=== PATIENT | male | born 1985 | race Caucasian/White ===

== ENCOUNTER 2025-06-17 11:52 | Emergency (ER) | payer MEDICAID, SELFPAY ==
--- OUTSIDE RECORDS SUMMARY | 2025-04-23 07:51 | XMS_ITS | Encounter Summary ---
Author Organization Healthcare Address [address] [place] [address] Care Team Providers Care O And M Supervisor Name Role Phone Day, Marilin PATEL Primary Care Provider [phone] Reason for Referral * Imaging (Routine) - Closed Specialty Diagnoses / Procedures Referred By Mary hill Referred To Contact Radiology Diagnoses Intra-abdominal abscess (CMS/HCC) Procedures CT Abdomen Pelvis w IV Contrast Anais Easton MD [address] [phone] Phone: tel: fax: Referral ID Status Reason Start Date Expiration Date Visits Re quested Visits Authorized [id number] Closed 04/04/2025 10/04/2026 1 1 Reason for Visit * Imaging (Routine) - Closed Specialty Diagnoses / Procedures Referred By Mary hill Referred To Contact Radiology Diagnoses Intra-abdominal abscess (CMS/HCC) Procedures CT Abdomen Pelvis w IV Contrast Anais Easton MD [address] [facility] [address] [place] [phone] Phone: tel: fax: Referral ID Status Reason Start Date Expiration Date Visits Re quested Visits Authorized [id number] Closed 04/04/2025 10/04/2026 1 1 Encounter Details Date Type Department Care Team (Latest Contact Info) Description 04/23/2025 8:51 AM EDT - 04/23/2025 11:59 PM EDT Hospital Encounter [facility] [address] [place] [address] Intra-abdominal abscess (CMS/HCC) Discharge Disposition: Home or Self Care Social History Tobacco Use Types Packs/Day Years Used Date Smoking Tobacco: Every Day Passive Smoke Exposure: Never Smokeless Tobacco: Former Alcohol Use Standard Drinks/Week Comments Never 0 (1 standard drink = 0.6 oz pur e alcohol) AUDIT-C Answer Date Recorded Q1: How often do you have a drink containing alcohol? Never 04/04/2025 Q2: How many drinks containi ng alcohol do you have on a typical day when you are drinking? Patient does not drink 5 Q3: How often do you have si x or more drinks on one occasion? Never 04/04/2025 Sex and Gender Information Value Date Recorded Sex Assigned at Not on file Legal Sex Male 8:42 PM EDT Gender Identity Male 06/11/2025 1:33 PM EDT Sexual Orientation Not on file documented as of this encounter Medications at Time of Discharge atomoxetine (Strattera) 100 MG capsule Take 1 capsule by mouth daily. emtricitabine-tenofov ir disoproxil fumarate (Truvada) 200-300 MG tabletIndications:Con tact with and (suspected) exposure to human immunodeficiency virus (hiv) Take 1 tablet by mouth daily. 90 tablet 5 famotidine (Pepcid) 20 MG tablet Take 1 tablet by mouth Daily. fluticasone (Flonase) 50 MCG/ACT nasal spray 1 spray per nostril every day as needed allergies 5 magnesium oxide (Mag-Ox) 400 (240 Mg) MG tablet 5 Melatonin 5 MG tablet tablet take 1-2 tab every night as needed insomnia 5 Mucus Relief 600 MG 12 hr tablet take 1 tab 2 times a day as needed cough/congestio n 5 Multiple Vitamin (Multivitamin) tablet Take 1 tablet by mouth daily. 5 omeprazole (PriLOSEC) [address] capsule daily. 5 traZODone (Desyrel) 50 MG tablet take 1/2 tab - 1 tab every night 5 FLUoxetine (PROzac) 20 MG capsule Take 1 capsule by mouth Daily. 06/07/20 25 ibuprofen 200 MG tablet Take 2 tablets by mouth. 06/07/20 25 SudoGest 30 MG tablet TAKE 2 Tablets by mouth BY MOUTH TWICE DAILY NEEDED FOR congestion 5 06/07/20 25 documented as of this encounter Miscellaneous Notes * Bravo Biggs - Laura Lezama - 04/23/2025 8:58 AM EDT Images from the original note were not included. 1639 Caring for Yourself after Contrast Imaging If you had ORAL contrast: ? You can go back to your normal diet and activities as tolerated. ? Drink plenty of fluids, unless told otherwise. If you had IV contrast: ? You can go back to your normal diet and activities as tolerated. ? Drink plenty of fluids, unless told otherwise. ? Leave a bandage on the site for 30 minutes (where the IV was inserted or blood was drawn). If you had Intravesical (bladder) contrast: ? Return to normal diet and activity. What you need to know about delayed reaction to IV contrast What is IV Contrast? ? Contrast is a dye that is put into your body through an IV. ? It is used for imaging scans such as CT scans and MRIs. ? The contrast makes blood vessels, organs and other parts of your body show up better on the scan. What do I need to do after IV contrast? ? Drink lots of fluids. This will help flush the contrast out of your system. ? Drink 2-3 extra glasses or bottles of water within 4 hours of your scan. What is a contrast reaction? ? A contrast reaction is a bad side effect from the contrast dye. ? It is rare but it does happen. ? They can be mild - such as sneezing, itching, or hives. ? They can be severe - such as trouble breathing, throat swelling, and irregular heart beat. When do these reactions happen? ? They often happen right after the contrast is injected. ? Some happen hours after going home. Go to the nearest Emergency Department right away if you have any of these symptoms after you leavethe clinic or hospital. ? Sneezing ? Itching in your mouth, throat, eyes, ears, or skin ? Rash or hives ? Throwing up or stomach sickness ? High heart rate or ?racing? of your heart ? Feeling dizzy or woozy ? Feeling short of breath or like you can?t take a deep breath ? Feeling very anxious for no other reason It is very important that these reactions be treated. Tell the doctor or nurse that you are having a reaction to IV contrast dye. Do not ignore any sign of a reaction! All reactions must be assessed by a doctor. Call 911 if you are alone and your reaction is more than mild sneezing or itching. If you have a mild reaction, call to speak with a Radiologist, explain that you havehad a contrast reaction, as this needs to be added to your medical record. documented in this encounter Plan of Treatment Upcoming Encounters Date Type Department Care Team (Late st Contact Info) Description 06/20/2025 11:00 AM EST Office Visit [facility] [address] [place] [address] Douglas Sanders PA [address] [facility] [address] [place] [id number] 06/25/2025 11:30 AM EST Office Visit [facility] [address] [place] [id number] Dominique Garcia APRN [address] [place] [id number] documented as of this encounter Procedures Procedure Name Priority Date/Time Associated Diagnosis Comments CT ABDOMEN PELVIS W IV CONTRAST Routine 04/23/2025 9:57 AM EDT Intra-abdominal abscess (CMS/HCC) documented in this encounter Results * CT Abdomen Pelvis w IV Contrast (04/23/2025 9:57 AM EDT) Anatomical Region Laterality Modality Abdomen, Pelvis Computed Tomogra phy Impressions 04/23/2025 10:40 AM EDT Possible superinfection of a chronic collection associated with a prior ileostomy and a prior midline supraumbilical incision. CRITICAL RESULT: No. COMMUNICATION: Per this written report. Drafted by Oswaldo Knox MD on 04/23/2025 10:35 AM Final report signed by Oswaldo Knox MD on 04/23/2025 10:40 AM Narrative 04/23/2025 10:40 AM EDT CLINICAL INDICATION: intra-abdominal abscess TECHNIQUE: Multiple axial CT images were obtained from lung bases through pubic symphysis following administration of IV contrast, Omnipaque 300, 100 mL. Reformatted images in the coronal and sagittal planes were generated from the axial data set to facilitate diagnostic accuracy. Total DLP (Dose-Length Product): 430.55 mGy.cm. Please note: The reported value represents the total of one or more individual components during the CT acquisition on this date and at this time, and as such, the same value may appear in more than one CT report depending on the interpreting/reporting physicians. COMPARISON: September 21, 2024 FINDINGS: Lower Chest: There is basilar atelectasis. Mild motion degradation. Normal heart size. Solid Abdominal Organs: No focal liver lesion. The gallbladder and bile duct are normal. The pancreas, spleen, adrenal glands, and kidneys are normal. GI Tract/Mesentery/Peritoneum: The stomach and duodenum are normal. 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 No evidence of bowel obstruction. Changes of partial colectomy with colorectal colonic anastomosis in the left lower quadrant. There is a chronic appearing fluid collection with associated inflammation. The midline supraumbilical portion of the collection measures approximately 4 cm, previously 1.6 cm. The portion of the collection that extends toward the old ileostomy from deep to the abdominal wall musculature measures 8.8 cm, not substantially changed. Overall the collection extends from the midline in the supraumbilical location through the abdominal wall and then continues to the right of midline back out to the abdominal wall to the site of the presumed prior ileostomy. The total amount of fluid is increased compared to the prior examination. The amount of inflammation at the midline portion of the collection has increased. More inferiorly within the abdominal cavity there is a focus of inflammation with associated calcification in an infraumbilical location which is favored to be fat necrosis. It appears more inflamed than on the prior exam. Pelvic Viscera: The bladder and prostate are within normal limits Lymph Nodes/Vasculature: No adenopathy. Normal caliber aorta and IVC Free Fluid: No free fluid Musculoskeletal and Body Wall: Again noted is a linear fluid collection with increased fluid and increased inflammation involving the midline at the abdomen and prior right ileostomy site. Procedure Note Oswaldo Knox MD - 04/23/2025 CLINICAL INDICATION: intra-abdominal abscess TECHNIQUE: Multiple axial CT images were obtained from lung bases through pubicsymphysis following administration of IV contrast, Omnipaque 300, 100 mL.Reformatted images in the coronal and sagittal planes were generated fromthe axial data set to facilitate diagnostic accuracy. Total DLP (Dose-Length Product): 430.55 mGy.cm. Please note: The reportedvalue represents the total of one or more individual components during theCT acquisition on this date and at this time, and as such, the same valuemay appear in more than one CT report depending on theinterpreting/reporting physicians. COMPARISON: September 21, 2024 FINDINGS: Lower Chest: There is basilar atelectasis. Mild motion degradation. Normalheart size. Solid Abdominal Organs: No focal liver lesion. The gallbladder and bileduct are normal. The pancreas, spleen, adrenal glands, and kidneys arenormal. GI Tract/Mesentery/Peritoneum: The stomach and duodenum are normal. Thereare changes of ileocecectomy with ileocolic anastomosis. No evidence ofbowel obstruction. Changes of partial colectomy with colorectal colonicanastomosis in the left lower quadrant. There is a chronic appearing fluidcollection with associated inflammation. The midline supraumbilicalportion of the collection measures approximately 4 cm, previously 1.6 cm.The portion of the collection that extends toward the old ileostomy fromdeep to the abdominal wall musculature measures 8.8 cm, not substantiallychanged. Overall the collection extends from the midline in thesupraumbilical location through the abdominal wall and then continues tothe right of midline back out to the abdominal wall to the site of thepresumed prior ileostomy. The total amount of fluid is increased comparedto the prior examination. The amount of inflammation at the midlineportion of the collection has increased. More inferiorly within the abdominal cavity there is a focus ofinflammation with associated calcification in an infraumbilical locationwhich is favored to be fat necrosis. It appears more inflamed than on theprior exam. Pelvic Viscera: The bladder and prostate are within normal limits Lymph Nodes/Vasculature: No adenopathy. Normal caliber aorta and IVC Free Fluid: No free fluid Musculoskeletal and Body Wall: Again noted is a linear fluid collectionwith increased fluid and increased inflammation involving the midline atthe abdomen and prior right ileostomy site. IMPRESSION: Possible superinfection of a chronic collection associated with a priorileostomy and a prior midline supraumbilical incision. CRITICAL RESULT: No. COMMUNICATION: Per this written report. Drafted by Oswaldo Knox MD on 04/23/2025 10:35 AM Final report signed by Oswaldo Knox MD on 04/23/2025 10:40 AM us Anais Easton MD IMG CT PROCEDURES Final R esult documented in this encounter Visit Diagnoses Diagnosis Intra-abdominal abscess (CMS/HCC) Peritoneal abscess documented in this encounter Administered Medications Inactive Administered Medications - up to 3 most recent administrations Medication Order MAR Action Action Date Dose Rate Site iohexol (OMNIPaque) 300 MG/ML injection 100 mL 100 mL, Intravenous, Once in imaging, 1 dose, Starting on 04/23/25 at 0858, Until 04/23/25 at 0945, Routine, Imaging Protocol Orders Given 04/23/2025 9:45 AM EDT 100 mL iohexol (OMNIPaque) 9 MG/ML oral contrast 500 mL 500 mL, Oral, Once in imaging, 1 dose, Starting on 04/23/25 at 0858, Until 04/23/25 at 0919, Routine, Imaging Protocol Orders Given 04/23/2025 9:19 AM EDT 500 mL documented in this encounter Additional Health Concerns Assessment Noted Time A Body Mass Index follow-up plan has been documented for the patient 04/13/2025 2:30 PM EDT documented as of this encounter Care Teams O And M Supervisor Relationship Specialty Start Date End Date Day, AMANDA Gaston [address] [place] [address] PCP - General 12/26/20 documented as of this encounter
--- OUTSIDE RECORDS SUMMARY | 2025-05-09 12:45 | XMS_ITS | Encounter Summary ---
Author Organization Healthcare Address [address] [place] [address] Care Team Providers Care Silver [employer] Mixer Name Role Phone Day, Marilin PATEL Primary Care Provider [phone] Reason for Visit * Reason Comments Follow-up Encounter Details Date Type Department Care Team (Late st Contact Info) Description 05/09/2025 1:45 PM EDT Office Visit [facility] [address], [address] [place] [address] Anais Easton MD [address] [place] [address] Infected prosthetic mesh of abdominal wall, subsequent encounter (Primary Dx); Recurrent ventral incisional hernia; Intra-abdominal abscess (CMS/HCC) Social History Tobacco Use Types Packs/Day Years Used Date Smoking Tobacco: Former Cigarettes Passive Smoke Exposure: Never Smokeless Tobacco: Former Tobacco Cessation:Counseling Given: Not Answered Alcohol Use Standard Drinks/Week Comments Never 0 (1 standard drink = 0.6 oz pur e alcohol) AUDIT-C Answer Date Recorded Q1: How often do you have a drink containing alcohol? Never 05/09/2025 Q2: How many drinks containi ng alcohol do you have on a typical day when you are drinking? Patient does not drink Q3: How often do you have si x or more drinks on one occasion? Never 05/09/2025 Sex and Gender Information Value Date Recorded Sex Assigned at Not on file Legal Sex Male 8:42 PM EDT Gender Identity Male 06/11/2025 1:33 PM EDT Sexual Orientation Not on file documented as of this encounter Last Filed Vital Signs Vital Sign Reading Time Taken Comments Blood Pressure 108/73 05/09/2025 1:04 PM EDT Pulse 87 05/09/2025 1:04 PM EDT Temperature 36.4 C (97.5 F) 05/09/2025 1:04 PM EDT Respiratory Rate 16 05/09/2025 1:04 PM EDT Oxygen Saturation 98% 05/09/2025 1:04 PM EDT Inhaled Oxygen Concentration - - Weight 96.3 kg (212 lb 6.4 oz) 05/09/2025 1:04 P M EDT Height 180.3 cm (5' 11 ) 05/09/2025 1:04 PM EDT Body Mass Index 29.62 05/09/2025 1:04 PM EDT documented in this encounter Functional Status * AUDIT-C Score Answer Date of Assessment Author 0 05/09/2025 1:04 PM EDT Marilin Wakefield * Question Answer Date of Assessment Author Q1: How often do you have a drink containing alcohol? Never 05/09/2025 1:04 PM EDT Penny Gama Q2: How many drinks containing alcohol do you have on a typical day when you are drinking? Patient does not drink 05/09/2025 1:04 PM EDT Marilin Gama Q3: How often do you have six or more drinks on one occasion? Never 05/09/2025 1:04 PM EDT Penny Gama documented as of this encounter Miscellaneous Notes * Progress Notes - Sky Curran MD - 05/09/2025 1:45 PM EDT 05/09/25 Brandon Barfield Dear Marilin Langley PA, HPI Brandon Barfield is a 40 y.o. year old male with complex PMH including ventral hernia repair with Bard mesh in the retrorectus space presenting for continued evaluation of intra-abdominal abscess. Patient got a CT scan ordered prior to this visit for ongoing evaluation. Patient states that he has been doing well since last visit. Still has episodes of drainage from the two wounds. He states that they undergo cycles of opening up with purulent drainage that transitions to serous fluid before closing again. He denies any fever, chills, nausea, vomiting, respiratory distress, or chest pain. He denies any new changes in health. Denies personal history of HTN, T2DM, DVT, PE, OH, Stroke, or issues with anesthesia. Denies personal use of ASA or blood thinners. Endorses current vaping Review of Systems Relevant review of systems was obtained as able and is negative unless stated above in HPI. Past Medical History Past Medical History[1] Reviewed as documented above Past Surgical History Past Surgical History: Procedure Laterality Date COLECTOMY HERNIA REPAIR Reviewed as documented above Social History reports that he has quit smoking. His smoking use included cigarettes. He has never been exposed totobacco smoke. He has quit using smokeless tobacco. He reports that he does not drink alcohol and does not use drugs. Reviewed as documented above Family History Family History Problem Relation Name Age of Onset Diabetes Father Hypertension Father Reviewed as documented above Current Medications Current Outpatient Medications Medication Sig Dispense Refill atomoxetine (Strattera) 100 MG capsule Take 1 capsule by mouth. emtricitabine-tenofovir disoproxil fumarate (Truvada) 200-300 MG tablet Take 1 tablet by mouth daily. 90 tablet 0 famotidine (Pepcid) 20 MG tablet Take 1 tablet by mouth Daily. fluticasone (Flonase) 50 MCG/ACT nasal spray 1 spray per nostril every day as needed allergies magnesium oxide (Mag-Ox) 400 (240 Mg) MG tablet Melatonin 5 MG tablet tablet take 1-2 tab every night as needed insomnia Mucus Relief 600 MG 12 hr tablet take 1 tab 2 times a day as needed cough/congestion Multiple Vitamin (Multivitamin) tablet Take 1 tablet by mouth daily. omeprazole (PriLOSEC) [address] capsule SudoGest 30 MG tablet TAKE 2 Tablets by mouth BY MOUTH TWICE DAILY NEEDED FOR congestion traZODone (Desyrel) 50 MG tablet take 1/2 tab - 1 tab every night FLUoxetine (PROzac) 20 MG capsule Take 1 capsule by mouth Daily. (Patient not taking: Reported on 05/09/2025) ibuprofen 200 MG tablet Take 2 tablets by mouth. (Patient not taking: Reported on 05/09/2025) No current facility-administered medications for this visit. Vitals Vitals: 05/09/25 1304 BP: 108/73 Pulse: 87 Resp: 16 Temp: 36.4 ??C (97.5 ??F) SpO2: 98% Physical Exam Physical Exam HENT: Head: Normocephalic. Nose: Nose normal. Mouth/Throat: Mouth: Mucous membranes are moist. Eyes: Extraocular Movements: Extraocular movements intact. Conjunctiva/sclera: Conjunctivae normal. Cardiovascular: Rate and Rhythm: Normal rate. Pulmonary: Effort: Pulmonary effort is normal. No respiratory distress. Abdominal: General: Abdomen is flat. There is no distension. Palpations: Abdomen is soft. Comments: 5mm oval wound at the inferior pole of previous surgical incision, closed with epithelialtissue covering. Epithelial tissue over drain hole on upper right of midline incision Musculoskeletal: General: Normal range of motion. Cervical back: Normal range of motion. Skin: General: Skin is warm. Neurological: General: No focal deficit present. Mental Status: He is alert and oriented to person, place, and time. Mental status is at baseline. Psychiatric: Mood and Affect: Mood normal. Behavior: Behavior normal. Thought Content: Thought content normal. BMI: Body mass index is 29.62 kg/m??. Imaging I personally and independently reviewed the CT images available at today's visit which showed: Possible superinfection of a chronic collection associated with a prior ileostomy and a prior midline supraumbilical incision. Assessment and Plan 1. Infected prosthetic mesh of abdominal wall, subsequent encounter Brandon Barfield is a 40 y.o. year old male with complex PMH including ventral hernia repair with Bard mesh in the retrorectus space presenting for continued evaluation of intra-abdominal abscess demonstrated on CT. - We had an in depth discussion about surgical intervention which includes exploratory laparotomy, revision of previous ventral hernia repair with possible mesh salvage, possible mesh removal, possible wound vac placement. - We also discussed non-operative management that would likely not result in cessation of issues. - In a patient informed discussion, per patient's preference he will be allowed time to come to a decision regarding surgical intervention. He will likely proceed with surgery given how impactful hiscondition is on his daily life. - Additionally educated the patient on the importance of nicotine cessation and its effects on wound healing. Patient will call when he is ready to schedule surgery. No follow-ups on file. Sky Curran MD [1] Past Medical History: Diagnosis Date Colon polyp Personal history of other diseases of the digestive system History of esophageal reflux Personal history of other diseases of the musculoskeletal system and connective tissue History of scoliosis Personal history of other infectious and parasitic diseases History of Helicobacter infection Cosigned by Anais Easton MD at 05/10/2025 9:54 AM EDT Associated attestation - Anais Easton MD - 05/10/2025 9:54 AM EDT I saw and evaluated the patient with the resident/fellow. I discussed the case with the resident/fellow and agree with the findings and plan as documented. Mr. Barfield has an infection of his permanent mesh following retrorectus hernia repair in Sep 2023. Unfortunately he continues to have intermittent drainage from two sinus tracts in his skin. They are not currently draining, but he reports the two wounds will open up every couple weeks, drain purulent fluid and then eventually close back up. We reviewed the CT scan in detail. He has a fluid collection with two sinus tracts that extends from the retrorectus mesh to the areas of concern on his abdomen. He has an additional mesh inferior tothe retrorectus mesh, which appears to be rolled up and in an intraperitoneal position. I reviewed the OP notes by Dr. [facility] at [facility]. He placed the retrorectus permanent mesh andpartially removed mesh that was placed intra-peritoneal from a prior repair. This corresponds with the CT scan and exam findings. Discussed options going forward with Mr. Barfield. I do not believe that the infection will resolve with antibiotics alone as this is now long-standing and with a permenent mesh in the retrorectus position. Surgery will be required for clearance. We may be able to attempt salvage, but again, this is highly unlikely. Will determine based on intra-op findings, but most likely will need mesh resection (both mesh pieces) and staged hernia repair. This will be an extensive operation, will require inpatient management post-operatively. He uses a vape, which will need to stop entirely before surgery. Otherwise no diabetes and weight is appropriate. He has complex social situation and time off work will be a challenge, so will need to coordinate timing of surgery carefully. Will plan for this fall pending ability to arrange appropriate perioperative support I have spent a total of 65 minutes on this encounter, including direct patient care and counseling,review of imaging, review of outside hospital records and coordination of care documented in this encounter Plan of Treatment Upcoming Encounters Date Type Department Care Team (Late st Contact Info) Description 06/20/2025 11:00 AM EST Office Visit [facility] [address] [place] [phone] Douglas Sanders PA [address] [place] [address] 06/25/2025 11:30 AM EST Office Visit [facility] General Surgery [address], [address] [place] [id number] Dominique Garcia APRN [address] [place] [id number] documented as of this encounter Visit Diagnoses Diagnosis Infected prosthetic mesh of abdominal wall, subsequent encounter- Primary Recurrent ventral incisional hernia Intra-abdominal abscess (CMS/HCC) Peritoneal abscess documented in this encounter Additional Health Concerns Assessment Noted Time A Body Mass Index follow-up plan has been documented for the patient 05/10/2025 9:54 AM EDT documented as of this encounter Care Teams [employer] Mixer Relationship Specialty Start Date End Date Korin, AMANDA Gaston [address] [place] [address] PCP - General 12/26/20 documented as of this encounter
--- OUTSIDE RECORDS SUMMARY | 2025-05-30 13:45 | XMS_ITS | Encounter Summary ---
Author Organization Healthcare Address [address] [place] [address] Care Team Providers Care Assessment Specialist Name Role Phone Day, Marilin PATEL Primary Care Provider [phone] Encounter Details Date Type Department Care Team (Latest Contact Info) Description 05/30/2025 2:45 PM EDT Pre-Admission Testing [facility] [address] [place] [address] Infected hernioplasty mesh, subsequent encounter [T85.79XD] (Primary Dx); Preop testing Anesthesia Record Procedure Summary Procedure Name Responsible Anesthesiologist Anesthesia Start Time Anesthesia Stop Time LAPAROTOMY, EXPLORATORY Deniz Arias MD 06/07/25 1229 06/07/25 1514 Events Date Time Event Comment 06/07/2025 1140 1229 An Start The patient was reevaluated immediately before sedation and remains eligible for anesthesia plan. 1235 In Room 1235 An Start Data 1251 An Induction The patient was reevaluated immediately before moderate or deep sedation use and before anesthesia induction. 1254 An Intubation 1258 Anesthesia Ready 1323 Proc Start 1501 Proc Fin 1505 An Extubation 1506 an stop data 1507 Out of Room 1514 Handoff to Receiving I compl eted my handoff to the receiving clinician during which we: 1. Identified the patient 2. Identified the responsible provider 3. Reviewed the pertinent medical history 4. Discussed the surgical course 5. Reviewed intra-op anesthesia management and issues during anesthesia 6. Set expectations for post-procedure period 7. Allowed opportunity for questions and acknowledgement of understanding. 1514 An Stop Meds * Agents No agents on file. * Blood No blood administrations on file. Lines, Drains, and Airways Type Details Placement Removal Wound 06/07/25; 1154; Y; Abdomen; Right, Upper; Lap site weeping, vertical scar weeping. 06/07/25 1154 by Severo Carreon RN Wound 06/07/25; 1323; Y; Y es; Surgical; Open Surg; Abdomen; Upper, Mid 06/07/25 1323 by Nathalia Escobar RN Peripheral IV Placement Date: 05/16 12/07; Placement Time: 1143; Catheter Size: 18 G; Orientation: Right; Location: Antecubital; Site Prep: Chlorhexidine ; Local Anesth: None; Technique: Anatomical landmarks; Inserted by: severo carreon; Insertion Attempts: 1; Patient Tolerance: Tolerated well; Removal Date: 06/08/25; Removal Time: 1022; Removal Reason: Discharge 06/07/25 1143 by Radha Philip RN 06/08/25 1022 by Wilder Tucker RN ETT Placement Date: 05/16 12/07; Placement Time: 1254 (created via procedure documentation); Mask Ventilation: 1; Technique: Direct laryngoscopy; Type: ETT - single; Single Lumen Tube Size: 7.5 mm; Cuffed: Yes; Laryngoscope: Ron; Blade Size: 3; Location: Oral; Grade View: Grade I; Insertion Attempts: 1; Placement Verification: Auscultation, Capnometry; Airway Comments: Atraumatic. No change to dentition. ; Placed by: Resident ; Removal Date: 06/07/25; Removal Time: 1505 06/07/25 1254 by Griselda Taylor MD 06/07/25 1505 by Griselda Taylor MD Peripheral IV Placement Date: 05/16 12/07; Placement Time: 1258 (created via procedure documentation); Catheter Size: 18 G; Orientation: Right; Location: Hand; Technique: Anatomical landmarks; Insertion Attempts: 1; Removal Date: 06/08/25; Removal Time: 1023; Removal Reason: Discharge 06/07/25 1258 by Griselda Taylor MD 06/08/25 1023 by Wilder Tucker RN Urethral Catheter Placement Date: 05/16 12/07; Placement Time: 1302; Inserted by: Nathalia Escobar RN; Type: Non-latex, Single lumen, Temperature probe; Size: 16 Fr.; Balloon Size: 10 mL; Urine Returned: Yes; Removal Date: 06/07/25; Removal Time: 1503 06/07/25 1302 by Nathalia Escobar RN 06/07/25 1503 by Nathalia Escobar RN documented in this encounter Social History Tobacco Use Types Packs/Day Years Used Date Smoking Tobacco: Former Cigarettes Passive Smoke Exposure: Never Smokeless Tobacco: Former Tobacco Cessation:Counseling Given: Not Answered Comments:Smoked up to 2 PPD for of/on 20 years and quit 2022 Alcohol Use Standard Drinks/Week Comments Never 0 [...] Sign Reading Time Taken Comments Blood Pressure 114/74 05/30/2025 2:19 PM EDT Pulse 87 05/30/2025 2:19 PM EDT Temperature 36.6 C (97.8 F) 05/30/2025 2:19 PM EDT Respiratory Rate 14 05/30/2025 2:19 PM EDT Oxygen Saturation 97% 05/30/2025 2:19 PM EDT Inhaled Oxygen Concentration - - Weight 96.9 kg (213 lb 10 oz) 05/30/2025 2:19 PM EDT Height 172.7 cm (5' 8 ) 05/30/2025 2:19 PM EDT Body Mass Index 32.48 05/30/2025 2:19 PM EDT documented in this encounter Miscellaneous Notes * PAT Evaluation Note - Pat Peacock PA - 05/30/2025 2:45 PM EDT HPI Brandon Barfield is a 40 y.o. male who presents with Pre-op Diagnosis * Infected hernioplasty mesh, initial encounter ([facility] [T85.79XA] now scheduled for LAPAROTOMY, EXPLORATORY (N/A), IRRIGATION AND DEBRIDEMENT, ABDOMEN (N/A), REPAIR, HERNIA, INCISIONAL (N/A). Datescheduled is 06/07/2025. PMH including ventral hernia repair with Bard [...] He denies any new changes in health. Past Medical History[1] Family History[2] Social History[3] SURGICAL HISTORY: Surgical History[4] Allergies[5] MEDICATIONS: Current Medications[6] ROS Anesthesia: Date of last anesthetic: OSH recurent ventral incisional hernia repair 09/21/23 No GA issues. history of previous anesthesia. Does not have a history of anesthetic complications, obstructive sleep apnea and PONV. Cardiovascular: Does not have angina, CAD, CHF, dyspnea, dysrhythmias, peripheral edema, hyperlipidemia, murmur, orthopnea, peripheral edema, past MN, PVD, syncope or valvular heart disease. no hypertension: Exercise tolerance is 3 flights of stairs. Respiratory: Negative respiratory ROS. Patient has no dyspnea.Has not had an upper respiratory infection in last30 days. HEENT: Does not have difficulty swallowing, chipped teeth or loose teeth.Does not have temporomandibular joint syndrome. HEENT additional comments: + missing 2 front teeth has partial / top. Neurological: Negative neuro ROS. Musculoskeletal: Negative musculoskeletal ROS. Does not have cervical spine limited mobility. [facility] additional comments: + infx due to mesh abdominal wall Gastrointestinal: Does not have GI malignancy or pancreatitis. Does not have cirrhosis, hepatitis or jaundice. Does not have weight loss. GI/ additional comments: + GERD - well controlled + hiatal hernia + infected prosthetic mesh of abdominal wall - this is 2nd correction for past surgery + hx of PUD Genitourinary: Negative ROS. Hematological/Lymphatic: Does not have anemia. History of no DVT. History of no pulmonary embolism. no history of chemotherapy no history of radiation Does not have HIV or tuberculosis. Hem/Lymph ROS additional comments: + hx of MRSA Endocrine/Metabolic: Negative endocrine ROS. Lab Results Component Value Date WBC 9.31 05/30/2025 HGB 15.8 05/30/2025 HCT 48.8 05/30/2025 MCV 92 05/30/2025 PLT 261 05/30/2025 Lab Results Component Value Date GLUCOSE 81 05/30/2025 BUN 8 05/30/2025 CREATININE 0.91 05/30/2025 BCR 9 05/30/2025 NA 140 05/30/2025 K 4.6 05/30/2025 CL 104 05/30/2025 CO2 25 05/30/2025 CA 9.7 04/27/2016 ALBUMIN 4.2 05/30/2025 ALKPHOS 93 05/30/2025 BILITOT <0.2 (L) 05/30/2025 No results found for: HGBA1C Lab Results Component Value Date INR 1.1 02/08/2025 Visit Vitals BP 114/74 Pulse 87 Temp 36.6 ??C (97.8 ??F) (Temporal) Resp 14 Ht 1.727 m (5' 8 ) Wt 96.9 kg (213 lb 10 oz) SpO2 97% BMI 32.48 kg/m?? Smoking Status Former BSA 2.16 m?? Physical Exam Airway Mallampati: II Mouth opening: normal TM distance: >3 FB Neck ROM: full Cardiovascular Rhythm: regular Rate: normal (-) peripheral edema Dental (+) partials Comments: Top 2 front teeth Pulmonary Breath sounds clear to auscultation Neurological Skin Musculoskeletal Extremities Anesthesia Plan ASA 3 Anesthesia technique(s) discussed with the patient/family: AMANDA Raphael [1] Past Medical History: Diagnosis Date Colon polyp Personal history of other diseases of the digestive system History of esophageal reflux Personal history of other diseases of the musculoskeletal system and connective tissue History of scoliosis Personal history of other infectious and parasitic diseases History of Helicobacter infection [2] Family History Problem Relation Name Age of Onset Diabetes Father Hypertension Father Anesthesia problems Neg Hx Malig Hyperthermia Neg Hx [3] Social History Tobacco Use Smoking status: Former Types: Cigarettes Passive exposure: Never Smokeless tobacco: Former Tobacco comments: Smoked up to 2 PPD for of/on 20 years and quit 2022 Vaping Use Vaping status: Some Days Substances: Nicotine, Flavoring Devices: RefInstaGISble tank Substance Use Topics Alcohol use: Never Drug use: Never [4] Past Surgical History: Procedure Laterality Date ABDOMINAL SURGERY total of 10 surgeries, ileostomy and reversal COLECTOMY HERNIA REPAIR x2, mesh [5] No Known Allergies [6] Current Outpatient Medications: atomoxetine, Take 1 capsule by mouth daily. emtricitabine-tenofovir disoproxil fumarate, Take 1 tablet by mouth daily. famotidine, Take 1 tablet by mouth Daily. fluticasone, 1 spray per nostril every day as needed allergies magnesium oxide, Melatonin, take 1-2 tab every night as needed insomnia Mucus Relief, take 1 tab 2 times a day as needed cough/congestion Multivitamin, Take 1 tablet by mouth daily. omeprazole, daily. SudoGest, TAKE 2 Tablets by mouth BY MOUTH TWICE DAILY NEEDED FOR congestion traZODone, take 1/2 tab - 1 tab every night chlorhexidine, Hibiclens shower the day before surgery and the morning of surgery. FLUoxetine, Take 1 capsule by mouth Daily. (Patient not taking: Reported on 05/09/2025) ibuprofen, Take 2 tablets by mouth. (Patient not taking: No sig reported) mupirocin, Apply small amount into each nostril twice daily starting 5 days before surgery. Impact Advanced Recovery, Drink 2 cartons a day starting 5 days before surgery. SSICOLON. Auto Sub for Ensure Surgery if Impact not available. * Preprocedure Instructions - Pat Peacock PA - 05/30/2025 2:45 PM EDT Home Medication Instructions Current Medications Medication Instructions atomoxetine (Strattera) 100 MG capsule Hold day of surgery emtricitabine-tenofovir disoproxil fumarate (Truvada) 200-300 MG tablet On for prep - has not takenrecently, okay to take as needed. famotidine (Pepcid) 20 MG tablet Take morning of surgery fluticasone (Flonase) 50 MCG/ACT nasal spray Take as needed magnesium oxide (Mag-Ox) 400 (240 Mg) MG tablet Hold day of surgery Melatonin 5 MG tablet tablet Take as needed night before surgery Mucus Relief 600 MG 12 hr tablet Take as needed Multiple Vitamin (Multivitamin) tablet Hold day of surgery omeprazole (PriLOSEC) [address] capsule Take morning of surgery SudoGest 30 MG tablet Hold day of surgery traZODone (Desyrel) 50 MG tablet Take as needed night before surgery General Preoperative Instructions You will be called the business day before surgery with your arrival time No food, no thick or dark liquids after midnight the night before the surgery. Please drink clear liquids meaning; water, Gatorade/pedialyte or apple juice until 2 hours prior toarrival time surgery day. No alcohol or smoking prior to surgery Arrive on time to avoid delays Parking/Registration procedure explained You MUST have a responsible adult available for transport to and from hospital Visitation policy for the day of surgery reviewed Bring insurance card, photo ID, along with power of senior trial attorney, guardianship or advanced directives if applicable Do not bring money, jewelry or other valuables Hibiclens bathing instructions reviewed if applicable Notify surgeon of fever, illness, any changes or if you decide not to have surgery documented in this encounter Plan of Treatment Upcoming Encounters Date Type Department Care Team (Late st Contact Info) Description 06/20/2025 11:00 AM EST Office Visit [facility] [address] [place] [address] Douglas Sanders PA [address] [place] [address] [address] [place] [address] 06/25/2025 11:30 AM EST Office Visit [facility] General Surgery [address], [address] [place] [phone] Dominique Garcia APRN [address] [place] [id number] documented as of this encounter Results * (ABNORMAL) Comprehensive metabolic panel (05/30/2025 2:55 PM EDT) Glucose, Plasma 81 74 - 99 mg/dL 05/30/2025 5:45 PM EDT [facility] BUN, Plasma 8 7 - 21 mg/dL 05/30/2025 5:45 PM EDT [facility] Creatinine, Plasma 0.91 0.70 - 1.20 mg/dL 05/30/2025 5:45 PM EDT [facility] BUN/Creatinine Ratio 9 05/30/2025 5:45 PM EDT [facility] Sodium, Plasma 140 136 - 145 mmol/L 05/30/2025 5:45 PM EDT [facility] Potassium, Plasma 4.6 3.6 - 4.9 mmol/L 05/30/2025 5:45 PM EDT [facility] Chloride, Plasma 104 97 - 107 mmol/L 05/30/2025 5:45 PM EDT [facility] CO2, Plasma 25 22 - 29 mmol/L 05/30/2025 5:45 PM EDT [facility] Anion Gap 11 6 - 16 mmol/L 05/30/2025 5:45 PM EDT [facility] Total Calcium, Plasma 9.0 8.9 - 10.2 mg/dL 05/30/2025 5:45 PM EDT [facility] Total Protein 6.8 6.3 - 7.9 g/dL 05/30/2025 5:45 PM EDT [facility] Albumin, Plasma 4.2 3.5 - 5.2 g/dL 05/30/2025 5:45 PM EDT [facility] AST, Plasma 29 10 - 50 U/L 05/30/2025 5:45 PM EDT [facility] Comment:Hemolyzed, result ma y be falsely increased. ALT, Plasma 26 10 - 50 U/L 05/30/2025 5:45 PM EDT [facility] Alkaline Phosphatase, Plasma 93 40 - 115 U/L 05/30/2025 5:45 PM EDT [facility] Total Bilirubin, Plasma <0.2(L) 0.2 - 1.1 mg/dL 05/30/2025 5:45 PM EDT [facility] eGFRcr 108.6 mL/min/1.7 3m*2 05/30/2025 5:45 PM EDT [facility] Comment:Reported eGFRcr in m L/min/1.73m2 is based the CKD-EPI 2020 equation that does not use a race coefficient. Blood Venous blood specimen / Unknown Venipuncture / Unknown 05/30/2025 2:55 PM EDT 05/30/2025 2:59 PM EDT us Pat PATEL LAB BLOOD ORDERABLES Final Result [facility] [address] [place] [id number] * CBC (05/30/2025 2:55 PM EDT) WBC Count 9.31 3.70 - 10.30 10*3/uL LAB HEMATOLOGY METHOD 05/30/2025 5:31 PM EDT [facility] RBC Count 5.33 4.60 - 6.10 10*6/uL LAB HEMATOLOGY METHOD 05/30/2025 5:31 PM EDT [facility] HGB 15.8 13.7 - 17.5 g/dL LAB HEMATOLOGY METHOD 05/30/2025 5:31 PM EDT [facility] HCT 48.8 40.0 - 51.0 % LAB HEMATOLOGY METHOD 05/30/2025 5:31 PM EDT [facility] Platelet Count 261 155 - 369 10*3/uL LAB HEMATOLOGY METHOD 05/30/2025 5:31 PM EDT [facility] MCV 92 79 - 98 fL LAB HEMATOLOGY METHOD 05/30/2025 5:31 PM EDT [facility] MCH 29.6 26.0 - 32.0 pg LAB HEMATOLOGY METHOD 05/30/2025 5:31 PM EDT [facility] MCHC 32.4 30.7 - 35.5 g/dL LAB HEMATOLOGY METHOD 05/30/2025 5:31 PM EDT [facility] RDW 13.2 11.5 - 14.5 % LAB HEMATOLOGY METHOD 05/30/2025 5:31 PM EDT [facility] MPV 11.1 8.8 - 12.5 fL LAB HEMATOLOGY METHOD 05/30/2025 5:31 PM EDT [facility] nRBC 0.0 <=0.0 per 100 WBCs LAB HEMATOLOGY METHOD 05/30/2025 5:31 PM EDT [facility] Blood Venous blood specimen / Unknown Venipuncture / Unknown 05/30/2025 2:55 PM EDT 05/30/2025 2:59 PM EDT Pat PATEL LAB BLOOD ORDERABLES Final Result [facility] [address] [place] [address] documented in this encounter Visit Diagnoses Diagnosis Infected hernioplasty mesh, subsequent encounter [T85.79XD]- Primary Preop testing Unspecified pre-operative examination documented in this encounter Additional Health Concerns Assessment Noted Time A Body Mass Index follow-up plan has been documented for the patient 05/10/2025 9:54 AM EDT documented as of this encounter Care Teams Assessment Specialist Relationship Specialty Start Date End Date Marilin Langley PA [address] [place] [address] PCP - General 12/26/20 documented as of this encounter
--- OUTSIDE RECORDS SUMMARY | 2025-06-07 08:44 | XMS_ITS | Encounter Summary ---
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 Name Role Phone Day, Marilin PATEL Primary Care Provider [phone] Reason for Visit * Auth/Cert (Routine) Specialty Diagnoses / Procedures Referred By Contac t Referred To Contact Diagnoses Infected hernioplasty mesh, initial encounter (CMS/HCC) Infected hernioplasty mesh, initial encounter ([facility]) [T85.79XA] Procedures OR EXPLORATORY OF ABDOMEN OR DEBRIDEMENT, SKIN, SUB-Q TISSUE,=<20 SQ CM OR RPR AA HERNIA 1ST 3-10 CM REDUCIBLE LAPAROTOMY, EXPLORATORY IRRIGATION AND DEBRIDEMENT, ABDOMEN REPAIR, HERNIA, INCISIONAL Anais Easton MD [address] [address] Phone: tel: fax: [facility] [address] [place] [address] Phone: tel: Referral ID Status Reason Start Date Expiration Date Visits Re quested Visits Authorized [id number] 1 3 Encounter Details Date Type Department Care Team (Latest Contact Info) Description 06/07/2025 9:44 AM EDT - 06/08/2025 2:13 PM EDT Hospital Encounter [facility] [address] [place] [address] Anais Easton MD [address] [phone] Infected hernioplasty mesh, initial encounter ([facility]) Discharge Disposition: Home or Self Care Social History Tobacco Use Types Packs/Day Years Used Date Smoking Tobacco: Former Cigarettes Passive Smoke Exposure: Never Smokeless Tobacco: Former Comments:Smoked up to 2 PPD for of/on [...] Sign Reading Time Taken Comments Blood Pressure 101/65 06/08/2025 8:12 AM EDT Pulse 57 06/08/2025 8:12 AM EDT Temperature 36.4 C (97.6 F) 06/08/2025 8:12 AM EDT Respiratory Rate 16 06/08/2025 8:12 AM EDT Oxygen Saturation 95% 06/08/2025 8:12 AM EDT Inhaled Oxygen Concentration - - Weight 101 kg (223 lb 8.7 oz) 06/07/2025 8:00 PM EDT Height 172.7 cm (5' 7.99 ) 06/07/2025 8:00 PM ED T Body Mass Index 34 06/07/2025 8:00 PM EDT documented in this encounter Functional Status * Calculated C-SSRS Risk Score (Lifetime/Recent) Answer Date of Assessment Author No Risk Indicated 06/07/2025 8:00 PM EDT Annie Armenta RN * Question Answer Date of Assessment Author 1. Wish to be (Past 1 Month) No 06/07/2025 8:00 PM EDT Rosario Farris RN 2. Non-Specific Active Suicidal Thoughts (Past 1 Month) No 06/07/2025 8:00 PM EDT Rosario Farris RN 6. Suicidal Behavior (Lifetime) No 06/07/2025 8:00 PM EDT Rosario Farris RN documented as of this encounter Discharge Instructions * Discharge Instructions* Mayda Chand, OPERATING ROOM AIDE - 06/08/2025 10:08 AM EDT Discharge Instructions: Precautions: - You have received sedation/anesthesia today. You may not drive, drink alcohol, or do anything that requires a clear head for the next 24 hours. Medications: - You should take Tylenol every 6 hours for pain -You should take methocarbamol 4 times per day for muscle spasms. - You have been prescribed pain medications to be taken as needed for severe pain. Do NOT take any home prescribed narcotics while taking the ones prescribed at discharge. - You should take the stool softener prescribed as long as you are taking narcotics. - You may resume your previous medications unless otherwise instructed. Nutrition: - You may resume your normal diet as tolerated, focusing on liquids to keep yourself hydrated. Activity: - Walking and climbing stairs is ok and encouraged. You should refrain from any strenuous activity/exercise until your follow up appointment. - No lifting anything >5-10lbs for the next 6 weeks. - You may not drive for 48 hours after surgery, or while taking narcotics. - Activity as tolerated. Dressing: - It is normal to have some drainage from your incision. This typically is a clear, straw, pink, orclear red color. You may cover your incision with clean gauze and tape from your local pharmacy; you should change this gauze daily, most commonly after you have showered. Rarely a tail from the suture may poke out. This is ok and non-hazardous. This suture will dissolve on its own over time, but if this suture end is bothersome, the end may be trimmed with a small pair of scissors. Please do notattempt to pull the suture out. - Underneath your dressing you have steri strips across your incision. Do not pick them off, they will fall off on their own after approximately 2 weeks. - You may shower. Let the soapy water run over your incisions. Do not scrub at your incisions. After you shower, pat your incisions dry with a clean towel. - You have ari across your incision. These will be removed in clinic at your follow up appointment. - Please contact the clinic if your skin begins to separate or if you notice drainage from the incision that is purulent or foul smelling. Potential Issues: - It is normal to have some pain and soreness, especially around the incisions - A small amount of clear drainage from the incision may be expected, call the office if the drainage becomes bloody, purulent (pus), or foul-smelling - Call the office if you start to have increased redness, drainage, swelling, or increased pain around your incision - Call the office if you have a fever greater than 101 F - Call the office if you have severe abdominal discomfort, nausea and vomiting, or feeling unwell Follow Up: -You will be scheduled to follow up with Jose Garcia or Dr Easton for post op/staple removal. You will be called with a time. Questions or Concerns and Appointments If there are questions or concerns after discharge from the hospital, call Jimena Suero, Nurse Coordinator between 7am-3pm at [phone]. If it is after hours, weekends, and holidays please call [phone] and ask for the resident contract loader for Emergency General Surgery. For appointments please call our General Surgery Clinic at [phone]. Medication requests should be made between the hours of 9:00 AM to 3:00 PM Tuesday thru Tuesday. Please note that based upon recent changes to [place] law related to prescribing opioid pain medications, our providers will not provide refills on controlled medications after your hospital discharge following a major surgery or trauma. [place] 218[place], [place]205 [place] 201 KAR9:260. documented in this encounter Medications at Time of Discharge acetaminophen (Tylenol) 500 MG tablet Take 2 tablets by mouth every 6 hours. 100 tablet 06/08/2025 atomoxetine (Strattera) 100 MG capsule Take 1 capsule by mouth daily. docusate sodium 100 MG capsule Take 100 mg by mouth 2 times a day. 30 capsule 06/08/2025 emtricitabine-tenofov ir disoproxil fumarate (Truvada) 200-300 MG tabletIndications:Con tact with and (suspected) exposure to human immunodeficiency virus (hiv) Take 1 tablet by mouth daily. 90 tablet 03/18/2025 famotidine (Pepcid) 20 MG tablet Take 1 tablet by mouth Daily. fluticasone (Flonase) 50 MCG/ACT nasal spray 1 spray per nostril every day as needed allergies 04/23/2025 magnesium oxide (Mag-Ox) 400 (240 Mg) MG tablet 03/14/2025 Melatonin 5 MG tablet tablet take 1-2 tab every night as needed insomnia 04/23/2025 methocarbamol (Robaxin) 750 MG tablet Take 1 tablet by mouth every 8 hours. 42 tablet 06/08/2025 Mucus Relief 600 MG 12 hr tablet take 1 tab 2 times a day as needed cough/congesti on 04/23/2025 Multiple Vitamin (Multivitamin) tablet Take 1 tablet by mouth daily. 03/14/2025 mupirocin (Bactroban) 2 % ointmentIndications:I nfected prosthetic mesh of abdominal wall, subsequent encounter Apply small amount into each nostril twice daily starting 5 days before surgery. 15 g 05/29/2025 naloxone (Narcan) 4 mg/0.1 mL nasal spray 1. Give 1 spray in nostril for no/slow breathing or cannot wake after opioid use 2. Call 911 3. Repeat in other nostril if symptoms continue 1 each 06/08/2025 omeprazole (PriLOSEC) [address] capsule daily. 05/09/2015 ondansetron ODT (Zofran-ODT) 4 MG disintegrating tablet Dissolve 1 tablet on the tongue every 6 hours as needed for nausea or vomiting. 20 tablet 06/08/2025 oxyCODONE (Roxicodone) 5 MG immediate release tablet Take 1 tablet by mouth every 4 hours as needed for moderate pain. May take up to 2 tablets (10 mg total) by mouth every 4 (four) hours as needed for pain 25 tablet 06/08/2025 traZODone (Desyrel) 50 MG tablet take 1/2 tab - 1 tab every night 04/23/2025 documented as of this encounter Miscellaneous Notes * Care Plan - Wilder Tucker RN - 06/08/2025 10:59 AM EDT Problem: Adult Inpatient Plan of Care Goal: Plan of Care Review Outcome: Met Flowsheets (Taken 06/08/2025 1058) Progress: improving Plan of Care Reviewed With: patient Goal: Patient-Specific Goal (Individualized) Outcome: Met Flowsheets (Taken 06/08/2025 0700) Patient/Family-Specific Goals (Include Timeframe): Pt will remain free from fall/injury this shift and have controlled pain Individualized Care Needs: pain control and safety Anxieties, Fears or Concerns: pain and heartburn Goal: Absence of Hospital-Acquired Illness or Injury Outcome: Met Goal: Optimal Comfort and Wellbeing Outcome: Met Problem: Fall Injury Risk Goal: Absence of Fall and Fall-Related Injury Outcome: Met Intervention: Promote Injury-Free Environment Flowsheets (Taken 06/08/2025 0500 by Josefina Escamilla CNA) Safety Promotion/Fall Prevention: clutter-free environment maintained fall prevention program maintained lighting adjusted nonskid shoes/slippers when out of bed safety round/check completed room organization consistent Problem: Functional Deficit Goal: Improved Balance and Postural Control Outcome: Met Intervention: Optimize Balance and Safe Activity Flowsheets Taken 06/08/2025 1000 by Aníbal Blank CNA Activity Management: activity adjusted per tolerance Taken 06/08/2025 0500 by Josefina Escamilla CNA Safety Promotion/Fall Prevention: clutter-free environment maintained fall prevention program maintained lighting adjusted nonskid shoes/slippers when out of bed safety round/check completed room organization consistent Goal: Optimal Cognitive Function Outcome: Met Goal: Optimal Coordination Outcome: Met Goal: Improved Muscle Strength Outcome: Met Goal: Improved Muscle Tone Outcome: Met Goal: Optimal Range of Motion Outcome: Met Goal: Compensation for Sensory Deficit Outcome: Met Problem: Infection Goal: Absence of Infection Signs and Symptoms Outcome: Met Intervention: Prevent or Manage Infection Flowsheets (Taken 06/08/2025 0000 by Annie Farris) Isolation Precautions: precautions maintained Problem: Mobility Impairment Goal: Optimal Mobility Outcome: Met Intervention: Optimize Mobility Flowsheets (Taken 06/08/2025 1000 by Aníbal Blank CNA) Activity Management: activity adjusted per tolerance Problem: Pain Acute Goal: Optimal Pain Control and Function Outcome: Met Intervention: Develop Pain Management Plan Flowsheets (Taken 06/08/2025 0507 by Annie Farris) Pain Management Interventions: medication (see MAR) breathing exercises emotional support pain management plan reviewed with patient/caregiver pillow support provided quiet environment facilitated relaxation techniques promoted rest prescribed exercises encouraged Problem: Self-Care Deficit Goal: Improved Ability to Complete Activities of Daily Living Outcome: Met Intervention: Promote Activity and Functional [place] Flowsheets (Taken 06/08/2025 0000 by Annie Farris) Activity Assistance Provided: assistance, stand-by Problem: Surgery Nonspecified Goal: Absence of Bleeding Outcome: Met Intervention: Monitor and Manage Bleeding Flowsheets (Taken 06/08/2025 1058) Bleeding Management: dressing monitored Goal: Effective Bowel Elimination Outcome: Met Goal: Fluid and Electrolyte Balance Outcome: Met Goal: Blood Glucose Level Within Target Range Outcome: Met Goal: Absence of Infection Signs and Symptoms Outcome: Met Goal: Anesthesia/Sedation Recovery Outcome: Met Goal: Optimal Pain Control and Function Outcome: Met Goal: Nausea and Vomiting Relief Outcome: Met Goal: Effective Urinary Elimination Outcome: Met Goal: Effective Oxygenation and Ventilation Outcome: Met * Ashutosh Hollis RN - 06/08/2025 10:21 AM EDT Images from the original note were not included. [id number] Naloxone Nasal [place] WHY is this medicine prescribed? Prescription and nonprescription (over the counter) naloxone nasal spray is used along with emergency medical treatment to reverse the life-threatening effects of a known or suspected opiate (narcotic) overdose in adults and children. Naloxone nasal spray is in a class of medications called opiate antagonists. It works by blocking the effects of opiates to relieve dangerous symptoms caused by high levels of opiates in the blood. HOW should this medicine be used? Naloxone comes as a solution (liquid) to spray into the nose. It is usually given as needed to treat opiate overdoses. Each naloxone nasal spray contains a single dose of naloxone and should be used only once. You will probably be unable to treat yourself if you experience an opiate overdose. You should makesure that your family members, caregivers, or the people who spend time with you know how to tell if you are experiencing an overdose, how to use naloxone nasal spray, and what to do until emergency m edical help arrives. Your doctor or pharmacist will show you and your family members how to use themedication. You and anyone who may need to give the medication should read the instructions that come with the nasal spray. Ask your pharmacist for the instructions or visit the calculator operator's website to get the instructions. You should keep the nasal spray available at all times in case you experience an opioid overdose. Be aware of the expiration date on your device and replace the spray when this date passes. Naloxone nasal spray may not reverse the effects of certain opiates such as buprenorphine (Belbuca,Buprenex, Butrans, Sublocade) and pentazocine (Talwin) and may require additional naloxone doses with a new nasal spray each time. Symptoms of an opioid overdose include excessive sleepiness, not awakening when spoken to in a loudvoice or when the middle of your chest is rubbed firmly, shallow or stopped breathing, or small pupils (black circles in the center of the eyes). If someone sees that you are experiencing these symptoms, he or she should give you your first naloxone dose and then call 911 immediately. After receiving the naloxone nasal spray, a person should stay with you and watch you closely until emergency medical help arrives. To give the inhaler, follow these steps: ? Lay the person on their back to give the medication. ? Remove the naloxone nasal spray from the box. Peel back the tab to open the spray. ? Do not prime the nasal spray before using it. ? Hold the naloxone nasal spray with your thumb on the bottom of the plunger and your first and middle fingers on either side of the nozzle. ? Gently insert the tip of the nozzle into one nostril, until your fingers on either side of the nozzle are against the bottom of the person's nose. Provide support to the back of the person's neck with your hand to allow the head to tilt back. ? Press the plunger firmly to release the medication. ? Remove the nasal spray nozzle from the nostril after giving the medication. ? Turn the person on their side (recovery position) and call for emergency medical assistance immediately after giving the first naloxone dose. ? If the person does not respond by waking up, to voice or touch, or breathing normally or respondsand then relapses, give another dose. If needed, give additional doses (repeating steps 2 through 7) every 2 to 3 minutes in alternate nostrils with a new nasal spray each time until emergency medical assistance arrives. ? Put the used nasal spray(s) back in the container and out of reach of children until you can safely dispose of it. Ask your pharmacist or doctor for a copy of the calculator operator's information for the patient. Are there OTHER USES for this medicine? This medication may be prescribed for other uses; ask your doctor or pharmacist for more information. What SPECIAL PRECAUTIONS should I follow? Before receiving naloxone nasal spray, ? tell your doctor and pharmacist if you are allergic to naloxone, any other medications, or any ofthe ingredients in naloxone nasal spray. Ask your pharmacist for a list of the ingredients. ? tell your doctor and pharmacist what other prescription and nonprescription medications, vitamins, nutritional supplements, and herbal products you are taking or plan to take. Be sure to tell your doctor about all the medications you are taking. ? tell your doctor if you have or have ever had heart disease. ? tell your doctor if you are , plan to become , or are . If you receive naloxone nasal spray during , your doctor may need to monitor your unborn baby carefullyafter you receive the medication. What SIDE EFFECTS can this medicine cause? Some side effects can be serious. If you experience any of these symptoms, get emergency medical treatment: ? signs of opiate withdrawal such as body aches, diarrhea, fast, pounding, or irregular heartbeat, fever, runny nose, sneezing, sweating, yawning, nausea, vomiting, nervousness, restlessness, irritability, shivering, trembling, stomach cramps, weakness, and the appearance of hair on the skin standing on end ? seizures ? loss of consciousness ? crying more than usual (in babies treated with naloxone nasal spray) ? stronger than normal reflexes (in babies treated with naloxone nasal spray) Naloxone nasal spray may cause other side effects. Call your doctor if you have any unusual problems while receiving this medication. If you experience a serious side effect, you or your doctor may send a report to the Food and Drug Administration's (FDA) MedWatch Adverse Event Reporting program online (https://www.fda.gov/Safety/MedWatch) or by phone ( ). What should I know about STORAGE and DISPOSAL of this medication? Keep this medication in the container it came in, tightly closed, and out of reach of children. Store it at room temperature and away from light, excess heat and moisture (not in the bathroom). Do not freeze the naloxone nasal spray. Keep all medication out of sight and reach of children as many containers are not child-resistant. Always lock safety caps. Place the medication in a safe location - one that is up and away and out of their sight and reach. https://www.[employer]plista Dispose of unneeded medications in a way so that pets, children, and other people cannot take them.Do not flush this medication down the toilet. Use a medicine take-back program. Talk to your pharmacist about take-back programs in your community. Visit the FDA's Safe Disposal of Medicines website h ttps://goo.gl/c4Rm4p for more information. What OTHER INFORMATION should I know? Keep a written list of all of the prescription and nonprescription (ooej-wxi-pnrjmym) medicines, vitamins, minerals, and dietary supplements you are taking. Bring this list with you each time you visit a doctor or if you are admitted to the hospital. You should carry the list with you in case of megan rgencies. Brand Name(s): ? Kloxxado?? ? Narcan?? ? Rezenopy?? also available generically This report on medications is for your information only, and is not considered individual patient advice. Because of the changing nature of drug information, please consult your physician or pharmacist about specific clinical use. The [place] [employer] represents that the information provided hereunder was formulated with a reasonable standard of care, and in conformity with professional standards in the field. The [employer] makes no representations or warranties, express or implied, including, but not limited to, any implied warranty of merchantability and/or fitness for a particular purpose, with respect to such information and specifically disclaims all such warranties. Users are advised that decisions regarding drug therapy are complex medical decisions requiring the independent, informed decision of an appropriate health associate director career services, and the information is provided for informational purposes only. The entire monograph for a drug should be reviewed for a thorough understanding of the drug's actions, uses and side effects. The [place] [employer] does not endorse or recommend the use of any drug.The information is not a substitute for medical care. AHFS?? Patient Medication Information?. ?? Copyright, 2023. The [employer]??, [address], [address], [place], [place]. All Rights Reserved. Duplication for commercial use must be authorized by [facility]. Selected Revisions: March 03, 2024. AHFS?? Patient Medication Information?. ?? Copyright, 2024 * Bravo Biggs - Ashutosh Tamayo RN - 06/08/2025 10:21 AM EDT Images from the original note were not included. 450 Safe Use of Controlled Substances Taking a medicine may be an important part of your treatment. Your body should heal faster if you take medicine safely. Some medicines are called Controlled Substances. This means their use is controlled by law. Some of these can harm you if you do not take them safely. What can I do to make sure I take my medicine safely? ? Follow the instructions we give you for how to take your medicine. ? We will give you an instruction sheet for each of your medicines. Ask your doctor or nurse if youdo not get these instructions. ? Some medicines make you sleepy or cloud your thinking. Do not drive, use heavy machines or do dangerous activities while taking these medicines. ? Read the label on the bottle each time you take your medicine. ? Do not take your medicine with alcohol or other sedatives. ? Do not take medicine after the expiration date. ? It is against the law to sell your medicine or share it with others. ? Do not drive while using your medicine. How should I store my medicine? Store it in a safe place. This will keep others from taking your medicine and help you keep track of it. ? Store controlled substances in a cabinet or container that you can lock. ? Keep it in a place that is cool, dry and out of direct sunlight. ? Do not leave it in the car. ? Do not store in a refrigerator or freezer, unless your doctor tells you to. ? Call your doctor right away if your medicine is lost or stolen. How should I dispose of medicine that is or no longer needed? You may have medicine left over that you do not need or should not take. You must dispose of it theright way to protect yourself and others. You can ask your local pharmacist how to dispose of them.You can also visit these Web sites to learn more about disposal of controlled substances: ? Drug Enforcement Agency (ANDREA): http://www.deadiversion.CNZZoAmeri-tech 3D.gov/drug_disposal/takeback/index.htm ? National Association of Drug Diversion Investigators (NADDI): http://rxdrugdropbox.org/ ? [place] Office of Drug Control Policy: http://odcp.tn.gov/Prescription+Drug+Drop+Box+Sites.htm Are there concerns about or ? ? Before you take a medicine, tell your doctor if you are or plan to get . This could harm your baby. ? Tell your doctor if you breastfeed. Medicine in breast milk may be bad for your child. What if I have low or impaired vision? If you have vision problems, take extra care with your medicine. ? Wear your glasses when you take your medicine. ? Do not take medicine in the dark. What are the signs of overdose? Some controlled substances may cause breathing problems if you take more than your doctor recommends. This may lead to serious health problems or even . You and your caregivers should watch for the following signs of overdose. ? Slurred speech, confusion or stumbling ? Feeling dizzy or faint ? Acting drowsy or groggy ? Unusual snoring, gasping or snorting during sleep ? Hard to wake up or keep awake What should I or my caregiver do if I overdose? You or your caregiver should call 911 if you have any of these problems: ? Cannot wake up ? Cannot talk after waking up ? Shortness of breath, slow or light breathing, or breathing has stopped ? Heartbeat is slow or stopped ? Gurgling noise comes from the mouth or throat ? Body is limp or seems lifeless ? Face is pale or clammy ? Fingernails or lips look blue or purple What is a HETAL report? HETAL is a system that tracks prescriptions of controlled substances in [place]. The HETAL report tells your doctor if you have been prescribed controlled substances in the past. Doctors must get a HETAL report before prescribing controlled substances. What can I do if the information in my HETAL report is wrong? You or your doctor may contact the dispenser who reported the information to [facility]. If the dispenser agrees that the information should be changed, he or she can fix the [facility] report. However, the dispenser may certify that the report is correct. If that is the case, you or your doctor may then call the [place] Drug Enforcement and Professional Practices Branch at .This will start an investigation of the error. * [facility] - Ashutosh Tamayo RN - 06/08/2025 10:21 AM EDT Images from the original note were not included. 1087 Oxycodone Oral Tablet, Immediate Release Brand Names: Oxaydo, Roxicodone What is this medicine? Oxycodone (tb-l-FXH-done) is an opioid pain reliever. It is used to treat moderate to severe pain. What should I tell my health care provider before I take this medicine? They need to know if you have any of these conditions: ? Ventura's disease ? Brain tumor or head injury ? Personal or family history of drug abuse or addiction ? Heart disease ? Frequent alcohol use ? Kidney disease ? Liver disease ? Lung disease, asthma, or breathing problems ? Depression, anxiety, or other psychiatric disease ? Allergy or unusual reaction to oxycodone, acetaminophen or other pain relievers ? , trying to get , or How should I use this medicine? Take this medicine as prescribed by your doctor, and follow the directions on the prescription label. ? Take this medicine as prescribed by your doctor. Follow the directions on the prescription label. ? Do not take this medicine more often than directed. ? This medicine should be taken with a full glass of water. ? If it upsets your stomach, you may take it with food. You do not have to take this medicine with food. ? Do not crush, cut, chew, lick, wet, soak, or otherwise manipulate a tablet before taking. ? Do not share this medicine with others. This medicine is only for you. ? The pharmacy will give you a special medication guide each time you pickle pumper this medicine. ? Overdosage: Taking too much of this medicine can be deadly. Your doctor may prescribe another medicine with this medicine to treat an accidental overdose. If you think you have taken too much of this medicine, call 911 immediately. What if I miss a dose? If you miss a dose, you may take it as soon as you remember. If it is almost time for your next dose, take only that dose. Do not take double or extra doses. What may interact with this medicine? ? Alcohol ? Medicines for sleep, depression, anxiety, or psychiatric diseases ? Seizure medicines like gabapentin, pregabalin, phenytoin, or phenobarbital ? Other pain medicines like tramadol, hydrocodone, fentanyl, or morphine ? Muscle relaxers ? Certain nausea medicines like chlorpromazine or promethazine ? Cannabinoids like droperidol ? Certain antibiotics like erythromycin, clarithromycin, rifampin, ritonavir, voriconazole, or ketoconazole ? Allergy medicines like diphenhydramine This list may not describe all possible interactions. Give your health care provider a list of all the medicines, herbs, non-prescription drugs, or dietary supplements you use. Also tell them if you smoke, drink alcohol, or use illegal drugs. Some items may interact with your medicine. What should I watch for while using this medicine? ? Before you start taking this medicine, talk with your doctor about how long you should be on thismedicine. You should also talk to your doctor about other things you can do to treat pain, including other medicines or non-drug treatments like meditation or acupuncture. While taking this medicine,tell your doctor if your pain does not go away or gets worse or if you have a new or different typeof pain. ? It is possible you could become dependent on this medicine. The risk of dependence increases the longer you are on the medicine. Dependence is not addiction; however, if you have a personal or family history of addiction, you are at higher risk for becoming addicted to this medicine. Talk to yourdoctor if you are worried about dependence or addiction. ? If you take this medicine for a long time and suddenly stop taking this medicine, you may withdraw from this medicine. Withdrawal from this medicine may cause sweating, pain, diarrhea, anxiety, tremor, and other symptoms. Stopping the medicine slowly can reduce withdrawal symptoms. ? This medicine may cause dizziness or drowsiness, especially when you change doses or first start the medicine. Do not drive, use machinery, or do anything dangerous until you know how your body reacts to this medicine. ? This medicine causes constipation. Unless your doctor tells you not to, you should take a stool softener while on this medicine. Tell your doctor if you have not had a bowel movement in 3 or more days while on this medicine. ? This medicine can also cause dry mouth. Drinking water, chewing gum, or sucking on hard candy canhelp. It is important to keep regular dentist appointments. What side effects may I notice from receiving this medicine? Side effects that you should report to your doctor or health associate director career services as soon as possible: ? allergic reactions like skin rash, itching or hives, swelling of the face, lips, or tongue ? breathing problems ? confusion ? craving for the medicine or withdrawal symptoms with a missed dose ? feeling faint or lightheaded, falls ? trouble passing urine or change in the amount of urine ? unusually weak or tired Side effects that usually do not require medical attention (report to your doctor or health associate director career services if they continue or are bothersome): ? constipation ? dry mouth ? itching ? nausea, vomiting ? upset stomach This list may not describe all possible side effects. Call your doctor for medical advice about side effects. You may report side effects to FDA at 4-404-EJO-8256. Where should I keep my medicine? This medicine should be kept in a locked cabinet away from children and protected from theft. This medicine can be abused. Do not share this medicine with anyone. Selling or giving away this medicineis against the law. Store at room temperature (60-80??F) in a dry place that is protected from light. Do not save unused medicine that is no longer needed. Unused medicine should be taken to a proper disposal location. To find a disposal location, visit [facility]/[place]. If you cannot take unused medicine to a proper location, you can mix the medicine with coffee grounds or kyung litter and dispose of in the normal trash. Your doctor may also give you a special disposal pouch for this medicine. You can also flush the medicine down the toilet. * KraAshutosh Vallejo RN - 06/08/2025 10:21 AM EDT Images from the original note were not included. [id number] Discharge Instructions for Open Hernia Repair You had a procedure called open hernia repair. A hernia is a tear or weakness in the wall of the belly. It causes internal organs to protrude through the wall of muscle or tissue that normally holds it in place. You may be born with this weakness. Or it can be caused by the wear and tear of daily living. Hernias may get worse with time or with physical stress. But surgery can help fix the weakness and stop symptoms. Activity after surgery This advice will help in your recovery: ? After surgery, take it easy for the rest of the day. If you had general anesthesia, don?t use machinery or power tools, drink alcohol, or make any big decisions for at least the first 24 hours. ? Don?t drive while you are still taking opioid pain medicine. Also don?t drive until you are able to step firmly on the brake pedal without hesitation. ? Ask others to help with chores and errands while you recover. ? Don?t lift anything heavier than 10 pounds until your health care provider says it?s okay. ? Don?t mow the lawn, use a vacuum freight car cleaner delta system, or do other strenuous activities until your provider says it?s okay. ? Walk as often as you feel able. ? Continue the coughing and deep breathing exercises that you learned in the hospital. ? Ask your provider when you can expect to go back to work. ? Prevent constipation: o Eat fruits, vegetables, and whole grains. o Drink 6 to 8 glasses of water a day, unless told otherwise. o Use a laxative or a mild stool softener as instructed by your provider. Bandage and incision care Follow these tips: ? Don't get the bandage or wound wet for 48 hours. ? If strips of tape were used to close your incision, don?t pull them off. Let them fall off on their own. ? Take off any gauze bandage in 48 hours. ? Wash your incision with mild soap and water. Pat it dry. Don?t use oils, powders, or lotions on your incision. Don't soak your incision or take tub baths until your health care provider says it's okay. Follow-up care Keep follow-up visits during your recovery. These let your health care provider check your progressand make sure you?re healing well. You may also need to have your stitches, ari, or bandage removed. During office visits, tell your provider if you have any new symptoms. And be sure to ask any questions you have. When to call your doctor Contact your health care provider right away if you have: ? A large amount of swelling or bruising (some testicular swelling and bruising is common). ? Bleeding. ? Increasing pain. ? Increased redness or drainage of the incision. ? A fever of 100.4??F ( 38??C) or higher, or as directed by your provider. ? Chills. ? Trouble urinating. ? Persistent nausea or vomiting. ? A persistent cough. ? Leg swelling. Call 911 if you have any chest pain, shortness of breath, or trouble breathing. Last Reviewed Date: 2024 00:00:00 ?? [id number] [employer]. All rights reserved. This information is not intended as a substitute for professional medical care. Always follow your healthcare professional's instructions. * [facility] Ashutosh Tamayo, RN - 06/08/2025 10:21 AM EDT Images from the original note were not included. [id number] Preventing a Surgical Site Infection A risk of any surgery is an infection at the surgical site. The surgical site is a cut the surgeon makes in the skin to do the surgery. Surgical site infections can range in type. It may be a minor skin infection. Or it may be severe and include tissue under the skin or other organs. In some cases,a severe infection can cause . The information below tells you: ? About surgical site infections. ? What hospitals do to prevent them. ? How they?re treated if they do occur. ? What you can do to prevent an infection. Hand washing reduces the risk of infection. What causes a surgical site infection? Germs are everywhere. They?re on your skin, in the air, and on things you touch. Many germs are good. Some are harmful. Surgical site infections occur when harmful germs enter your body through the incision in your skin. Some infections are caused by germs that are in the air or on objects. But most are caused by germs found on and in your own body. Who is at risk for a surgical site infection? Anyone can have a surgical site infection. Your risk is higher if you: ? Are an older adult. ? Have a weak immune system. ? Have other health conditions such as diabetes. ? Take certain medicines, such as steroids. ? Are a smoker. ? Have certain types of surgery, such as abdominal surgery. ? Have poor nutrition. ? Are very overweight. ? Have a surgery that lasts longer than 2 hours. What are the symptoms of a surgical site infection? An infection often shows up as skin redness, pain, and swelling around the incision that gets worse. Later, a cloudy or greenish-yellow fluid may come from the incision. The fluid may smell bad. The incision may pull apart or open up. You are likely to have a fever and may feel very ill. Symptoms can appear at any time. They may happen from hours to weeks after surgery. Implants such as an artificial knee or hip can become infected at any time after the surgery. How is a surgical site infection treated? ? A surgical site infection is treated with antibiotics. The type of medicine you get will depend on what may be causing the infection. Most serious wound infections need wound care. In some cases, surgery may be needed on the infected wound. ? An infected skin wound may be reopened and cleaned. A deep wound may need to be packed with gauze. The gauze is changed often until the wound starts to heal from the inside out. Your health care provider will decide the best way to treat your infection. ? If an infection occurs where an implant is placed, the implant may be removed. ? If you have an infection deeper in your body, you may need surgery to treat it. What hospitals do to prevent surgical site infections Many hospitals take these steps to help prevent surgical site infections: ? Handwashing. Before the surgery, your surgeon and all surgery staff scrub their hands and arms with an antiseptic soap. ? Clean skin. The site where your incision is made is carefully cleaned with an antiseptic solution. ? Sterile clothing and drapes. The surgical team wears medical uniforms. These are known as scrub suits. They wear long-sleeved surgical gowns, masks, caps, shoe covers, and sterile gloves. Your bodyis fully covered with a large sterile sheet (sterile drape). There is an opening in the sheet wherethe incision is made. ? Clean air. Operating rooms have special air filters. They use positive pressure airflow to prevent unfiltered air from entering the room. ? Careful use of antibiotics. Antibiotics are given no more than 60 minutes before the incision is made. They are generally stopped within 24 hours after surgery. This depends on the type of surgery.This helps kill germs but prevents problems that can occur when antibiotics are taken longer. ? Controlled blood sugar levels. Your blood sugar level may rise. This can be because of the stressof the surgery. Your blood sugar level is watched closely to make sure it stays within a normal range. High blood sugar delays wound healing. This increases the risk of infection. ? Controlled body temperature. A msiny-drob-sqyruh temperature during or after surgery prevents oxygen from reaching the wound. This makes it harder for your body to fight infection. Hospitals may warm I.V. fluids, and provide warm-air blankets. Your temperature is watched throughout the surgery. ? Safe hair removal. Any hair that must be removed is clipped right before the incision, not shavedwith a razor. This prevents tiny nicks and cuts where germs can enter. ? Wound care. After surgery, a closed wound is covered with a sterile dressing for 1 to 2 days. Open wounds are packed with sterile gauze and covered with a sterile dressing. What you can do to prevent a surgical site infection ? Ask questions. Learn what your hospital is doing to prevent infection. ? If instructed, shower or bathe with plain soap the night before and the day of your surgery. Follow all instructions you're given. You may be asked to use a special cleanser that you don?t rinse off. ? If you smoke, stop as long as possible before and after the surgery. Ask your provider about waysto quit. ? Take antibiotics only when your provider tells you to. Using antibiotics when they?re not needed can create germs that are harder to kill. Finish the entire prescription of your antibiotics even ifyou feel better. ? Ask health care workers to clean their hands with plain soap and water or with an alcohol-based hand metal model builder before and after caring for you. Don?t be afraid to remind them. ? After surgery, eat healthy foods. Care for your incision as directed by your health care team. When to contact your doctor Contact your provider or seek medical care right away if: ? The pain at the surgical site gets worse. ? A red streak, worse redness, or puffiness appears near the incision. ? Yellowish, cloudy, or bad-smelling fluid leaks from the incision. ? Your stitches dissolve before the wound heals. ? You have a fever of 100.4?? F ( 38??C ) or higher, or as advised by your provider. ? You have a tired feeling that doesn?t go away. Last Reviewed Date: 2024 00:00:00 ?? [id number] [employer]. All rights reserved. This information is not intended as a substitute for professional medical care. Always follow your healthcare professional's instructions. * [facility] - Ashutosh Tamayo RN - 06/08/2025 10:21 AM EDT Images from the original note were not included. [id number] Discharge Instructions: Caring for Your Abdominal Incision You are going home with stitches, surgical ari, special strips of tape, or surgical skin glue. One of these items was used to close your cut (incision), help stop bleeding, and speed healing. While at home, stay away from anything that may put pressure on your incision including lifting, pushing, or pulling heavy weights. Ask your healthcare provider what activities you need to stay away from. Follow the tips on this sheet to help your incision heal. Home care ? Clean your work area: o Put pets in another room. o Use soap and water to clean the surface you?ll be working on. o Spread a clean cloth or paper towel over the surface. o Move away from the clean surface if you need to cough or sneeze. ? Gather your supplies and put them on the clean work area: o Packaged dressing for your wound o Irrigation solutions (if using these) o Pair of scissors (cleaned with soap and water) o Medical tape o Disposable gloves (2 pairs) o Clean plastic trash bag (open it before you wash your hands) ? Wash your hands: o Use liquid soap. o Work up a good lather and scrub for 1 to 2 minutes. o Be sure to scrub between your fingers and under your nails. o Rinse with warm water, keeping your fingers pointed down. o Use a clean paper towel to dry your hands. Turn off the faucet. ? Prepare your dressing supplies: o Peel back the edges of the dressing packages. Pour any irrigation solutions into solution cups. Don't touch the inside of the cups. o Cut each piece of tape 4 inches longer than the dressing. ? Remove the old dressing: o Put on disposable gloves. o Loosen the tape on the dressing by pulling gently toward the incision. Remove the dressing 1 layer at a time. Put it in the plastic bag right away. o Remove your gloves and put them in the plastic bag. Wash your hands. o Put on a new pair of gloves. ? Clean and dress the incision: o Clean the incision and apply a new dressing as directed. o Don't remove the special strips of tape even if they are starting to loosen. o Put all used supplies in the plastic bag. Remove your gloves last and put them in the plastic bag. Seal the bag and put it in the trash. o Be sure to thoroughly wash your hands again. Care for specific closures Follow these guidelines unless your healthcare provider tells you otherwise: ? Stitches or ari. Once you no longer need to keep these dry, clean the wound daily. Use the directions listed above. First remove the bandage using clean hands. Then wash the area gently with soap and warm water. Use a wet cotton swab to loosen and remove any blood or crust that forms. Use antibiotic ointment only if told to do so by your provider. Then put on a new bandage. ? Skin glue. Don?t put liquid, ointment, or cream on your wound while the glue is in place. Don't do any activities that cause heavy sweating. Protect the wound from sunlight. Don't scratch, rub, or pick at the glue. Don't put tape right over the glue. The glue should peel off in 5 to 10 days. ? Surgical tape. Keep the area dry. If it gets wet, blot the area dry with a clean towel. Surgical tape often falls off in 7 to 10 days. If it has not fallen off after 10 days, contact your healthcare provider before taking it off yourself. If you are told to remove the tape, put mineral oil or petroleum jelly on a cotton ball. Gently rub the tape until it is removed. Follow-up care Follow up with your healthcare provider. Ask how long stitches or ari should be left in place. Go back for suture or staple removal as directed. If tape closures were used, remove them yourself when your provider advises if they have not fallen off on their own. If skin glue was used, the glue will wear off by itself. When to call your healthcare provider Call your healthcare provider right away if you have any of the following: ? More pain, bleeding, redness, swelling, or bad-smelling discharge around the incision area ? Fever of 100.4??F (38??C) or higher, or as directed by your provider ? Shaking chills ? Vomiting or upset stomach that doesn?t go away ? Numbness, coldness, or tingling around the incision area, or changes in skin color. (Numbness around the incision is common. It can last for some time after surgery. Ask your provider if you shouldexpect this.) ? Opening of stitches or wound ? Stitches or ari come apart or fall out or surgical tape falls off before 7 days, or as directed by your provider Last Reviewed Date: 2024 00:00:00 ?? [id number] [employer]. All rights reserved. This information is not intended as a substitute for professional medical care. Always follow your healthcare professional's instructions. * [facility] - Ashutosh Tamayo RN - 06/08/2025 10:21 AM EDT Images from the original note were not included. 27166 Exploratory Laparotomy Exploratory laparotomy is surgery to open up the belly area (abdomen). This surgery is done to findthe cause of problems (such as pain or bleeding) that imaging tests could not diagnose. It's also used when an abdominal injury needs emergency medical care. It might be done to look for the source of an infection in the abdominal space. This surgery uses 1 large cut (incision). The provider can then see and check the organs inside the abdomen. If the cause of the problem is found during the procedure, then treatment is often done at the same time. In some cases, a minimally invasive surgery called exploratory laparoscopy may be used instead. That method uses a tiny camera and several small in cisions. But in many cases, an exploratory laparotomy, in which the abdomen is opened up, is preferred. Read on to learn more about this procedure. This is an example of the kind of incision the surgeon may use to perform exploratory laparotomy. Reasons for the surgery Organs that may be examined during exploratory laparotomy include the: ? Liver. ? Gallbladder. ? Spleen. ? Pancreas. ? Kidneys. ? Stomach. ? Small intestine (small bowel). ? Large intestine (colon or large bowel). ? Appendix. ? Ovaries, fallopian tubes, and uterus (in women). ? Lymph nodes. ? Abdominal blood vessels. ? Membranes that line the abdominal cavity. Getting ready for the surgery The surgery takes place in a hospital. It's done by a surgeon. You will likely stay in the hospitalfor a few days or longer. To get ready for the surgery, do the following: ? Tell your health care provider about any medicines you?re taking. This includes kkac-eps-nuqtjud medicines, prescription medicines, herbs, illegal drugs, vitamins, and other supplements. You may need to stop taking some or all of them for a time before the surgery if this is even possible. Often times an exploratory laparotomy is an emergency. ? Tell your provider if you drink alcohol. This is very important if you are a heavy drinker. Alcohol withdrawal can be life-threatening. So be honest with your provider. ? Also tell your provider if you have any allergies or other health problems. This includes recent illnesses, especially any bleeding problems. ? Stop smoking. Don't smoke on the day of surgery. ? Follow any directions you are given for not eating or drinking before surgery. The day of the surgery ? Many exploratory laparotomy surgical procedures are done on an emergency basis after an injury oraccident. ? You will be assessed for heart, lung, or other problems during surgery. ? You will need to change into a hospital gown. ? Before the surgery begins, an I.V. (intravenous) line is put into a vein in your arm or hand. This line supplies fluids and medicines. ? You will be given medicine (general anesthesia) to keep you free of pain. This medicine puts you in a deep sleep during the surgery. ? A tube will be placed through your mouth and into your throat to help with breathing during the surgery. Also, monitors are attached to your body. These record your vital signs, such as heart rate,oxygen levels, and blood pressure, during the surgery. ? A thin tube (catheter) is placed into your bladder. This tube drains urine from your bladder during the surgery. The tube may be left in place after surgery. During the surgery ? The skin over your belly is cleaned. ? An incision is made in your belly. ? The tissue, blood vessels, and organs in your belly are carefully looked at and checked for problems. ? Tissue samples (biopsy) may be removed and sent to a lab for study. ? If the cause of the problem is found, treatment may be done then, if needed. ? When the surgery is done, the incision is closed with stitches (sutures) or ari. A drain may be placed in the abdomen to remove any extra fluids. After the surgery ? You will be taken to the postanesthesia care unit to be closely kept track of by nurses until youhave recovered from the anesthesia. When you are more awake, alert, and stable, you will be moved to your hospital room. ? Medicines are given to help prevent infection and to manage pain, if needed. ? You may be able to eat and drink quickly, within 1day of surgery, depending on your situation. You may not be given food or drink until your bowels start to work normally again. This may take a fewdays. ? You will need to get up and walk around with help as soon as you are able. This helps to prevent blood clots. ? You may also be given cough and deep breathing exercises to do. These help prevent pneumonia. ? The tube to drain urine may be left in place for a few days or removed after surgery. ? If a drain was used for your incision, this is often removed. before discharge. If not, you will be instructed on how to care for and empty the drain at home. ? You will be able to go home when the health care provider says there are no issues of concern. ? Arrange for an adult family member or friend to drive you home. ? Before leaving, make sure you have all the prescriptions and home care instructions you will need. Also make sure you have a contact number for your provider or the hospital. This is in case you have problems or questions after the surgery. ? Prevent constipation, especially if you were prescribed opioid pain medicines. Take fiber as directed and follow bowel care instructions from your provider. ? Don't lift anything heavier than 5 pounds for about 6 weeks. This gives tissue time to heal, and can prevent a hernia. When to call your doctor After you get home, contact your health care provider if you have: ? Fever of 100.4??F (38??C) or higher, or as advised by your provider. ? Chills. ? Increased pain, redness, swelling, bleeding, or drainage at the incision site. ? Pain that can't be controlled with the medicines prescribed for you. ? Swollen belly. ? Diarrhea or constipation that does not get better in 2 days. ? Bloody or black, tarry stools. ? Problems or pain with urination. ? Chest pain, shortness of breath. (Call 911.) ? Upset stomach (nausea) and vomiting. ? Dizziness or fainting. (Call 911.) ? Leg swelling or pain. Follow-up Recovery time will vary for each person. It may take as long as 4 to 6 weeks. You will need to see your provider for follow-up. This is to remove any stitches or ari and to check your healing progress. Risks and possible complications These vary depending on the reason for the surgery. The most common risks and possible complications include: ? Bleeding. ? Infection. ? Not being able to find the cause of the problem, so more surgery or other treatments may be needed. ? Incision not healing well. ? Damage, injury, or problems with the bowels. ? Risks of reaction to anesthesia. Last Reviewed Date: 2024 00:00:00 ?? 9125-0507 [employer]. All rights reserved. This information is not intended as a substitute for professional medical care. Always follow your healthcare professional's instructions. * [facility] - Ashutosh Tamayo RN - 06/08/2025 10:21 AM EDT Images from the original note were not included. [address] Hernia Repair Surgery A hernia is a weakness or defect in the wall of the belly (abdomen). This causes an internal organ to stick out (protrude) through the wall of muscle or tissue that normally holds it in place. A hernia won't heal on its own. Surgery is needed to fix the defect in the abdominal wall. If not treated,a hernia can get larger. In rare cases, it can also lead to serious health complications. Fortunately hernia surgery can be done quickly and safely. Below is an overview of hernia repair surgery. Getting ready for surgery Your healthcare provider will talk with you about getting ready for surgery. Follow all the instructions you?re given and be sure to: ? Tell your healthcare provider about any medicines, supplements, vitamins, or herbs you take. Thisincludes both prescription and gmgv-rtl-[id number] medicines. Ask if you should stop taking any of them. ? In general, stop taking aspirin, ibuprofen, naproxen, and other nonsteroidal anti-inflammatory drugs (NSAIDs) 3 days before surgery. But if you take aspirin, or other antiplatelet medicines, for a heart condition or a past stroke, talk with your providers before stopping. ? Arrange for an adult family member or friend to give you a ride home after surgery. ? Stop smoking. Smoking affects blood flow and can slow healing. Smoking can make you more likely to have complications from anesthesia and the surgery. ? Gently wash the surgical area the night before surgery. You may be given a special scrub to use. ? Follow any directions you're given for not eating or drinking before surgery. The day of surgery Arrive at the hospital or surgical center at your scheduled time. You?ll be asked to change into a patient gown. You?ll then be given an IV (intravenous) line for fluids and medicine. Shortly before surgery, an anesthesiologist or nurse masking machine operator will talk with you. They'll explain the types of anesthesia used to prevent pain during surgery. You'll have 1 or more of the following: ? Monitored sedation to make you relaxed and sleepy. ? Local anesthesia to numb the surgical site. ? Regional anesthesia to numb certain areas of your body. ? General anesthesia to let you sleep during surgery. Fixing the weakness Surgery treats a hernia by repairing the weakness in the abdominal wall. Most hernias are treated using tension-free repairs. This is surgery that uses special mesh materials to repair the weak area.The mesh covers the weak area like a patch. The mesh is made of strong, flexible plastic that staysin the body. Over time, nearby tissues grow into the mesh to strengthen the repair. After surgery When the procedure is over, you?ll be taken to the PACU (post anesthesia care unit) to be watched. Your blood pressure, breathing, and heart rate will be monitored. You?ll also have some type of bandage over the surgical site. To help reduce discomfort, you?ll be given pain medicines as needed. Youmay also be given breathing exercises to keep your lungs clear. Later you?ll be asked to get up andwalk. This helps prevent blood clots in the legs. You can go home when your healthcare provider says you?re ready. Risks and possible complications of hernia surgery ? Bleeding ? Infection ? Numbness or pain in the groin or leg ? Risk the hernia will recur ? Damage to the testicles or testicular function ? Anesthesia risks ? Mesh complications ? Inability to pee ? Bowel or bladder injury Last Reviewed Date: 2023 00:00:00 ?? [id number] [employer]. All rights reserved. This information is not intended as a substitute for professional medical care. Always follow your healthcare professional's instructions. * Discharge Summary - Mayda Chand APRN - 06/08/2025 10:08 AM EDT Hospitalization Admit Date/Time: 06/07/2025 9:44 AM Admitting Attending: Anais Easton Discharge Date: 06/08/2025 Discharge Attending Physician: Anais Easton MD PCP name and Address: Marilin Langley PA [address] [place] [id number] Referring provider name and address: No referring provider defined for this encounter. Chief Concern, Brief History of Present Illness, and Hospital Course Brandon Barfield is a 40 y.o. male with past medical history ventral hernia repair with mesh x 2 c/b persistent mesh infection presenting with exploratory laparotomy, mesh excision, and repair of incisional hernia. He continues to have intermittent drainage from his midline incision. Denies personal history of HTN, T2DM, DVT, PE, CT, Stroke, or issues with anesthesia. Denies personal use of ASA or blood thinners. Quit vaping 1.5 weeks ago. Taken from admission H&P. Diagnosis(es): infected hernioplasty mesh Surgery: 06/07 exploratory laparotomy, mesh excision Post-operatively they did well. At time of discharge they were tolerating PO intake and pain was under control. Follow up with [facility] with 2 week-you will called with a day/time Follow up with PCP within one week after discharge for post hospitalization visit. At the time of discharge the patient was hemodynamically stable, tolerating PO, voiding spontaneously, normal bowel function, mobilizing appropriately, with their pain controlled with PO medication. At this time, the patient has obtained the maximum benefit from the present hospital stay, and so will be discharged to home Management of diabetes and hypertension not part of routine post op care Surgeries and Procedures LAPAROTOMY, EXPLORATORY (N/A), IRRIGATION AND DEBRIDEMENT, ABDOMEN (N/A), REPAIR, HERNIA, INCISIONAL (N/A) Medication List .. acetaminophen 500 MG tablet Commonly known as: Tylenol Take 2 tablets by mouth every 6 hours. atomoxetine 100 MG capsule Commonly known as: Strattera Take 1 capsule by mouth daily. DSS 100 MG capsule Take 100 mg by mouth 2 times a day. emtricitabine-tenofovir disoproxil fumarate 200-300 MG tablet Commonly known as: Truvada Take 1 tablet by mouth daily. famotidine 20 MG tablet Commonly known as: Pepcid Take 1 tablet by mouth Daily. fluticasone 50 MCG/ACT nasal spray Commonly known as: Flonase 1 spray per nostril every day as needed allergies magnesium oxide 400 (240 Mg) MG tablet Commonly known as: Mag-Ox Melatonin 5 MG tablet tablet take 1-2 tab every night as needed insomnia methocarbamol 750 MG tablet Commonly known as: Robaxin Take 1 tablet by mouth every 8 hours. Mucus Relief 600 MG 12 hr tablet Generic drug: guaiFENesin take 1 tab 2 times a day as needed cough/congestion Multivitamin tablet Take 1 tablet by mouth daily. mupirocin 2 % ointment Commonly known as: Bactroban Apply small amount into each nostril twice daily starting 5 days before surgery. naloxone 4 mg/0.1 mL nasal spray Commonly known as: Narcan 1. Give 1 spray in nostril for no/slow breathing or cannot wake after opioid use 2. Call 911 3. Repeat in other nostril if symptoms continue omeprazole [address] capsule Commonly known as: PriLOSEC daily. ondansetron ODT 4 MG disintegrating tablet Commonly known as: Zofran-ODT Dissolve 1 tablet on the tongue every 6 hours as needed for nausea or vomiting. oxyCODONE 5 MG immediate release tablet Commonly known as: Roxicodone Take 1 tablet by mouth every 4 hours as needed for moderate pain. May take up to 2 tablets (10 mg total) by mouth every 4 (four) hours as needed for pain traZODone 50 MG tablet Commonly known as: Desyrel take 1/2 tab - 1 tab every night Where to Get Your Medications These medications were sent to [facility] - [place], [place] - [address] [facility] [id number] acetaminophen 500 MG tablet DSS 100 MG capsule methocarbamol 750 MG tablet naloxone 4 mg/0.1 mL nasal spray ondansetron ODT 4 MG disintegrating tablet oxyCODONE 5 MG immediate release tablet Discharge Diagnosis Medical Problems Active and Resolved Hospital Problems Hospital * (Principal) Infected hernioplasty mesh ([facility]) Infected hernioplasty mesh, initial encounter ([facility]) Discharge Instructions: Precautions: - You have received sedation/anesthesia today. You may not drive, drink alcohol, or do anything that requires a clear head for the next 24 hours. Medications: - You should take Tylenol every 6 hours for pain -You should take methocarbamol 4 times per day for muscle spasms. - You have been prescribed pain medications to be taken as needed for severe pain. Do NOT take any home prescribed narcotics while taking the ones prescribed at discharge. - You should take the stool softener prescribed as long as you are taking narcotics. - You may resume your previous medications unless otherwise instructed. Nutrition: - You may resume your normal diet as tolerated, focusing on liquids to keep yourself hydrated. Activity: - Walking and climbing stairs is ok and encouraged. You should refrain from any strenuous activity/exercise until your follow up appointment. - No lifting anything >5-10lbs for the next 6 weeks. - You may not drive for 48 hours after surgery, or while taking narcotics. - Activity as tolerated. Dressing: - You may remove existing incision cover and replace with new clean one prior to discharge - It is normal to have some drainage from your incision. This typically is a clear, straw, pink, orclear red color. You may cover your incision with clean gauze and tape from your local pharmacy; you should change this gauze daily, most commonly after you have showered. Rarely a tail from the suture may poke out. This is ok and non-hazardous. This suture will dissolve on its own over time, but if this suture end is bothersome, the end may be trimmed with a small pair of scissors. Please do notattempt to pull the suture out. - Underneath your dressing you have steri strips across your incision. Do not pick them off, they will fall off on their own after approximately 2 weeks. - You may shower. Let the soapy water run over your incisions. Do not scrub at your incisions. After you shower, pat your incisions dry with a clean towel. - You have ari across your incision. These will be removed in clinic at your follow up appointment. - Please contact the clinic if your skin begins to separate or if you notice drainage from the incision that is purulent or foul smelling. Potential Issues: - It is normal to have some pain and soreness, especially around the incisions - A small amount of clear drainage from the incision may be expected, call the office if the drainage becomes bloody, purulent (pus), or foul-smelling - Call the office if you start to have increased redness, drainage, swelling, or increased pain around your incision - Call the office if you have a fever greater than 101 F - Call the office if you have severe abdominal discomfort, nausea and vomiting, or feeling unwell Follow Up: -You will be scheduled to follow up with Jose Garcia or Dr Easton for post op/staple removal. You will be called with a time. Questions or Concerns and Appointments If there are questions or concerns after discharge from the hospital, call Jimena Suero, Nurse Coordinator between 7am-3pm at [phone]. If it is after hours, weekends, and holidays please call [phone] and ask for the resident contract loader for Emergency General Surgery. For appointments please call our General Surgery Clinic at [phone]. Medication requests should be made between the hours of 9:00 AM to 3:00 PM Tuesday thru Tuesday. Please note that based upon recent changes to [place] law related to prescribing opioid pain medications, our providers will not provide refills on controlled medications after your hospital discharge following a major surgery or trauma. [place] 201 KAR9:260. Outpatient Follow-Up Future Appointments Date Time Provider Department Center 06/20/2025 11:00 AM Douglas Sanders PA [id number] [place] Test Results Pending At Discharge Pending Labs Order Current Status Surgical Pathology Exam In process Pertinent Physical Exam At Time of Discharge Physical Exam Vitals reviewed. Constitutional: Appearance: Normal appearance. Pulmonary: Effort: Pulmonary effort is normal. No respiratory distress. Abdominal: Palpations: Abdomen is soft. Comments: ML ari well approximated, old blood on bandage. No new drainage or erythema Skin: General: Skin is warm and dry. Neurological: General: No focal deficit present. Mental Status: He is alert and oriented to person, place, and time. Psychiatric: Mood and Affect: Mood normal. Discharge Disposition/Condition Disposition: Home Condition: Stable (s/sx potential problems absent or manageable) I spent >30 minutes of patient care and instruction time in preparation for this discharge. Cosigned by Anais Easton MD at 06/10/2025 4:23 PM EDT * Hospital Course - Mayda Chand APRN - 06/08/2025 10:04 AM EDT Brandon Barfield is a 40 y.o. male with past medical history ventral hernia repair with mesh x 2 c/b persistent mesh infection presenting with exploratory laparotomy, mesh excision, and repair of incisional hernia. He continues to have intermittent drainage from his midline incision. Denies personal history of HTN, T2DM, DVT, PE, CT, Stroke, or issues with anesthesia. Denies personal use of ASA or blood thinners. Quit vaping 1.5 weeks ago. Taken from admission H&P. Diagnosis(es): infected hernioplasty mesh Surgery: 06/07 exploratory laparotomy, mesh excision Post-operatively they did well. At time of discharge they were tolerating PO intake and pain was under control. Follow up [facility] with 2 week-you will called with a day/time Follow up with PCP within one week after discharge for post hospitalization visit. At the time of discharge the patient was hemodynamically stable, tolerating PO, voiding spontaneously, normal bowel function, mobilizing appropriately, with their pain controlled with PO medication. At this time, the patient has obtained the maximum benefit from the present hospital stay, and so will be discharged to home Management of diabetes and hypertension not part of routine post op care * Care Plan - Annie Farris - 06/08/2025 12:00 AM EDT Problem: Adult Inpatient Plan of Care Goal: Plan of Care Review Outcome: Ongoing, Progressing Flowsheets (Taken 06/08/2025) Progress: improving Outcome Evaluation: Patient is noted to have pain and heartburn managed with pharmacological and non pharmacological methods to include time to allow for rest periods Plan of Care Reviewed With: patient Goal: Patient-Specific Goal (Individualized) Outcome: Ongoing, Progressing Goal: Absence of Hospital-Acquired Illness or Injury Outcome: Ongoing, Progressing Intervention: Identify and Manage Fall Risk Flowsheets (Taken 06/08/2025) Safety Promotion/Fall Prevention: activity supervised assistive device/personal items within reach clutter-free environment maintained lighting adjusted nonskid shoes/slippers when out of bed room organization consistent safety round/check completed Intervention: Prevent Skin Injury Flowsheets (Taken 06/08/2025) Skin Protection: silicone foam dressing in place Intervention: Prevent Infection Flowsheets (Taken 06/07/20251999) Infection Prevention: hand hygiene promoted rest/sleep promoted Goal: Optimal Comfort and Wellbeing Outcome: Ongoing, Progressing Intervention: Provide Person-Centered Care Flowsheets (Taken 06/07/20251999) Trust Relationship/Rapport: care explained choices provided emotional support provided empathic listening provided questions answered reassurance provided thoughts/feelings acknowledged questions encouraged * Post-Procedure Note - Martha Gay MD - 06/07/2025 7:37 PM EDT Patient seen and examined post-operatively. Pt endorses abdominal pain that is moderately well controlled. He denies nausea, headache, lightheadedness, dizziness, chest pain and shortness of breath. No other complaints or concerns at this time. No intake/output data recorded. Intake/Output Summary (Last 24 hours) at 06/07/20252036 Last data filed at 06/07/2025 1800 Gross per 24 hour Intake 1800 ml Output 225 ml Net 1575 ml Visit Vitals BP 110/70 (BP Location: Right arm, Patient Position: Lying) Pulse 71 Temp 36.4 ??C (97.5 ??F) (Oral) Resp 18 Physical Exam Vitals reviewed. Constitutional: General: He is not in acute distress. HENT: Head: Normocephalic. Mouth/Throat: Mouth: Mucous membranes are moist. Eyes: Extraocular Movements: Extraocular movements intact. Conjunctiva/sclera: Conjunctivae normal. Cardiovascular: Rate and Rhythm: Normal rate. Pulmonary: Effort: Pulmonary effort is normal. No respiratory distress. Abdominal: General: There is no distension. Palpations: Abdomen is soft. Tenderness: There is abdominal tenderness. There is no guarding or rebound. Comments: Appropriately tender to palpation. Incisions covered with Covaderm, moderate strikethrough. Skin: General: Skin is warm. Capillary Refill: Capillary refill takes less than 2 seconds. Neurological: General: No focal deficit present. Mental Status: He is alert and oriented to person, place, and time. Mental status is at baseline. Psychiatric: Mood and Affect: Mood normal. Behavior: Behavior normal. Plan: -[facility] -Regular diet -AM labs Martha Gay MD PGY-1 Pager: [phone] Epic chat preferred for non-emergent communication.' * Anesthesia PACU Signout - Halima Martinez DO - 06/07/2025 4:42 PM EDT Patient: Brandon Barfield Anesthesia Type: general Vitals Value Taken Time BP 122/76 06/07/25 16:30 Temp 36.4 ??C (97.5 ??F) 06/07/25 15:10 Pulse 76 06/07/25 16:41 Resp 17 06/07/25 16:41 SpO2 94 % 06/07/25 16:41 Vitals shown include unfiled device data. Anesthesia PACU Signout Patient location during evaluation: PACU Patient participation: complete - patient participated Level of consciousness: baseline and awake Pain management: adequate (pain score 0-3) Airway patency: natural airway Hydration status: acceptable PONV: none Cardiovascular status: acceptable and hemodynamically stable Respiratory status: acceptable, spontaneous ventilation, unassisted, nonlabored ventilation and nasal cannula Discharge Disposition: admit to inpatient unit Comments: Patient is s/p Procedure(s) and Anesthesia Type: * LAPAROTOMY, EXPLORATORY - General * IRRIGATION AND DEBRIDEMENT, ABDOMEN - General * REPAIR, HERNIA, INCISIONAL - General. Patient remains HDS on 3L NC, neurologically appropriate, pain is controlled, and tolerating PO w/oN/V. Patient is appropriate for discharge from PACU to inpatient unit for continued postop care. Cosigned by Josh Dias MD at 06/07/2025 6:19 PM EDT Associated attestation - Josh Dias MD - 06/07/2025 6:19 PM EDT Agree with above assessment and evaluation from resident/TAPPET ADJUSTER. * Op Note - Anais Easton MD - 06/07/2025 1:23 PM EDT Operative Note Date: 06/07/25 Location: [facility] Name: Brandon Barfield : 1985, Diagnoses: Pre-op Diagnosis Infected hernioplasty mesh, initial encounter ([facility]) Post-op Diagnosis Infected hernioplasty mesh, initial encounter ([facility]) Procedure(s): Exploratory laparotomy Debridement abdominal wall Resection infected hernioplasty mesh Primary hernia repair, 25 cm x 4 cm Attending Surgeon(s): * Anais Easton - Primary Acid Purification Equipment Operator(s): * Pradeep Sanders MD - Resident - Assisting * Luisa Ghotra MD - Resident - Assisting Anesthesia: General ASA: II Blood Administration: Blood Product Administration History None Estimated Blood Loss: Minimal Drains: [REMOVED] Urethral Catheter Non-latex;Single lumen;Temperature probe 16 Fr. (Removed) Output (mL) 0 mL 06/07/251999 Specimen: Specimens ID Source Frozen? 1 Other (specify site) No Description: intraabdominal mass 2 Other (specify site) No Description: explanted abdominal mesh 3 Other (specify site) No Description: posterior rectus sheath Findings: Sinus tract from upper midline to right lateral abdomen with pus. Upper midline retrorectus mesh removed with evidence of purulent drainage. Lower midline with adherent intraabdominal necrotic fat removed. Primary closure of midline fascia. Packing into right lateral abdominal sinus tract. Indications: Brandon Barfield is an 40 y.o. male who is having surgery for Infected hernioplasty mesh, initial encounter ([facility]). Narrative: After obtaining informed consent the patient was taken to the operating room and placed supine on the operating room table. SCDs were placed on bilateral lower extremities and general anesthesia was induced.Time-out was performed to assure correct patient and procedure. The abdomen was prepped and draped in the usual sterile fashion. A midline incision was made with a scalpel through his prior midline incision. Dissection was carried out down to the fascia using electrocautery. We then entered the anterior fascia using electrocautery. There was a fistula tract from the underlying mesh to the skin along the upper midline. Additionally, there was a tract from the upper midline incision to the right lateral abdomen with purulentdrainage. There was a 15cm x 15cm mesh within the rectorectus space along the supraumbilical midline incision with evidence of purulent drainage within this space. Infection was present at time of surgery. Using blunt dissection, this mesh easily was removed given surrounding purulent drainage and then sent to pathology. The cavity with the mesh was thoroughly irrigated. There was a large cavity with surrounding rind. The cavity and the fistulous tracts were explored and thoroughly debrided using currettes. Bovie cautery was used to roughen the surfaces and eventually obliterate the spaces. The right superior posterior fascia sheath inferior to the mesh was discolored and a strip of fascial about 2 cm x 5 cm was resected given concern for viability. The fascial planes were not well delineated along the inferior aspect of the incision and the abdomen was entered to further evaluate foradditional mesh. There were omental attachments to the the midline incision which were taken down using electrocautery. There were two densely adherent firm massed to the intraabdominal wall along the inferior midline incision. These were resected using electrocautery and sent to pathology, unclearif additional mesh or incarcerated/calcified omentum. Unable to clearly delineate the mesh along lower abdomen so mesh was felt to be well incorporated within the fascia and there was no evidence of infection in this area. Given several liters of irrigation throughout the abdomen and hemostasis wasachieved. The fascia was closed with a running 1-0 PDS suture and skin was approximated using ari. The right lateral fistula tract was packed with nugauze. There were no immediate complications. The patient tolerated procedure well and was transferred to the recovery room in stable condition. All counts were correct at case conclusion. Dr. Easton was present and scrubbed for the entirety of the procedure. At the time of surgery, the following signs of infection were present: jasper purulence. Complications: None; patient tolerated the procedure well. Submitted by: Luisa Ghotra MD - 06/10/2025 I was present for the entirety of the procedure(s). Anais Easton MD * Brief Op Note - Pradeep Sanders MD - 06/07/2025 1:23 PM EDT Date: 06/07/25 Location: [facility] Name: Brandon Barfield DOB: 1985, Diagnoses: Pre-op Diagnosis Infected hernioplasty mesh, initial encounter (CMS/HCC) Post-op Diagnosis Infected hernioplasty mesh, initial encounter (CMS/HCC) Procedure(s): Exploratory laparotomy Mesh explant Fascial closure Attending Surgeon(s): * Anais Easton - Primary Acid Purification Equipment Operator(s): * Pradeep Sanders MD - Resident - Assisting * Luisa Ghotra MD - Resident - Assisting Anesthesia: General ASA: II Blood Administration: Blood Product Administration History None Estimated Blood Loss: 100ml Drains: [REMOVED] Urethral Catheter Non-latex;Single lumen;Temperature probe 16 Fr. (Removed) Specimen: Specimens ID Source Frozen? 1 Other (specify site) No Description: intraabdominal mass 2 Other (specify site) No Description: explanted abdominal mesh 3 Other (specify site) No Description: posterior rectus sheath Findings: 2 sinus tracts to infected hernia mesh Additional abdominal mass resected and sent for pathology Sinus tracts obliterated, portion of the posterior rectus sheath resected as well Complications: None; patient tolerated the procedure well. Submitted by: Pradeep Sanders MD - 06/07/2025 Cosigned by Anais Easton MD at 06/10/2025 11:18 PM EDT * Brief Op Note - Luisa Ghotra MD - 06/07/2025 1:23 PM EDT Date: 06/07/25 Location: [facility] Name: Brandon Barfield, : 1985, Diagnoses: Pre-op Diagnosis Infected hernioplasty mesh, initial encounter (CMS/HCC) Post-op Diagnosis Infected hernioplasty mesh, initial encounter (CMS/HCC) Procedure(s): Exploratory laparotomy, mesh excision Attending Surgeon(s): * Anais Easton - Primary Acid Purification Equipment Operator(s): * Pradeep Sanders MD - Resident - Assisting * Luisa Ghotra MD - Resident - Assisting Anesthesia: General ASA: II Blood Administration: Blood Product Administration History None Estimated Blood Loss: Minimal Drains: [REMOVED] Urethral Catheter Non-latex;Single lumen;Temperature probe 16 Fr. (Removed) Specimen: Specimens ID Source Frozen? 1 Other (specify site) No Description: intraabdominal mass 2 Other (specify site) No Description: explanted abdominal mesh 3 Other (specify site) No Description: posterior rectus sheath Findings: Sinus tract from upper midline to right lateral abdomen with pus. Upper midline retrorectus mesh removed with evidence of purulent drainage. Lower midline with adherent intraabdominal necrotic fat removed. Primary closure of midline fascia. Packing into right lateral abdominal sinus tract. Complications: None; patient tolerated the procedure well. Submitted by: Luisa Ghotra MD - 06/07/2025 Cosigned by Anais Easton MD at 06/10/2025 11:18 PM EDT * H&P - Luisa Ghotra MD - 06/07/2025 11:59 AM EDT Images from the original note were not included. Subjective History Of Present Illness Brandon Barfield is a 40 y.o. male with past medical history ventral hernia repair with mesh x 2 c/b persistent mesh infection presenting with exploratory laparotomy, mesh excision, and repair of incisional hernia. He continues to have intermittent drainage from his midline incision. Denies personal history of HTN, T2DM, DVT, PE, CT, Stroke, or issues with anesthesia. Denies personal use of ASA or blood thinners. Quit vaping 1.5 weeks ago. Medical/Surgical/Social/Family History I have reviewed and updated the patient history. Travel History Relevant International Travel History: Travel Screening Question Response Have you been in contact with someone who was sick? No / Unsure Do you have any of the following new or worsening symptoms? None of these Have you traveled internationally or domestically in the last month? No Travel History Travel since 05/08/25 No documented travel since 05/08/25 Relevant Domestic Travel History: N/A Immunizations Not reviewed Allergies Patient has no known allergies. Medications Current Medications[1] Objective Review of Systems All other systems reviewed and are negative. Physical Exam Constitutional: Appearance: He is not ill-appearing. Eyes: Pupils: Pupils are equal, round, and reactive to light. Cardiovascular: Rate and Rhythm: Normal rate. Pulmonary: Effort: Pulmonary effort is normal. No respiratory distress. Abdominal: General: Abdomen is flat. There is no distension. Palpations: Abdomen is soft. Tenderness: There is no abdominal tenderness. Comments: Midline incision with area of drainage upper midline Skin: General: Skin is warm. Capillary Refill: Capillary refill takes less than 2 seconds. Neurological: General: No focal deficit present. Mental Status: He is alert. Mental status is at baseline. Psychiatric: Mood and Affect: Mood normal. Last Recorded Vitals Blood pressure 124/80, pulse 70, temperature 37 ??C (98.6 ??F), temperature source Oral, resp. rate16, weight 96.9 kg (213 lb 10 oz), SpO2 100%. Results Review I have reviewed the latest lab and imaging results. Assessment & Plan Infected hernioplasty mesh (CMS/[facility]) Infected hernioplasty mesh, initial encounter ([facility]) Mr. Barfield is a 40M presenting for exploratory laparotomy, mesh excision, ventral hernia repair. Consent obtained. Luisa Ghotra MD General Surgery PGY3 Pager: [phone] [1] Current Facility-Administered Medications Medication Dose Route Frequency Provider Last Rate Last Admin heparin (porcine) injection 5,000 Units 5,000 Units Subcutaneous q8h [facility] Anais Easton MD 5,000 Units at 06/07/25 1152 sodium chloride 0.9 % flush 10 mL 10 mL Intravenous q12h Anais Easton MD 10 mL at 152 And sodium chloride 0.9 % flush 10 mL 10 mL Intravenous PRN Anais Easton MD Cosigned by Anais Easton MD at 06/14/2025 8:16 PM EDT Associated attestation - Anais Easton MD - 06/14/2025 8:16 PM EDT I saw and evaluated the patient with the resident/fellow. I discussed the case with the resident/fellow and agree with the findings and plan as documented. documented in this encounter Plan of Treatment Upcoming Encounters Date Type Department Care Team (Late st Contact Info) Description 06/20/2025 11:00 AM EST Office Visit [facility] [address] [place] [address] Douglas Sanders, AMANDA [address] [place] [address] 06/25/2025 11:30 AM EST Office Visit [facility] General Surgery [address] [place] [id number] Dominique Garcia, JAMAR [address] [place] [id number] Scheduled Orders Name Type Priority Associated Diagnoses Orde r Schedule Multi Drug Resistance Test Microbiology Routine Once (Lab) for 1 Occurrences starting 06/08/2025 until 06/08/2025 documented as of this encounter Procedures Procedure Name Priority Date/Time Associated Diagnosis Comments CBC W/O DIFFERENTIAL Routine 06/08/2025 4:48 AM EDT PHOSPHORUS, PLASMA Routine 06/08/2025 4: 48 AM EDT MAGNESIUM, PLASMA Routine 06/08/2025 4:4 8 AM EDT BASIC METABOLIC PANEL, PLASMA Routine 06/08/2025 4:48 AM EDT SURGICAL PATHOLOGY EXAM Routine 06/07/2025 2:04 PM EDT Infected hernioplasty mesh, initial encounter (CMS/HCC) OR RPR AA HERNIA 1ST 3-10 CM REDUCIBLE 06/07/2025 12:20 PM EDT Infected hernioplasty mesh, initial encounter (CMS/HCC) OR DEBRIDEMENT, SKIN, SUB-Q TISSUE,=<20 SQ CM 06/07/2025 12:20 PM EDT Infected hernioplasty mesh, initial encounter (CMS/HCC) OR EXPLORATORY OF ABDOMEN 06/07/2025 12:20 PM EDT Infected hernioplasty mesh, initial encounter ([facility]) TYPE AND SCREEN Routine 06/07/2025 11:48 AM EDT POCT GLUCOSE METER UNSOLICITED RESULTS Routine 06/07/2025 11:46 AM EDT documented in this encounter Results * Phosphorus (06/08/2025 4:48 AM EDT) Phosphorus, Plasma 4.5 2.5 - 4.5 mg/dL 06/08/2025 5:29 AM EDT [facility] Blood Venous blood specimen / Unknown Venipuncture / Unknown 06/08/2025 4:48 AM EDT 06/08/2025 4:57 AM EDT us Anais Easton MD LAB BLOOD ORDERABLES Rebecca l Result Performing Organization Address City/[facility]/ZIP Co de Phone Number [facility] [address] [place] [address] * Magnesium (06/08/2025 4:48 AM EDT) Magnesium, Plasma 2.0 1.9 - 2.4 mg/dL 06/08/2025 5:29 AM EDT [facility] Blood Venous blood specimen / Unknown Venipuncture / Unknown 06/08/2025 4:48 AM EDT 06/08/2025 4:57 AM EDT us Anais Easton MD LAB BLOOD ORDERABLES Rebecca l Result [facility] [address] [place] [address] * (ABNORMAL) Basic Metabolic Panel (06/08/2025 4:48 AM EDT) Glucose, Plasma 105(H) 74 - 99 mg/dL 06/08/2025 5:29 AM EDT [facility] BUN, Plasma 9 7 - 21 mg/dL 06/08/2025 5:29 AM EDT [facility] Creatinine, Plasma 0.72 0.70 - 1.20 mg/dL 06/08/2025 5:29 AM EDT [facility] BUN/Creatinine Ratio 13 06/08/2025 5:29 AM EDT [facility] Sodium, Plasma 140 136 - 145 mmol/L 06/08/2025 5:29 AM EDT [facility] Potassium, Plasma 5.1(H) 3.6 - 4.9 mmol/L 06/08/2025 5:29 AM EDT [facility] Chloride, Plasma 104 97 - 107 mmol/L 06/08/2025 5:29 AM EDT [facility] CO2, Plasma 27 22 - 29 mmol/L 06/08/2025 5:29 AM EDT [facility] Anion Gap 9 6 - 16 mmol/L 06/08/2025 5:29 AM EDT [facility] Total Calcium, Plasma 8.6(L) 8.9 - 10.2 mg/dL 06/08/2025 5:29 AM EDT [facility] eGFRcr 117.7 mL/min/1.7 3m*2 06/08/2025 5:29 AM EDT [facility] Comment:Reported eGFRcr in m L/min/1.73m2 is based the CKD-EPI 2020 equation that does not use a race coefficient. Blood Venous blood specimen / Unknown Venipuncture / Unknown 06/08/2025 4:48 AM EDT 06/08/2025 4:57 AM EDT us Anais Easton MD LAB BLOOD ORDERABLES Rebecca gordon Result [facility] [address] [place] [address] * (ABNORMAL) CBC (06/08/2025 4:48 AM EDT) WBC Count 12.30(H) 3.70 - 10.30 10*3/uL LAB HEMATOLOGY METHOD 06/08/2025 5:05 AM EDT [facility] RBC Count 4.58(L) 4.60 - 6.10 10*6/uL LAB HEMATOLOGY METHOD 06/08/2025 5:05 AM EDT [facility] HGB 14.1 13.7 - 17.5 g/dL LAB HEMATOLOGY METHOD 06/08/2025 5:05 AM EDT [facility] HCT 40.7 40.0 - 51.0 % LAB HEMATOLOGY METHOD 06/08/2025 5:05 AM EDT [facility] Platelet Count 291 155 - 369 10*3/uL LAB HEMATOLOGY METHOD 06/08/2025 5:05 AM EDT [facility] MCV 89 79 - 98 fL LAB HEMATOLOGY METHOD 06/08/2025 5:05 AM EDT [facility] MCH 30.8 26.0 - 32.0 pg LAB HEMATOLOGY METHOD 06/08/2025 5:05 AM EDT [facility] MCHC 34.6 30.7 - 35.5 g/dL LAB HEMATOLOGY METHOD 06/08/2025 5:05 AM EDT [facility] RDW 13.1 11.5 - 14.5 % LAB HEMATOLOGY METHOD 06/08/2025 5:05 AM EDT [facility] MPV 9.3 8.8 - 12.5 fL LAB HEMATOLOGY METHOD 06/08/2025 5:05 AM EDT [facility] nRBC 0.0 <=0.0 per 100 WBCs LAB HEMATOLOGY METHOD 06/08/2025 5:05 AM EDT [facility] Blood Venous blood specimen / Unknown Venipuncture / Unknown 06/08/2025 4:48 AM EDT 06/08/2025 4:57 AM EDT us Anais Easton MD LAB BLOOD ORDERABLES Rebecca gordon Result [facility] [address] [place] [address] * Surgical Pathology Exam (06/07/2025 2:04 PM EDT) Case Report Surgical Pathology Case: [id number] Authorizing Provider: Anais Easton MD Collected: 06/07/2025 1404 Ordering Location: [facility] Received: 06/07/2025 1525 Pathologist: Heidy Lowe MD Specimens: A) - Other (specify site), intraabdominal mass B) - Other (specify site), explanted abdominal mesh C) - Other (specify site), posterior rectus sheath 10:44 AM EDT [facility] Final Diagnosis A. INTRAABDOMINAL MASS, DEBRIDEMENT: - FIBROADIPOSE TISSUE WITH CHRONIC INFLAMMATION, FIBROSIS, FAT NECROSIS, AND DYSTROPHIC CALCIFICATION. - FOCAL GRANULOMATOUS INFLAMMATION; GMS/AFB STAINS NEGATIVE FOR ORGANISMS. - NEGATIVE FOR MALIGNANCY. B. EXPLANTED ABDOMINAL MESH, REMOVAL: - EXPLANTED MESH MATERIAL FOR GROSS DIAGNOSIS ONLY. C. POSTERIOR RECTUS SHEATH, DEBRIDEMENT: - CHRONIC INFLAMMATION, FIBROSIS, AND FAT NECROSIS. - NEGATIVE FOR MALIGNANCY. 10:44 AM EDT [facility] at 1044 EDT Clinical Information Infected hernioplasty mesh, initial encounter ([facility]) [T85.79XA] 10:44 AM EDT [facility] Special and Immunohistochemical Stains Special Stain: A2-2 GMS : Negative A2-3 Acid Fast Bacteria : Negative All controls show appropriate reactivity. All immunohistochemis try, in situ hybridization, and histochemical tests were developed by and are performed at the [facility], [address] [place] [address]. All tests reported here, except those addressing HER2 (breast) and PD-L1 expression as predictive markers, have not been cleared by or approved by the US Food and Drug Administration (FDA). The FDA has determined that such clearance or approval is not necessary. The laboratory is regulated under CLIA as qualified to perform high-complexity testing. The tests are used for clinical purposes. They should not be regarded as investigational or for research. This assay has not been validated on decalcified tissues. Results should be interpreted with caution given the likelihood of false negativity on decalcified specimens. 10:44 AM EDT [facility] Gross Description A. INTRAABDOMINAL MASS Received fresh and subsequently placed in formalin labeled intra-abdominal mass is a portion of red-pink to yellow-sharp soft and slightly fibrous tissue measuring 2.7 x 2.7 x 1.0 cm. The specimen is serially sectioned and help desk representative sections are submitted in cassettes A1-A2. Cold Time: 1h 21m Floridalma Valencia B. EXPLANTED ABDOMINAL MESH Received fresh and subsequently placed in formalin labeled explant abdominal mesh is a portion of translucent pliable fabric like mesh with attached red-pink soft tissue measuring 14.5 x 9.4 x 0.3 cm. Specimen submitted for gross only examination. Floridalma Valencia C. POSTERIOR RECTUS SHEATH Received in formalin labeled posterior rectus sheath is an aggregate of red-pink slightly rubbery tissue measuring 4.3 x 2.7 x 0.6 cm. The specimen is serially sectioned and help desk representative sections are submitted in cassette C1. Cold Time: 57m Floridalma Valencia 10:44 AM EDT [facility] Note: A resident was involved in the service. I attest I examined the relevant preparations for the specimens and confirmed the diagnosis or interpretation. 10:44 AM EDT [facility] Tissue Topography unknown / Unknown 06/07/2025 2:04 PM EDT 06/07/2025 3:25 PM EDT Comment:Pre-op diagnosis: Infected hernioplasty mesh, initial encounter ([facility]) [T85.79XA] Tissue specimen (specimen) Topography unknown / Unknown 06/07/2025 2:05 PM EDT 06/07/2025 3:25 PM EDT Comment:Pre-op diagnosis: Infected hernioplasty mesh, initial encounter ([facility]) [T85.79XA] Tissue specimen (specimen) Topography unknown / Unknown 06/07/2025 2:28 PM EDT 06/07/2025 3:25 PM EDT Comment:Pre-op diagnosis: Infected hernioplasty mesh, initial encounter ([facility]) [T85.79XA] us Anais Easton MD LAB PATHOLOGY ORDERABLES Final Result [facility] [address] [place] [address] * Type and Screen (06/07/2025 11:48 AM EDT) ABO/Rh A Positive 06/07/2025 11:54 AM EDT [facility] Antibody Screen Negative 06/07/2025 11:54 AM EDT [facility] Specimen Expiration 06/10/2025 23:59 06/07/2025 11:54 AM EDT [facility] Blood Venous blood specimen / Unknown Venipuncture / Unknown 06/07/2025 11:48 AM EDT 06/07/2025 11:54 AM EDT Anais Easton MD LAB BLOOD BANK TEST ORDER MARU Final Result Performing Organization Address [facility] de Phone Number BLOOD BANK [address] [place] [address], * POCT glucose meter (06/07/2025 11:46 AM EDT) [facility] POCT Glucose 96 74 - 99 mg/dL 06/07/2025 11:47 AM EDT [facility] Comment:Accuracy of a glucos e result obtained from a capillary whole blood specimen relies upon adequate, non-compromised capillary blood flow. If the capillary glucose result is not consistent with the patient's clinical signs and symptoms, glucose testing should be repeated with either an arterial or venous sample on the glucometer or sent to the main labortory for testing. Comment 06/07/2025 11:47 AM EDT [facility] Selector Packer ID Carrie Brandt [phone] 11:47 AM EDT [facility] Device ID [id number] 06/07/2025 11:47 AM EDT [facility] Specimen Type POC Venous 06/07/2025 11:47 AM EDT [facility] Blood Venous blood specimen / Unknown 06/07/2025 11:46 AM EDT 06/07/2025 11:47 AM EDT Anais Easton MD LAB POINT OF CARE TEST DOCKED DEVICE UNSOLICITED RESULTS Final Result Performing Organization Address City/[facility]/ZIP Co de Phone Number [facility] [address] [place] [address] documented in this encounter Visit Diagnoses Diagnosis Infected hernioplasty mesh, initial encounter (CMS/HCC) documented in this encounter Admitting Diagnoses Diagnosis Infected hernioplasty mesh (CMS/HCC) Infected hernioplasty mesh, initial encounter ([facility]) documented in this encounter Administered Medications Inactive Administered Medications - up to 3 most recent administrations Medication Order MAR Action Action Date Dose Rate Site acetaminophen (Tylenol) tablet 1,000 mg 1,000 mg, Oral, Every 6 hours scheduled, First dose on Tue06/07/25 at 1800, Until Discontinued, Routine, Recovery(Phase II-Outpatient)/On Unit(Inpatient) Given 06/08/2025 11:40 AM EDT 1,000 mg Given 06/08/2025 5:09 AM EDT 1,000 mg Given 06/07/2025 11:13 PM EDT 1,000 mg calcium carbonate (Tums) chewable tablet 500 mg 500 mg, Oral, 4 times daily PRN, Starting on Tue06/07/25 at 2318, Until 06/08/25 at 1613, Routine, indigestion, heartburn Given 06/08/2025 12:02 AM EDT 500 m g docusate sodium (Colace) capsule 100 mg 100 mg, Oral, 2 times daily, First dose on Tue06/07/25 at 2100, Until Discontinued, Routine, Recovery(Phase II-Outpatient)/On Unit(Inpatient) Given 06/08/2025 9:28 AM EDT 100 mg Given 06/07/2025 10:46 PM EDT 100 mg famotidine (Pepcid) tablet 20 mg 20 mg, Oral, 2 times daily PRN, Starting on Tue06/07/25 at 2319, Until 06/08/25 at 1613, Routine, indigestion, heartburn heparin (porcine) injection 5,000 Units 5,000 Units, Subcutaneous, Every 8 hours scheduled, First dose on Tue06/07/25 at 1215, Until Discontinued, Routine, Holding - Preprocedure Given 06/07/2025 11:52 AM EDT 5,000 Units Right Upper Arm (Back) heparin (porcine) injection 5,000 Units 5,000 Units, Subcutaneous, Every 8 hours scheduled, First dose on Tue06/07/25 at 1615, Until Discontinued, Routine, Recovery(Phase II-Outpatient)/On Unit(Inpatient) Given 06/08/2025 5:07 AM EDT 5,000 Units Right Upper Arm (Back) Given 06/07/2025 10:46 PM EDT 5,000 Units Left Upper Arm (Back) Given 06/07/2025 4:37 PM EDT 5,000 Units R ight Upper Arm (Back) HYDROmorphone (Dilaudid) injection 0.25 mg 0.25 mg, Intravenous, Every 10 min PRN, 5 doses, Starting on Tue06/07/25 at 1444, Until Tue06/07/25 at 1555, Routine, Recovery (Phase I only), DVPRS >/= 5, CPOT >/= 3, FLACC >/= 4, PAINAD >/= 4 Given 06/07/2025 3:15 PM EDT 0.25 mg HYDROmorphone (Dilaudid) injection 0.5 mg 0.5 mg, Intravenous, Every 10 min PRN, 5 doses, Starting on Tue06/07/25 at 1444, Until Tue06/07/25 at 1555, Routine, Recovery (Phase I only), DVPRS >/= 5, CPOT >/= 3, FLACC >/= 4, PAINAD >/= 4 Given 06/07/2025 3:55 PM EDT 0.5 mg Given 06/07/2025 3:45 PM EDT 0.5 mg Given 06/07/2025 3:35 PM EDT 0.5 mg Wily powder 1 packet 1 packet, Oral, 3 times daily, First dose on Tue06/08/25 at 0900, Until Discontinued, Routine Given 06/08/2025 10:13 AM EDT 1 packet ketamine (Ketalar) injection 9.7 mg 9.7 mg (rounded from 9.69 mg = 0.1 mg/kg 96.9 kg), Intravenous, Once as needed, 1 dose, Starting on Tue06/07/25 at 1607, Until Tue06/07/25 at 1620, Routine, Recovery (Phase I only), DVPRS >/= 5, CPOT >/= 3, FLACC >/= 4, PAINAD >/= 4 refractory to 2 previous opioid injection Given 06/07/2025 4:20 PM EDT 9. 7 mg methocarbamol (Robaxin) tablet 750 mg 750 mg, Oral, Every 8 hours, First dose on Tue06/07/25 at 1615, Until Discontinued, Routine, Recovery(Phase II-Outpatient)/On Unit(Inpatient) Given 06/08/2025 9:28 AM EDT 750 mg Given 06/07/2025 11:15 PM EDT 750 mg Given 06/07/2025 3:25 PM EDT 750 mg ondansetron (Zofran) 4 MG/5ML solution 4 mg 4 mg, Oral, Every 6 hours PRN, Starting on Tue06/07/25 at 1516, Until 06/08/25 at 1613, Routine, Recovery(Phase II-Outpatient)/On Unit(Inpatient), nausea, vomiting ondansetron (Zofran) injection 4 mg 4 mg, Intravenous, Every 6 hours PRN, Starting on Tue06/07/25 at 1516, Until 06/08/25 at 1613, Routine, Recovery(Phase II-Outpatient)/On Unit(Inpatient), vomiting, nausea ondansetron ODT (Zofran-ODT) disintegrating tablet 4 mg 4 mg, Oral, Every 6 hours PRN, Starting on Tue06/07/25 at 1516, Until 06/08/25 at 1613, Routine, Recovery(Phase II-Outpatient)/On Unit(Inpatient), nausea, vomiting oxyCODONE (Roxicodone) immediate release tablet 10 mg 10 mg, Oral, Every 6 hours PRN, Starting on Tue06/07/25 at 1516, Until 06/07/25 at 2036, Routine, Recovery(Phase II-Outpatient)/On Unit(Inpatient), severe pain Given 06/07/2025 7: 01 PM EDT 10 mg oxyCODONE (Roxicodone) immediate release tablet 10 mg 10 mg, Oral, Every 4 hours PRN, Starting on Tue06/07/25 at 2036, Until 06/08/25 at 1613, Routine, Recovery(Phase II-Outpatient)/On Unit(Inpatient), severe pain Given 06/08/2025 9: 28 AM EDT 10 mg Given 06/08/2025 5:07 AM EDT 10 mg Given 06/07/2025 11:12 PM EDT 10 mg oxyCODONE (Roxicodone) immediate release tablet 5 mg 5 mg, Oral, Every 4 hours PRN, Starting on Tue06/07/25 at 2036, Until 06/08/25 at 1613, Routine, Recovery(Phase II-Outpatient)/On Unit(Inpatient), moderate pain pantoprazole (Protonix) EC tablet 40 mg 40 mg, Oral, Daily, First dose on 06/08/25 at 0900, Until Discontinued, Recovery(Phase II-Outpatient)/On Unit(Inpatient) Given 06/08/2025 9:28 AM EDT 40 mg pantoprazole (Protonix) EC tablet 40 mg 40 mg, Oral, Once, 1 dose, On 06/08/25 at 0015, Routine Given 06/07/2025 11:36 PM EDT 40 mg Povidone-Iodine 5 % swab solution 1 Application Nasal, Once, 1 dose, On Tue06/07/25 at 1215, Routine Given 06/07/2025 11:45 AM EDT 1 Application sodium chloride 0.9 % flush 10 mL 10 mL, Intravenous, Every 12 hours, First dose on Tue06/07/25 at 1215, Until Discontinued, Routine, Holding - Preprocedure Given 06/07/2025 11:52 AM EDT 10 mL sodium chloride 0.9 % flush 10 mL 10 mL, Intravenous, Every 12 hours, First dose on Tue06/07/25 at 1615, Until Discontinued, Routine, Recovery(Phase II-Outpatient)/On Unit(Inpatient) Given 06/08/2025 4:49 AM EDT 10 mL Given 06/07/2025 7:00 PM EDT 10 mL sodium chloride 0.9 % flush 10 mL 10 mL, Intravenous, As needed, Starting on Tue06/07/25 at 1515, Until 06/08/25 at 1613, Routine, Recovery(Phase II-Outpatient)/On Unit(Inpatient), line care documented in this encounter Active and Recently Administered Medications Times are shown in EDT. Scheduled Medication Order 06/06/2025 06/07/2025 06/08/2025 acetaminophen (Tylenol) tablet 1,000 mg 1,000 mg, Oral, Every 6 hours scheduled, First dose on Tue06/07/25 at 1800, Until Discontinued, Routine, Recovery(Phase II-Outpatient)/On Unit(Inpatient) 2534 (Given - Provider: Amanda Ramsey RN)8615 (Given - Provider: Annie Farris - Comment: scheduled) 0509 (Given - Provider: Annie Farris - Comment: scheduled)1140 (Given - Provider: Wilder Tucker, DEREK) atomoxetine (Strattera) capsule 100 mg 100 mg, Oral, Daily, First dose on Tue06/07/25 at 1615, Until Discontinued, Recovery(Phase II-Outpatient)/On Unit(Inpatient) 1806 (Not Given - Provider: Pratima Bermudez RN - Reason: Patient/family refused) 0930 (Not Given - Provider: Wilder Tucker RN - Reason: Patient/family refused) cefOXitin (Mefoxin) injection 2 g (COMPLETED) 2 g, Intravenous, Once, 1 dose, On Tue06/07/25 at 1430, Routine, Anesthesia Intraprocedure 1300 (Given - Provider: Griselda Taylor MD) docusate sodium (Colace) capsule 100 mg 100 mg, Oral, 2 times daily, First dose on Tue06/07/25 at 2100, Until Discontinued, Routine, Recovery(Phase II-Outpatient)/On Unit(Inpatient) 2246 (Given - Provider: Annie Farris - Comment: patient choice) 0928 (Given - Provider: Wilder Tucker RN) heparin (porcine) injection 5,000 Units (CANCELED) 5,000 Units, Subcutaneous, Every 8 hours scheduled, First dose on Tue06/07/25 at 1215, Until Discontinued, Routine, Holding - Preprocedure 1152 (Given - Provider: Carrie Brandt RN) heparin (porcine) injection 5,000 Units 5,000 Units, Subcutaneous, Every 8 hours scheduled, First dose on Tue06/07/25 at 1615, Until Discontinued, Routine, Recovery(Phase II-Outpatient)/On Unit(Inpatient) 1637 (Given - Provider: Pratima Bermudez RN)2246 (Given - Provider: Annie Farris) 0507 (Given - Provider: Annie Farris)1400 (Canceled Entry - Provider: Automatic Discharge Provider - Comment: Automatically canceled at discontinue of medication order) Wily powder 1 packet 1 packet, Oral, 3 times daily, First dose on Tue06/08/25 at 0900, Until Discontinued, Routine 1013 (Given - Provid er: Wilder Tucekr RN)1600 (Canceled Entry - Provider: Automatic Discharge Provider - Comment: Automatically canceled at discontinue of medication order) methocarbamol (Robaxin) tablet 750 mg 750 mg, Oral, Every 8 hours, First dose on Tue06/07/25 at 1615, Until Discontinued, Routine, Recovery(Phase II-Outpatient)/On Unit(Inpatient) 1525 (Given - Provider: Pratima Bermudez RN)2315 (Given - Provider: Annie Farris) 0928 (Given - Provider: Wilder Tucker RN) pantoprazole (Protonix) EC tablet 40 mg 40 mg, Oral, Daily, First dose on 06/08/25 at 0900, Until Discontinued, Recovery(Phase II-Outpatient)/On Unit(Inpatient) 0928 (Given - Provid er: Wilder Tucker RN) pantoprazole (Protonix) EC tablet 40 mg (COMPLETED) 40 mg, Oral, Once, 1 dose, On 06/08/25 at 0015, Routine 2336 (Given - Provider: Annie Farris) Povidone-Iodine 5 % swab solution 1 Application (COMPLETED) Nasal, Once, 1 dose, On Tue06/07/25 at 1215, Routine 1145 (Given - Provider: Radha Philip RN) sodium chloride 0.9 % flush 10 mL (CANCELED)(Linked Group 1) 10 mL, Intravenous, Every 12 hours, First dose on Tue06/07/25 at 1215, Until Discontinued, Routine, Holding - Preprocedure 1152 (Given - Provider: Carrie Brandt RN) sodium chloride 0.9 % flush 10 mL(Linked Group 2) 10 mL, Intravenous, Every 12 hours, First dose on Tue06/07/25 at 1615, Until Discontinued, Routine, Recovery(Phase II-Outpatient)/On Unit(Inpatient) 1900 (Given - Provider: Amanda Ramsey RN) 0449 (Given - Provider: Annie Farris) PRN Medication Order 06/06/2025 06/07/2025 06/08/2025 calcium carbonate (Tums) chewable tablet 500 mg 500 mg, Oral, 4 times daily PRN, Starting on Tue06/07/25 at 2318, Until 06/08/25 at 1613, Routine, indigestion, heartburn 0002 (Given - Provid er: Annie Farris) famotidine (Pepcid) tablet 20 mg 20 mg, Oral, 2 times daily PRN, Starting on Tue06/07/25 at 2319, Until 06/08/25 at 1613, Routine, indigestion, heartburn HYDROmorphone (Dilaudid) injection 0.25 mg (COMPLETED)(Linked Group 3) 0.25 mg, Intravenous, Every 10 min PRN, 5 doses, Starting on Tue06/07/25 at 1444, Until Tue06/07/25 at 1555, Routine, Recovery (Phase I only), DVPRS >/= 5, CPOT >/= 3, FLACC >/= 4, PAINAD >/= 4 1515 (Given - Provider: Pratima Bermudez RN)1525 (See Alternative - Provider: Pratima Bermudez RN)1535 (See Alternative - Provider: Pratima Bermudez RN)1545 (See Alternative - Provider: Pratima Bermudez RN)1555 (See Alternative - Provider: Pratima Bermudez RN) HYDROmorphone (Dilaudid) injection 0.5 mg (COMPLETED)(Linked Group 3) 0.5 mg, Intravenous, Every 10 min PRN, 5 doses, Starting on Tue06/07/25 at 1444, Until Tue06/07/25 at 1555, Routine, Recovery (Phase I only), DVPRS >/= 5, CPOT >/= 3, FLACC >/= 4, PAINAD >/= 4 1515 (See Alternative - Provider: Pratima Bermudez RN)1525 (Given - Provider: Pratima Bermudez RN)1535 (Given - Provider: Pratima Bermudez RN)1545 (Given - Provider: Pratima Bermudez RN)1555 (Given - Provider: Pratima Bermudez RN) ketamine (Ketalar) injection 9.7 mg (COMPLETED) 9.7 mg (rounded from 9.69 mg = 0.1 mg/kg 96.9 kg), Intravenous, Once as needed, 1 dose, Starting on Tue06/07/25 at 1607, Until Tue06/07/25 at 1620, Routine, Recovery (Phase I only), DVPRS >/= 5, CPOT >/= 3, FLACC >/= 4, PAINAD >/= 4 refractory to 2 previous opioid injection 162 (Given - Provider: Pratima Bermudez RN) melatonin tablet 6 mg 6 mg, Oral, Nightly PRN, Starting on Tue06/07/25 at 1518, Until 06/08/25 at 1613, Recovery(Phase II-Outpatient)/On Unit(Inpatient), sleep ondansetron (Zofran) 4 MG/5ML solution 4 mg(Linked Group 4) 4 mg, Oral, Every 6 hours PRN, Starting on Tue06/07/25 at 1516, Until 06/08/25 at 1613, Routine, Recovery(Phase II-Outpatient)/On Unit(Inpatient), nausea, vomiting ondansetron (Zofran) injection 4 mg(Linked Group 4) 4 mg, Intravenous, Every 6 hours PRN, Starting on Tue06/07/25 at 1516, Until 06/08/25 at 1613, Routine, Recovery(Phase II-Outpatient)/On Unit(Inpatient), vomiting, nausea ondansetron ODT (Zofran-ODT) disintegrating tablet 4 mg(Linked Group 4) 4 mg, Oral, Every 6 hours PRN, Starting on Tue06/07/25 at 1516, Until 06/08/25 at 1613, Routine, Recovery(Phase II-Outpatient)/On Unit(Inpatient), nausea, vomiting oxyCODONE (Roxicodone) immediate release tablet 10 mg (CANCELED) 10 mg, Oral, Every 6 hours PRN, Starting on Tue06/07/25 at 1516, Until 06/07/25 at 2036, Routine, Recovery(Phase II-Outpatient)/On Unit(Inpatient), severe pain 1900 (Given - Provider: Amanda Ramsey RN) oxyCODONE (Roxicodone) immediate release tablet 10 mg(Linked Group 5) 10 mg, Oral, Every 4 hours PRN, Starting on Tue06/07/25 at 2036, Until 06/08/25 at 1613, Routine, Recovery(Phase II-Outpatient)/On Unit(Inpatient), severe pain 2312 (Given - Provider: Annie Farris) 0507 (Given - Provider: Annie Farris)0928 (Given - Provider: Wilder Tucker RN) oxyCODONE (Roxicodone) immediate release tablet 5 mg(Linked Group 5) 5 mg, Oral, Every 4 hours PRN, Starting on Tue06/07/25 at 2036, Until 06/08/25 at 1613, Routine, Recovery(Phase II-Outpatient)/On Unit(Inpatient), moderate pain 2312 (See Alternative - Provider: Annie Farris) 0507 (See Alternative - Provider: Annie Farris)0928 (See Alternative - Provider: Wilder Tucker RN) sodium chloride 0.9 % flush 10 mL(Linked Group 2) 10 mL, Intravenous, As needed, Starting on Tue06/07/25 at 1515, Until 06/08/25 at 1613, Routine, Recovery(Phase II-Outpatient)/On Unit(Inpatient), line care traZODone (Desyrel) tablet 25 mg 25 mg, Oral, Nightly PRN, Starting on Tue06/07/25 at 1519, Until 06/08/25 at 1613, Routine, Recovery(Phase II-Outpatient)/On Unit(Inpatient), sleep Linked Groups Order Group 1: Insert peripheral IV (CANCELED) Once, On Tue06/07/25 at 1125, For 1 occurrence, Holding - Preprocedure And Saline lock IV (CANCELED) Once, On Tue06/07/25 at 1125, For 1 occurrence, Holding - Preprocedure And sodium chloride 0.9 % flush 10 mL (CANCELED)Jump to med 10 mL, Intravenous, Every 12 hours, First dose on Tue06/07/25 at 1215, Until Discontinued, Routine, Holding - Preprocedure And sodium chloride 0.9 % flush 10 mL (CANCELED) 10 mL, Intravenous, As needed, Starting on Tue06/07/25 at 1125, Until 06/07/25 at 1851, Routine, Holding - Preprocedure, line care Group 2: Insert peripheral IV (CANCELED) Once, On Tue06/07/25 at 1516, For 1 occurrence, Recovery(Phase II- Outpatient)/On Unit(Inpatient) And Saline lock IV (CANCELED) Once, On Tue06/07/25 at 1516, For 1 occurrence, Recovery(Phase II- Outpatient)/On Unit(Inpatient) And sodium chloride 0.9 % flush 10 mLJump to med 10 mL, Intravenous, Every 12 hours, First dose on Tue06/07/25 at 1615, Until Discontinued, Routine, Recovery(Phase II-Outpatient)/On Unit(Inpatient) And sodium chloride 0.9 % flush 10 mLJump to med 10 mL, Intravenous, As needed, Starting on Tue06/07/25 at 1515, Until 06/08/25 at 1613, Routine, Recovery(Phase II-Outpatient)/On Unit(Inpatient), line care Group 3: HYDROmorphone (Dilaudid) injection 0.25 mg (COMPLETED)Jump to med 0.25 mg, Intravenous, Every 10 min PRN, 5 doses, Starting on Tue06/07/25 at 1444, Until Tue06/07/25 at 1555, Routine, Recovery (Phase I only), DVPRS >/= 5, CPOT >/= 3, FLACC >/= 4, PAINAD >/= 4 Or HYDROmorphone (Dilaudid) injection 0.5 mg (COMPLETED)Jump to med 0.5 mg, Intravenous, Every 10 min PRN, 5 doses, Starting on Tue06/07/25 at 1444, Until Tue06/07/25 at 1555, Routine, Recovery (Phase I only), DVPRS >/= 5, CPOT >/= 3, FLACC >/= 4, PAINAD >/= 4 Group 4: ondansetron ODT (Zofran-ODT) disintegrating tablet 4 mgJump to med 4 mg, Oral, Every 6 hours PRN, Starting on Tue06/07/25 at 1516, Until 06/08/25 at 1613, Routine, Recovery(Phase II-Outpatient)/On Unit(Inpatient), nausea, vomiting Or ondansetron (Zofran) injection 4 mgJump to med 4 mg, Intravenous, Every 6 hours PRN, Starting on Tue06/07/25 at 1516, Until 06/08/25 at 1613, Routine, Recovery(Phase II-Outpatient)/On Unit(Inpatient), vomiting, nausea Or ondansetron (Zofran) 4 MG/5ML solution 4 mgJump to med 4 mg, Oral, Every 6 hours PRN, Starting on 06/07/25 at 1516, Until 06/08/25 at 1613, Routine, Recovery(Phase II-Outpatient)/On Unit(Inpatient), nausea, vomiting Group 5: oxyCODONE (Roxicodone) immediate release tablet 5 mgJump to med 5 mg, Oral, Every 4 hours PRN, Starting on Tue06/07/25 at 2036, Until 06/08/25 at 1613, Routine, Recovery(Phase II-Outpatient)/On Unit(Inpatient), moderate pain Or oxyCODONE (Roxicodone) immediate release tablet 10 mgJump to med 10 mg, Oral, Every 4 hours PRN, Starting on Tue06/07/25 at 2036, Until 06/08/25 at 1613, Routine, Recovery(Phase II-Outpatient)/On Unit(Inpatient), severe pain documented in this encounter Additional Health Concerns Infection Onset Date Last Indicated Resolved Time MRSA Comment:Added from external infection. Source: [facility]. 10/07/2023 Assessment Noted Time A Body Mass Index follow-up plan has been documented for the patient 06/08/2025 11:07 AM EDT documented as of this encounter Care Teams [employer] Relationship Specialty Start Date End Date Day, AMANDA [address] [place] [address] PCP - General 12/26/20 documented as of this encounter
--- OUTSIDE RECORDS SUMMARY | 2025-06-07 10:05 | XMS_ITS | Encounter Summary ---
Author Organization [facility] Address [address] [place] [address] Care Team Providers Care Apprenticeship Training Representative Name Role Phone Day, Marilin PATEL Primary Care Provider [phone] Reason for Visit * Auth/Cert (Routine) Specialty Diagnoses / Procedures Referred By Contac t Referred To Contact Diagnoses Infected hernioplasty mesh, initial encounter (CMS/HCC) Infected hernioplasty mesh, initial encounter ([facility]) [T85.79XA] Procedures MT EXPLORATORY OF ABDOMEN MT DEBRIDEMENT, SKIN, SUB-Q TISSUE,=<20 SQ CM MT RPR AA HERNIA 1ST 3-10 CM REDUCIBLE LAPAROTOMY, EXPLORATORY IRRIGATION AND DEBRIDEMENT, ABDOMEN REPAIR, HERNIA, INCISIONAL Anais Easton MD [address] [address] Phone: tel: fax: [facility] [address] [place] [address] Phone: tel: Referral ID Status Reason Start Date Expiration Date Visits Re quested Visits Authorized [id number] 1 3 Encounter Details Date Type Department Care Team (Late st Contact Info) Description 06/07/2025 11:05 AM EDT - 06/07/2025 2:20 PM EDT Surgery [facility] [address] [place] [id number] Anais Easton MD [address] [place] [id number] LAPAROTOMY, EXPLORATORY [05177 (CPT )] Surgery Details Date/Time Status Location OR Service Patient Class Case Class Case Type Trauma Case? 06/07/2025 11:05 AM Posted JUAN C OR 2OR 06 General Surgery Surgery Admit E-Electiv e Panel 1 Procedure LRB Anes Op Region Wound Class Comments LAPAROTOMY, EXPLORATORY N/A General Class I/ Clean IRRIGATION AND DEBRIDEMENT, ABDOMEN N/A General REPAIR, HERNIA, INCISIONAL N/A General Surgeon Surgeon Role Service Panel Anais Easton MD Primary General Surgery 1 Luisa Ghotra MD Resident - Assisting 1 Pradeep Sanders MD Resident - Assisting 1 documented in this encounter Social History Tobacco [...] Sign Reading Time Taken Comments Blood Pressure 124/80 06/07/2025 11:19 AM EDT Pulse 70 06/07/2025 11:19 AM EDT Temperature 37 C (98.6 F) 06/07/2025 11:19 AM EDT Respiratory Rate 16 06/07/2025 11:19 AM EDT Oxygen Saturation 100% 06/07/2025 11:19 AM EDT Inhaled Oxygen Concentration - - Weight 96.9 kg (213 lb 10 oz) 06/07/2025 11:55 A M EDT Height - - Body Mass Index 34 06/07/2025 8:00 PM EDT documented in this encounter Discharge Instructions * Discharge Instructions* Mayad Chand APRN - 06/08/2025 10:08 AM EDT Discharge Instructions: [...] Jimena Suero, Nurse Coordinator between 7am-3pm at [phone]. If it is after hours, weekends, and holidays please call [phone] and ask for the resident rock mason for Emergency General Surgery. For appointments please call our General Surgery Clinic at [phone]. Medication requests should be made between the hours of 9:00 AM to 3:00 PM Tuesday thru Tuesday. Please note that based upon recent changes to [place] law related to prescribing opioid pain medications, [...] Care Review Outcome: Met Flowsheets (Taken 06/08/2025 1055) Progress: improving Plan of Care Reviewed With: [...] Outcome: Met Intervention: Promote Activity and Functional [place] Flowsheets (Taken 06/08/2025 0000 by Annie Farris) [...] from the original note were not included. [id number] Naloxone Nasal [place] WHY is this medicine prescribed? Prescription and [...] pharmacist for the instructions or visit the mechanical supervisor's website to get the instructions. You should [...] or doctor for a copy of the mechanical supervisor's information for the patient. Are there OTHER [...] and out of their sight and reach. https://www.upandaway.org Dispose of unneeded medications in a way [...] of all of the prescription and nonprescription (mvyd-msq-uopfltc) medicines, vitamins, minerals, and dietary supplements you [...] or pharmacist about specific clinical use. The [place] [employer] represents that the information provided hereunder was formulated with a reasonable standard of care, and in conformity with professional standards in the field. The [place] [employer] makes no representations or warranties, express or implied, including, but not limited to, any implied warranty of merchantability and/or fitness for a particular purpose, with respect to such information and specifically disclaims all such warranties. Users are advised that decisions regarding drug therapy are complex medical decisions requiring the independent, informed decision of an appropriate health child care group leader, and the information is provided for informational purposes only. The entire monograph for a drug should be reviewed for a thorough understanding of the drug's actions, uses and side effects. The [place] [employer] does not endorse or recommend the use of any drug.The information is not a substitute for medical care. AHFS?? Patient Medication Information?. ?? Copyright, 2023. The [place] [employer] Pharmacists??, [address] [facility], [address], [place], [place]. All Rights Reserved. Duplication for commercial use must be authorized by [facility]. Selected Revisions: March 03, 2024. [...] controlled substances: ? Drug Enforcement Agency (ANDREA): http://www.deadiversion.Adocu.comoj.gov/drug_disposal/takeback/index.htm ? National Association of Drug Diversion Investigators (NADDI): http://rxdrugdropbox.org/ ? [place] Office of Drug Control Policy: http://odcp.mn.gov/Prescription+Drug+Drop+Box+Sites.htm Are there concerns about or ? ? [...] that tracks prescriptions of controlled substances in [place]. The HETAL report tells your doctor if you have been prescribed controlled substances in the past. Doctors must get a HETAL report before prescribing controlled substances. What can I do if the information in my HETAL report is wrong? You or your doctor may contact the dispenser who reported the information to HETAL. If the dispenser agrees that the information should be changed, he or she can fix the HETAL report. However, the dispenser may certify that the report is correct. If that is the case, you or your doctor may then call the [place] Drug Enforcement and Professional Practices Branch at .This will start an investigation of the error. * Bravo On[facility] - Ashutosh Tamayo RN - 06/08/2025 10:21 AM EDT Images from the original note were not included. 1087 Oxycodone Oral Tablet, Immediate Release Brand Names: Oxaydo, Roxicodone What is this medicine? Oxycodone (wb-r-KKW-done) is an opioid pain reliever. It is used to treat moderate to severe pain. What should I tell my health care provider before I take this medicine? They need to know if you have any of these conditions: ? [place]'s disease ? Brain tumor or head injury [...] a special medication guide each time you berry picker this medicine. ? Overdosage: Taking too much [...] should report to your doctor or health child care group leader as soon as possible: ? allergic reactions [...] attention (report to your doctor or health child care group leader if they continue or are bothersome): ? constipation ? dry mouth ? itching ? nausea, vomiting ? upset stomach This list may not describe all possible side effects. Call your doctor for medical advice about side effects. You may report side effects to FDA at 2-701-THV-0250. Where should I keep my medicine? This [...] location. To find a disposal location, visit [facility]/[place]. If you cannot take unused medicine to a proper location, you can mix the medicine with coffee grounds or kyung litter and dispose of in the normal trash. Your doctor may also give you a special disposal pouch for this medicine. You can also flush the medicine down the toilet. * Bravo Biggs - Ashutosh Tamayo RN - 06/08/2025 10:21 AM EDT Images from the original note were not included. 17581 Discharge Instructions for Open Hernia Repair You [...] Don?t mow the lawn, use a vacuum ceiling cleaner, or do other strenuous activities until your [...] breathing. Last Reviewed Date: 2024 00:00:00 ?? 3704-4537 [employer] All rights reserved. This information is not intended as a substitute for professional medical care. Always follow your healthcare professional's instructions. * Bravo [facility] - Ashutosh Tamayo RN - 06/08/2025 10:21 AM EDT Images from the original note were not included. 88116 Preventing a Surgical Site Infection A risk [...] of infection. ? Controlled body temperature. A mhzmx-gken-vvomiw temperature during or after surgery prevents oxygen [...] and water or with an alcohol-based hand anthropology and archeology instructor before and after caring for you. Don?t [...] away. Last Reviewed Date: 2024 00:00:00 ?? 2106-2267 [employer] All rights reserved. This information is not intended as a substitute for professional medical care. Always follow your healthcare professional's instructions. * Betsyjasmina Dian - Ashutosh Tamayo RN - 06/08/2025 10:21 AM EDT Images from the original note were not included. 69965 Discharge Instructions: Caring for Your Abdominal Incision [...] provider Last Reviewed Date: 2024 00:00:00 ?? 6688-2633 [employer] All rights reserved. This information is not intended as a substitute for professional medical care. Always follow your healthcare professional's instructions. * [facility] Ashutosh Tamayo RN - 06/08/2025 10:21 AM EDT Images from the original note were not included. 19408 Exploratory Laparotomy Exploratory laparotomy is surgery to [...] uses a tiny camera and several small incisions. But in many cases, an exploratory laparotomy, [...] about any medicines you?re taking. This includes phao-azc-cmdular medicines, prescription medicines, herbs, illegal drugs, vitamins, [...] anesthesia. Last Reviewed Date: 2024 00:00:00 ?? 4810-7416 [employer] All rights reserved. This information is not intended as a substitute for professional medical care. Always follow your healthcare professional's instructions. * Betsyjasmina Dian - Ashutosh Tamayo RN - 06/08/2025 10:21 AM EDT Images from the original note were not included. 83289 Hernia Repair Surgery A hernia is a [...] herbs you take. Thisincludes both prescription and hgbp-kqi-obeizhd medicines. Ask if you should stop taking [...] Shortly before surgery, an anesthesiologist or nurse food photographer will talk with you. They'll explain the [...] injury Last Reviewed Date: 2023 00:00:00 ?? 2080-7089 [employer] All rights reserved. This information is not intended as a substitute for professional medical care. Always follow your healthcare professional's instructions. * Discharge Summary - Mayda Chand APRN - 06/08/2025 10:08 AM EDT Hospitalization Admit Date/Time: 06/07/2025 9:44 AM Admitting Attending: Anais Easton Discharge Date: 06/08/2025 Discharge Attending Physician: Anais Easton MD PCP name and Address: Marilin Langley PA [address] [place] [address] Referring provider name and address: No referring [...] personal history of HTN, T2DM, DVT, PE, MA, Stroke, or issues with anesthesia. Denies personal [...] Your Medications These medications were sent to [facility] - [place], [place] - [address], [facility] [address] acetaminophen 500 MG tablet DSS 100 MG capsule methocarbamol 750 MG tablet naloxone 4 mg/0.1 mL nasal spray ondansetron ODT 4 MG disintegrating tablet oxyCODONE 5 MG immediate release tablet Discharge Diagnosis Medical Problems Active and Resolved Hospital Problems Hospital * (Principal) Infected hernioplasty mesh ([facility]) Infected hernioplasty mesh, initial encounter ([facility]) Discharge Instructions: Precautions: - You [...] Jimena Suero, Nurse Coordinator between 7am-3pm at [phone]. If it is after hours, weekends, and holidays please call [phone] and ask for the resident rock mason for Emergency General Surgery. For appointments please call our General Surgery Clinic at [phone]. Medication requests should be made between the hours of 9:00 AM to 3:00 PM Tuesday thru Tuesday. Please note that based upon recent changes to [place] law related to prescribing opioid pain medications, our providers will not provide refills on controlled medications after your hospital discharge following a major surgery or trauma. [place], [place] 201 KAR9:260. Outpatient Follow-Up Future Appointments Date Time Provider Department Center 06/20/2025 11:00 AM Douglas Sanders PA [id number] [place] Test Results Pending At Discharge Pending Labs [...] personal history of HTN, T2DM, DVT, PE, MA, Stroke, or issues with anesthesia. Denies personal [...] Affect: Mood normal. Behavior: Behavior normal. Plan: -[facility] -Regular diet -AM labs Martha Gay MD PGY-1 Pager: [phone] Epic chat preferred for non-emergent communication.' * [...] Agree with above assessment and evaluation from resident/CONTINUITY TESTER. * Op Note - Anais Easton MD - 06/07/2025 1:23 PM EDT Operative Note Date: 06/07/25 Location: [facility] Name: Brandon Barfield : 1985, Diagnoses: Pre-op Diagnosis Infected hernioplasty mesh, initial encounter (CMS/HCC) Post-op Diagnosis Infected hernioplasty mesh, initial encounter ([facility]) Procedure(s): Exploratory laparotomy Debridement abdominal wall Resection infected hernioplasty mesh Primary hernia repair, 25 cm x 4 cm Attending Surgeon(s): * Anais Easton - Primary Gear Changer(s): * Pradeep Sanders MD - Resident - [...] surgery for Infected hernioplasty mesh, initial encounter ([facility]). Narrative: After obtaining informed consent [...] 06/07/2025 1:23 PM EDT Date: 06/07/25 Location: [facility] Name: Brandon Barfield, : 1985, Diagnoses: Pre-op Diagnosis Infected hernioplasty mesh, initial encounter ([facility]) Post-op Diagnosis Infected hernioplasty mesh, initial encounter ([facility]) Procedure(s): Exploratory laparotomy Mesh explant Fascial closure Attending Surgeon(s): * Anais Easton - Primary Gear Changer(s): * Pradeep Sanders MD - Resident - [...] 06/07/2025 1:23 PM EDT Date: 06/07/25 Location: [facility] Name: Brandon Barfield, : 1985, Diagnoses: Pre-op Diagnosis Infected hernioplasty mesh, initial encounter ([facility]) Post-op Diagnosis Infected hernioplasty mesh, initial encounter ([facility]) Procedure(s): Exploratory laparotomy, mesh excision Attending Surgeon(s): * Anais Easton - Primary Gear Changer(s): * Pradeep Sanders MD - Resident - [...] personal history of HTN, T2DM, DVT, PE, MA, Stroke, or issues with anesthesia. Denies personal [...] results. Assessment & Plan Infected hernioplasty mesh (CMS/HCC) Infected hernioplasty mesh, initial encounter ([facility]) Mr. Barfield is a 40M presenting for exploratory laparotomy, mesh excision, ventral hernia repair. Consent obtained. Luisa Ghotra MD General Surgery PGY3 Pager: [phone] [1] Current Facility-Administered Medications Medication Dose Route Frequency Provider Last Rate Last Admin heparin (porcine) injection 5,000 Units 5,000 Units Subcutaneous q8h [facility] Anais Easton MD 5,000 Units at 06/07/25 [...] Description 06/20/2025 11:00 AM EST Office Visit [facility] [address] [place] [address] Douglas Sanders PA [address] [facility] [address] [place] [address] 06/25/2025 11:30 AM EST Office Visit [facility] General Surgery [address] [place] [address] Dominique Garcia, JAMAR [address] [place] [address] Scheduled Orders Name Type Priority Associated Diagnoses [...] EDT Infected hernioplasty mesh, initial encounter (CMS/HCC) MT RPR AA HERNIA 1ST 3-10 CM REDUCIBLE 06/07/2025 12:20 PM EDT Infected hernioplasty mesh, initial encounter (CMS/HCC) MT DEBRIDEMENT, SKIN, SUB-Q TISSUE,=<20 SQ CM 06/07/2025 12:20 PM EDT Infected hernioplasty mesh, initial encounter (CMS/HCC) MT EXPLORATORY OF ABDOMEN 06/07/2025 12:20 PM EDT Infected hernioplasty mesh, initial encounter (CMS/[facility]) TYPE AND SCREEN Routine 06/07/2025 11:48 AM EDT POCT GLUCOSE METER UNSOLICITED RESULTS Routine 06/07/2025 11:46 AM EDT documented in this encounter Results * Phosphorus (06/08/2025 4:48 AM EDT) Phosphorus, Plasma 4.5 2.5 - 4.5 mg/dL 06/08/2025 5:29 AM EDT [facility] Blood Venous blood specimen / Unknown Venipuncture / Unknown 06/08/2025 4:48 AM EDT 06/08/2025 4:57 AM EDT Anais Easton MD LAB BLOOD ORDERABLES Rebecca l Result Performing Organization Address [facility] Co de Phone Number [facility] [address] [place] [address] * Magnesium (06/08/2025 4:48 AM EDT) Magnesium, Plasma 2.0 1.9 - 2.4 mg/dL 06/08/2025 5:29 AM EDT [facility] Blood Venous blood specimen / Unknown Venipuncture / Unknown 06/08/2025 4:48 AM EDT 06/08/2025 4:57 AM EDT Anais Easton MD LAB BLOOD ORDERABLES Rebecca l Result [facility] [address] [place] [address] * (ABNORMAL) Basic Metabolic Panel (06/08/2025 4:48 AM EDT) Glucose, Plasma 105(H) 74 - 99 mg/dL 06/08/2025 5:29 AM EDT [facility] BUN, Plasma 9 7 - 21 mg/dL 06/08/2025 5:29 AM EDT [facility] Creatinine, Plasma 0.72 0.70 - 1.20 mg/dL 06/08/2025 5:29 AM EDT [facility] BUN/Creatinine Ratio 13 06/08/2025 5:29 AM EDT [facility] Sodium, Plasma 140 136 - 145 mmol/L 06/08/2025 5:29 AM EDT [facility] Potassium, Plasma 5.1(H) 3.6 - 4.9 mmol/L 06/08/2025 5:29 AM EDT [facility] Chloride, Plasma 104 97 - 107 mmol/L 06/08/2025 5:29 AM EDT [facility] CO2, Plasma 27 22 - 29 mmol/L 06/08/2025 5:29 AM EDT [facility] Anion Gap 9 6 - 16 mmol/L 06/08/2025 5:29 AM EDT [facility] Total Calcium, Plasma 8.6(L) 8.9 - 10.2 mg/dL 06/08/2025 5:29 AM EDT [facility] eGFRcr 117.7 mL/min/1.7 3m*2 06/08/2025 5:29 AM EDT [facility] Comment:Reported eGFRcr in m L/min/1.73m2 is based the CKD-EPI 2020 equation that does not use a race coefficient. Blood Venous blood specimen / Unknown Venipuncture / Unknown 06/08/2025 4:48 AM EDT 06/08/2025 4:57 AM EDT us Anais Easton MD LAB BLOOD ORDERABLES Rebecca l Result [facility] [address] [place] [address] * (ABNORMAL) CBC (06/08/2025 4:48 AM EDT) WBC Count 12.30(H) 3.70 - 10.30 10*3/uL LAB HEMATOLOGY METHOD 06/08/2025 5:05 AM EDT [facility] RBC Count 4.58(L) 4.60 - 6.10 10*6/uL LAB HEMATOLOGY METHOD 06/08/2025 5:05 AM EDT [facility] HGB 14.1 13.7 - 17.5 g/dL LAB HEMATOLOGY METHOD 06/08/2025 5:05 AM EDT [facility] HCT 40.7 40.0 - 51.0 % LAB HEMATOLOGY METHOD 06/08/2025 5:05 AM EDT [facility] Platelet Count 291 155 - 369 10*3/uL LAB HEMATOLOGY METHOD 06/08/2025 5:05 AM EDT [facility] MCV 89 79 - 98 fL LAB HEMATOLOGY METHOD 06/08/2025 5:05 AM EDT [facility] MCH 30.8 26.0 - 32.0 pg LAB HEMATOLOGY METHOD 06/08/2025 5:05 AM EDT [facility] MCHC 34.6 30.7 - 35.5 g/dL LAB HEMATOLOGY METHOD 06/08/2025 5:05 AM EDT [facility] RDW 13.1 11.5 - 14.5 % LAB HEMATOLOGY METHOD 06/08/2025 5:05 AM EDT [facility] MPV 9.3 8.8 - 12.5 fL LAB HEMATOLOGY METHOD 06/08/2025 5:05 AM EDT [facility] nRBC 0.0 <=0.0 per 100 WBCs LAB HEMATOLOGY METHOD 06/08/2025 5:05 AM EDT [facility] Blood Venous blood specimen / Unknown Venipuncture / Unknown 06/08/2025 4:48 AM EDT 06/08/2025 4:57 AM EDT us Anais Easton MD LAB BLOOD ORDERABLES Rebecca gordon Result [facility] [address] [place] [address] * Surgical Pathology Exam (06/07/2025 2:04 PM EDT) Case Report Surgical Pathology Case: [id number] Authorizing Provider: Anais Easton MD Collected: 06/07/2025 1842 Ordering Location: [facility] A OPERATING RO[facility] Received: 06/07/2025 0812 Pathologist: Heidy Lowe MD Specimens: A) - Other (specify site), intraabdominal mass B) - Other (specify site), explanted abdominal mesh C) - Other (specify site), posterior rectus sheath 10:44 AM EDT [facility] Final Diagnosis A. INTRAABDOMINAL [...] - NEGATIVE FOR MALIGNANCY. 10:44 AM EDT [facility] at 1044 EDT Clinical Information Infected hernioplasty mesh, initial encounter (CMS/[facility]) [T85.79XA] 10:44 AM EDT [facility] Special and Immunohistochemical Stains Special Stain: A2-2 GMS : Negative A2-3 Acid Fast Bacteria : Negative All controls show appropriate reactivity. All immunohistochemis try, in situ hybridization, and histochemical tests were developed by and are performed at the [facility], [address] [place] [address]. All tests reported here, except those addressing [...] negativity on decalcified specimens. 10:44 AM EDT [facility] Gross Description A. INTRAABDOMINAL MASS Received fresh and subsequently placed in formalin labeled intra-abdominal mass is a portion of red-pink to yellow-sharp soft and slightly fibrous tissue measuring 2.7 x 2.7 x 1.0 cm. The specimen is serially sectioned and sales representative gas service sections are submitted in cassettes A1-A2. Cold Time: 1h 21m Floridalma Valencia B. EXPLANTED ABDOMINAL MESH Received fresh and subsequently placed in formalin labeled explant abdominal mesh is a portion of translucent pliable fabric like mesh with attached red-pink soft tissue measuring 14.5 x 9.4 x 0.3 cm. Specimen submitted for gross only examination. Floridalma Recio Annie C. POSTERIOR RECTUS SHEATH Received in formalin labeled posterior rectus sheath is an aggregate of red-pink slightly rubbery tissue measuring 4.3 x 2.7 x 0.6 cm. The specimen is serially sectioned and sales representative gas service sections are submitted in cassette C1. Cold Time: 57m Floridalma Valencia 10:44 AM EDT [facility] Note: A resident was involved in the service. I attest I examined the relevant preparations for the specimens and confirmed the diagnosis or interpretation. 10:44 AM EDT [facility] Tissue Topography unknown / Unknown 06/07/2025 2:04 PM EDT 06/07/2025 3:25 PM EDT Comment:Pre-op diagnosis: Infected hernioplasty mesh, initial encounter ([facility]) [T85.79XA] Tissue specimen (specimen) Topography unknown / Unknown 06/07/2025 2:05 PM EDT 06/07/2025 3:25 PM EDT Comment:Pre-op diagnosis: Infected hernioplasty mesh, initial encounter ([facility]) [T85.79XA] Tissue specimen (specimen) Topography unknown / Unknown 06/07/2025 2:28 PM EDT 06/07/2025 3:25 PM EDT Comment:Pre-op diagnosis: Infected hernioplasty mesh, initial encounter ([facility]) [T85.79XA] us Anais Easton MD LAB PATHOLOGY ORDERABLES Final Result [facility] [address] [place] [address] * Type and Screen (06/07/2025 11:48 AM EDT) ABO/Rh A Positive 06/07/2025 11:54 AM EDT BLOOD BANK Antibody Screen Negative 06/07/2025 11:54 AM EDT BLOOD BANK Specimen Expiration 06/10/2025 23:59 06/07/2025 11:54 AM EDT BLOOD BANK Blood Venous blood specimen / Unknown Venipuncture / Unknown 06/07/2025 11:48 AM EDT 06/07/2025 11:54 AM EDT Anais Easotn MD LAB BLOOD BANK TEST ORDER MARU Final Result Performing Organization Address [facility] Hospital/[facility] Co de Phone Number BLOOD BANK [address] [place] [address], * POCT glucose meter (06/07/2025 11:46 AM EDT) POCT Glucose 96 74 - 99 mg/dL [...] 06/07/2025 11:47 AM EDT [facility] Waist Cutter ID Carrie Brandt 025 11:47 AM EDT [facility] Device ID [id number] 06/07/2025 11:47 AM EDT [facility] Specimen Type POC Venous 06/07/2025 11:47 AM EDT [facility] Blood Venous blood specimen / Unknown 06/07/2025 11:46 AM EDT 06/07/2025 11:47 AM EDT Anais Easton MD LAB POINT OF CARE TEST DOCKED DEVICE UNSOLICITED RESULTS Final Result Performing Organization Address City/[facility] Co de Phone Number [facility] [address] [place] [address] documented in this encounter Visit Diagnoses Diagnosis Infected hernioplasty mesh, initial encounter (CMS/HCC) Infected hernioplasty mesh, initial encounter (CMS/HCC) documented in this encounter Admitting Diagnoses Diagnosis Infected hernioplasty mesh (CMS/HCC) Infected hernioplasty mesh, initial encounter (CMS/HCC) documented in this encounter Administered Medications Inactive [...] 5,000 Units R ight Upper Arm (Back) Wily powder 1 packet 1 packet, Oral, 3 times daily, First dose on 06/08/25 at 0900, Until Discontinued, Routine Given 06/08/2025 10:13 AM EDT 1 packet methocarbamol (Robaxin) tablet 750 mg 750 mg, [...] Given 06/08/2025 9:28 AM EDT 40 mg sodium chloride 0.9 % flush 10 mL [...] 1800, Until Discontinued, Routine, Recovery(Phase II-Outpatient)/On Unit(Inpatient) 1859 (Given - Provider: Amanda Ramsey RN)2313 (Given - Provider: Annie Farris - Comment: scheduled) 0509 (Given - Provider: Annie Farris - Comment: scheduled)1140 (Given - Provider: Wilder Tucker, DEREK) atomoxetine (Strattera) capsule 100 mg 100 mg, Oral, Daily, First dose on Tue06/07/25 at 1615, Until Discontinued, Recovery(Phase II-Outpatient)/On Unit(Inpatient) 1806 (Not Given - Provider: Pratima Bermudez, DEREK - Reason: Patient/family refused) 0930 (Not Given - Provider: Wilder Tucker, DEREK - Reason: Patient/family refused) cefOXitin (Mefoxin) injection [...] Oral, 3 times daily, First dose on 06/08/25 at 0900, Until Discontinued, Routine 1013 (Given - Provid er: Wilder Tucker RN)1600 (Canceled Entry - Provider: Automatic Discharge [...] 1215, Routine 1145 (Given - Provider: Radha Philip, DEREK) sodium chloride 0.9 % flush 10 mL [...] >/= 4 1515 (Given - Provider: Pratima Bermudez, DEREK)1525 (See Alternative - Provider: Pratima Bermudez RN)1535 (See Alternative - Provider: Pratima Bermudez RN)1545 (See Alternative - Provider: Pratima Bermudez, DEREK)1555 (See Alternative - Provider: Pratima Bermudez RN) [...] 4 refractory to 2 previous opioid injection 1620 (Given - Provider: Pratima Bermudez RN) melatonin [...] PRN, Starting on Tue06/07/25 at 1516, Until Tue06/07/25 at 2036, Routine, Recovery(Phase II-Outpatient)/On Unit(Inpatient), severe pain 1901 (Given - Provider: Amanda Ramsey RN) oxyCODONE [...] needed, Starting on Tue06/07/25 at 1125, Until Tue06/07/25 at 1851, Routine, Holding - Preprocedure, line [...] Time MRSA Comment:Added from external infection. Source: [facility]. 10/07/2023 Assessment Noted Time A Body Mass Index follow-up plan has been documented for the patient 06/08/2025 11:07 AM EDT documented as of this encounter Care Teams Apprenticeship Training Representative Relationship Specialty Start Date End Date Day, AMANDA Gaston [address] [place] [address] PCP - General 12/26/20 documented as of this encounter
--- OUTSIDE RECORDS SUMMARY | 2025-06-07 11:29 | XMS_ITS | Encounter Summary ---
Author Organization Healthcare Address [address] [place] [address] Care Team Providers Care Bottom Man Name Role Phone Day, Marilin PATEL Primary Care Provider [phone] Reason for Visit * Auth/Cert (Routine) Specialty Diagnoses / Procedures Referred By Contac t Referred To Contact Diagnoses Infected hernioplasty mesh, initial encounter ([facility]/HCC) Infected hernioplasty mesh, initial encounter ([facility]) [T85.79XA] Procedures WV EXPLORATORY OF ABDOMEN WV DEBRIDEMENT, SKIN, SUB-Q TISSUE,=<20 SQ CM WV RPR AA HERNIA 1ST 3-10 CM REDUCIBLE LAPAROTOMY, EXPLORATORY IRRIGATION AND DEBRIDEMENT, ABDOMEN REPAIR, HERNIA, INCISIONAL DetAnais luu MD [address] [facility] [address] [place] [address] Phone: tel: fax: [facility] [address] [place] [address] Phone: tel: Referral ID Status Reason Start Date Expiration Date Visits Re quested Visits Authorized [id number] 1 3 Encounter Details Date Type Department Care Team (Late st Contact Info) Description 06/07/2025 12:29 PM EDT Anesthesia Event [facility] [address] [place] [address] Deniz Arias MD [address] [place] [address] Natalie Bolden CRNA [address] [place] [address] Anesthesia Record Procedure Summary Procedure Name Responsible [...] acknowledgement of understanding. 1514 An Stop Meds Name Total midazolam (Versed) injection 1 mg/mL 2 m g fentaNYL (Sublimaze) injection 50 mcg/mL 100 mcg lidocaine PF (Xylocaine-MPF) 2% 100 mg propofol (Diprivan) injection 10 mg/mL 2 00 mg rocuronium (ZeMuron) injection 10 mg/mL 145 mg dexamethasone (Decadron) injection 4 mg/ mL 4 mg HYDROmorphone PF (Dilaudid) injection 1 mg/mL 0.5 mg ePHEDrine injection prefilled syringe 5 mg/mL 10 mg ondansetron (Zofran) injection 2 mg/mL 4 mg sugammadex (Bridion) injection 100 mg/mL 200 mg 0.25% ropivacaine 60 mL cefOXitin (Mefoxin) injection 2 g 2 g lactated Ringer's infusion 1,800 mL * Agents Name O2 Sevoflurane * Blood No blood administrations on file. [...] on file documented as of this encounter Functional Status * Calculated C-SSRS [...] Farris RN documented as of this encounter Miscellaneous Notes * Anesthesia Postprocedure Evaluation - Griselda Taylor MD - 06/07/2025 3:14 PM EDT Patient: Brandon Barfield Anesthesia Type: general Vitals Value Taken Time BP 121/68 06/07/25 15:11 Temp 97.5 06/07/25 15:14 Pulse 73 06/07/25 15:13 Resp 18 06/07/25 15:13 SpO2 96 % 06/07/25 15:13 Vitals shown include unfiled device data. Anesthesia Post Evaluation Patient location during evaluation: PACU Patient participation: complete - patient participated Level of consciousness: awake Pain management: adequate (pain score 0-3) Airway patency: natural airway Cardiovascular status: acceptable and hemodynamically stable Respiratory status: acceptable, face mask and nonlabored ventilation Hydration status: acceptable Nausea/Vomiting: No No notable events documented. Cosigned by Josh Dias MD at 06/07/2025 6:20 PM EDT Associated attestation - Josh Dias MD - 06/07/2025 6:20 PM EDT I agree with the findings and care plan documented in the postprocedure evaluation note. * Anesthesia Procedure Notes - Griselda Taylor MD - 06/07/2025 1:32 PM EDT Associated Order(s): Peripheral IV Peripheral IV Date/Time: 06/07/2025 12:58 PM Placement Needle size: 18 G Location: hand Site prep: alcohol Technique: anatomical landmarks Attempts: 1 Cosigned by Deniz Arias MD at 06/08/2025 6:51 AM EDT Associated attestation - Deniz Arias MD - 06/08/2025 6:51 AM EDT I was present during all critical and paige portions of the procedure(s) and immediately available [facility] services the entire duration. See resident note for details. * Anesthesia Procedure Notes - Griselda Taylor MD - 06/07/2025 1:32 PM EDT Associated Order(s): Airway Airway Date/Time: 06/07/2025 12:54 PM Reason: elective Airway not difficult General Information and Staff Patient location during procedure: OR Anesthesiologist: Deniz Arias MD Resident: Griselda Taylor MD Performed: Resident Patient Condition Indications for airway management: anesthesia Patient position: sniffing Final Airway Details Final airway type: endotracheal airway Successful airway: ETT Cuffed: yes Successful intubation technique: direct laryngoscopy Adjuncts used in placement: intubating stylet and cricoid pressure Endotracheal tube insertion site: oral Blade: Ron Blade size: #3 ETT size (mm): 7.5 Cormack-Lehane Classification: grade I - full view of glottis Placement verified by: chest auscultation and capnometry Measured from: lips ETT to lips (cm): 21 Additional Comments Atraumatic. No change to dentition. Cosigned by Deniz Arias MD at 06/08/2025 6:51 AM EDT Associated attestation - Deniz Arias MD - 06/08/2025 6:51 AM EDT I was present during all critical and paige portions of the procedure(s) and immediately available [facility] services the entire duration. See resident note for details. * Anesthesia Procedure Notes - Deandre Gottlieb MD - 06/07/2025 1:02 PM EDT Associated Order(s): Peripheral Block Peripheral Block Patient location during procedure: OR Start time: 06/07/2025 12:55 PM End time: 06/07/2025 12:59 PM Reason for block: post-op pain management Block is at surgeon's request Staffing Performed: Resident Anesthesiologist: Josh Dias MD Resident: Deandre Gottlieb MD Preanesthetic Checklist Completed: patient identified, IV checked, site marked, risks and benefits discussed, surgical consent, monitors and equipment checked, pre-op evaluation and timeout performed Peripheral Block Patient position: supine Prep: ChloraPrep Patient monitoring: continuous pulse ox, heart rate and cardiac monitor technician Anesthesia block type: rectus sheath. Laterality: left and right Injection technique: single-shot Guidance: ultrasound guided Ultrasound used for needle placement AND ultrasound image retained Needle Needle gauge: 20g. Needle length: 4in. Needle localization: anatomical landmarks and ultrasound guidance Medications Administered: 0.25% ropivacaine - Injection 60 mL - 06/07/2025 12:55:00 PM Assessment Injection assessment: negative aspiration for heme, local visualized surrounding nerve on ultrasound and incremental injection Paresthesia pain: none Heart rate change: no Slow fractionated injection: yes Additional Notes Patient was placed in supine position. A linear ultrasound probe was placed on anteromedial aspect of the abdomen. The relevant neurovascular and muscle anatomy was identified including the rectus abdominus m., and the external oblique m., internal oblique m., and transversus abdominus m. laterally. A large area of skin encompassing the intended needle insertion site was cleansed using chloraprep.The skin was anesthetized by creating a skin wheal with lidocaine. The block needle was inserted through anesthetized skin and advanced from lateral to medial using an in-plane technique with ultrasound guidance. The needle was advanced under direct visualization trans muscularly through the rectusabdominus m. with the needle tip localized in the posterior rectus sheath. Local anesthetic was injected in 5 mL aliquots with incremental aspiration negative for heme, 60cc was injected into into the posterior rectus sheath. A total of 60cc of 0.25% Ropivacaine without adjunct was utilized for the block. The needle was removed from the patient. The patient tolerated the procedure well, with no obvious complications. Cosigned by Josh Dias MD at 06/07/2025 1:36 PM EDT Associated attestation - Josh Dias MD - 06/07/2025 1:36 PM EDT I was present during all critical and paige portions of the procedure(s) and immediately available [facility] services the entire duration. See resident note for details. * Anesthesia Preprocedure Evaluation - Deniz Arias MD - 06/07/2025 11:27 AM EDT Images from the original note were not included. Patient: Brandon Barfield is a 40 y.o. male with body mass index is unknown because there is no height or weighton file. who presents with Infected hernioplasty mesh (CMS/HCC), now for LAPAROTOMY, EXPLORATORY (N/A), IRRIGATION AND DEBRIDEMENT, ABDOMEN (N/A), REPAIR, HERNIA, INCISIONAL (N/A) Procedure Information Date/Time: 06/07/25 1105 Procedures: LAPAROTOMY, EXPLORATORY IRRIGATION AND DEBRIDEMENT, ABDOMEN REPAIR, HERNIA, INCISIONAL Location: 2OR 06 / [facility] OR Surgeons: Anais Easton MD Relevant Problems Cardio (+) Essential hypertension GI (+) Acid reflux (+) Diarrhea (+) Obesity /Renal (+) Blood in urine ALLERGIES Allergies[1] NPO STATUS Past Medical History[2] AIRWAY HISTORY Airway Detailed Review Displaying the 20 most recent records Date Difficult Airway Blade Size ETT Size C-L Class Final Type Intubation Method 09/21/23 - - - - - - MEDICATIONS Outpatient Current Outpatient Medications Medication Instructions atomoxetine (STRATTERA) 100 mg, Daily chlorhexidine (Hibiclens) 4 % external solution Hibiclens shower the day before surgery and the morning of surgery. emtricitabine-tenofovir disoproxil fumarate (Truvada) 200-300 MG tablet 1 tablet, Oral, Daily famotidine (PEPCID) 20 mg, Daily FLUoxetine (PROzac) 20 MG capsule 1 capsule, Daily fluticasone (Flonase) 50 MCG/ACT nasal spray 1 spray per nostril every day as needed allergies ibuprofen 400 mg magnesium oxide (Mag-Ox) 400 (240 Mg) MG tablet Melatonin 5 MG tablet tablet take 1-2 tab every night as needed insomnia Mucus Relief 600 MG 12 hr tablet take 1 tab 2 times a day as needed cough/congestion Multiple Vitamin (Multivitamin) tablet 1 tablet, Daily mupirocin (Bactroban) 2 % ointment Apply small amount into each nostril twice daily starting 5 daysbefore surgery. Nutritional Supplements (Impact Advanced Recovery) liquid Drink 2 cartons a day starting 5 days before surgery. SSICOLON. Auto Sub for Ensure Surgery if Impact not available. omeprazole (PriLOSEC) [address] capsule daily. SudoGest 30 MG tablet TAKE 2 Tablets by mouth BY MOUTH TWICE DAILY NEEDED FOR congestion traZODone (Desyrel) 50 MG tablet take 1/2 tab - 1 tab every night Scheduled Current Scheduled Medications[3] PRNs Current PRN Medications[4] SURGICAL HX: Surgical History[5] SOCIAL HX: Social History[6] OBJECTIVE DATA LABS Lab Results Component Value Date WBC 9.31 05/30/2025 HGB 15.8 05/30/2025 HCT 48.8 05/30/2025 MCV 92 05/30/2025 PLT 261 05/30/2025 Lab Results Component Value Date CALCIUM 9.0 05/30/2025 BUN 8 05/30/2025 CREATININE 0.91 05/30/2025 BCR 9 05/30/2025 NA 140 05/30/2025 K 4.6 05/30/2025 CL 104 05/30/2025 CO2 25 05/30/2025 CA 9.7 04/27/2016 Type and Screen No results found for: ABO No results found for: HGBA1C Lab Results Component Value Date GLUCOSE 81 05/30/2025 ABG No results found for: PHART , OOY6VBH , PO2ART , SO2ART , BEART , CSQ0AXK , HCTART , SODIUMART , POTASSIUMART , POCTCL , POCGLU , IONCALART , LACTATE Lab Results Component Value Date HCTSYR 45.7 02/08/2025 KSYR 4.0 02/08/2025 CLSYR 106 02/08/2025 GLUSYR 94 02/08/2025 CAION 4.7 02/08/2025 ECHO No echocardiogram results found for the past 12 months PFTs No results found for: DXJ5PBH , THP7NRMQ , WUV0XJT , FVCPRED BP Readings from Last 5 Encounters: 06/07/25 124/80 05/30/25 114/74 05/09/25 108/73 04/04/25 107/71 03/18/25 108/73 Physical Exam Airway Mallampati: I Mouth opening: normal TM distance: >3 FB Neck ROM: full Cardiovascular Rhythm: regular Rate: normal The right radial pulse is 2+. Dental (+) partials Pulmonary Breath sounds clear to auscultation (+) decreased breath sounds Neurological Oriented: normal to time, normal to place and normal to person and oriented to person, place and time Skin - normal exam Skin: warm Turgor: normal Musculoskeletal - normal exam Extremities -normal exam Handedness: right-handed Anesthesia Plan ASA 2 Plan was reviewed with: resident Anesthesia technique(s) discussed with the patient/family: general Anesthesia plan agreed upon was: general Comment: TAP BLOCKS Anesthetic plan and risks discussed with patient. ROS Anesthesia: Date of last anesthetic: 10/08 history of previous anesthesia. Anesthesia ROS additional comments: PT DENIES HX OF PROBLEMS WITH GA Cardiovascular: hypertension: is well controlled. Exercise tolerance is 2 flights of stairs. Cardio additional comments: PT DENIES HX OF CP, [place], CHF. Respiratory: COPD: breathing at baseline. Respiratory ROS additional comments: VAPES, FORMER SMOKER HEENT: chipped teeth and missing teeth. Neurological: Neuro additional comments: BORDERLINE PERSONALITY DISORDER Musculoskeletal: arthritis. Integumentary: Negative skin ROS. Gastrointestinal: GERD: well controlled.obese. Genitourinary: Negative ROS. Hematological/Lymphatic: negative hematology/oncology ROS. Endocrine/Metabolic: Negative endocrine ROS. [1] No Known Allergies [2] Past Medical History: Diagnosis Date Colon polyp Personal history of other diseases of the digestive system History of esophageal reflux Personal history of other diseases of the musculoskeletal system and connective tissue History of scoliosis Personal history of other infectious and parasitic diseases History of Helicobacter infection [3] heparin (porcine), 5,000 Units, Subcutaneous, q8h JENARO Povidone-Iodine, 1 Application, Nasal, Once Insert peripheral IV, , , Once AND Saline lock IV, , , Once AND sodium chloride, 10 mL, Intravenous, q12h AND sodium chloride, 10 mL, Intravenous, PRN [4] PRN medications: Insert peripheral IV AND Saline lock IV AND sodium chloride AND sodium chloride [5] Past Surgical History: Procedure Laterality Date ABDOMINAL SURGERY total of 10 surgeries, ileostomy and reversal COLECTOMY HERNIA REPAIR x2, mesh [6] Social History Tobacco Use Smoking status: Former Types: Cigarettes Passive exposure: Never Smokeless tobacco: Former Tobacco comments: Smoked up to 2 PPD for of/on 20 years and quit 2022 Vaping Use Vaping status: Some Days Substances: Nicotine, Flavoring Devices: Refillable tank Substance Use Topics Alcohol use: Never Drug use: Never documented in this encounter Plan of Treatment Upcoming Encounters Date Type Department Care Team (Late st Contact Info) Description 06/20/2025 11:00 AM EST Office Visit [facility] [address] [place] [address] Douglas Sanders, AMANDA [address] [facility] [address] [place] [address] 06/25/2025 11:30 AM EST Office Visit [facility] General Surgery [address], [address] [place] [address] Dominique Garcia, JAMAR [address] [place] [address] documented as of this encounter Procedures Procedure Name Priority Date/Time Associated Diagnosis Comments ANESTHESIA PERIPHERAL IV PLACEMENT Routine 06/07/2025 12:58 PM EDT PB POINT OF CARE IMAGING PLACEHOLDER Routine 06/07/2025 12:55 PM EDT PB ANESTHESIA PLACEHOLDER Routine 06/07/2025 12:54 PM EDT WV AN ELECTIVE ENDOTRACHEAL AIRWAY Routine 06/07/2025 12:54 PM EDT documented in this encounter Results * Peripheral IV (06/07/2025 12:58 PM EDT) Narrative Deniz Arias MD - 06/07/2025 12:58 PM EDT Deniz Arias MD 06/08/2025 6:51 AM Peripheral IV Date/Time: 06/07/2025 12:58 PM Placement Needle size: 18 G Location: hand Site prep: alcohol Technique: anatomical landmarks Attempts: 1 us Deniz Arias MD ANESTHESIA ORDERABLES Final Res ult * PB POINT OF CARE IMAGING PLACEHOLDER (06/07/2025 12:55 PM EDT) Narrative Josh Dias MD - 06/07/2025 12:55 PM EDT Josh Dias MD 06/07/2025 1:36 PM Peripheral Block Patient location during procedure: OR Start time: 06/07/2025 12:55 PM End time: 06/07/2025 12:59 PM Reason for block: post-op pain management Block is at surgeon's request Staffing Performed: Resident Anesthesiologist: Josh Dias MD Resident: Deandre Gottlieb MD Preanesthetic Checklist Completed: patient identified, IV checked, site marked, risks and benefits discussed, surgical consent, monitors and equipment checked, pre-op evaluation and timeout performed Peripheral Block Patient position: supine Prep: ChloraPrep Patient monitoring: continuous pulse ox, heart rate and cardiac monitor technician Anesthesia block type: rectus sheath. Laterality: left and right Injection technique: single-shot Guidance: ultrasound guided Ultrasound used for needle placement AND ultrasound image retained Needle Needle gauge: 20g. Needle length: 4in. Needle localization: anatomical landmarks and ultrasound guidance Medications Administered: 0.25% ropivacaine - Injection 60 mL - 06/07/2025 12:55:00 PM Assessment Injection assessment: negative aspiration for heme, local visualized surrounding nerve on ultrasound and incremental injection Paresthesia pain: none Heart rate change: no Slow fractionated injection: yes Additional Notes Patient was placed in supine position. A linear ultrasound probe was placed on anteromedial aspect of the abdomen. The relevant neurovascular and muscle anatomy was identified including the rectus abdominus m., and the external oblique m., internal oblique m., and transversus abdominus m. laterally. A large area of skin encompassing the intended needle insertion site was cleansed using chloraprep. The skin was anesthetized by creating a skin wheal with lidocaine. The block needle was inserted through anesthetized skin and advanced from lateral to medial using an in-plane technique with ultrasound guidance. The needle was advanced under direct visualization trans muscularly through the rectus abdominus m. with the needle tip localized in the posterior rectus sheath. Local anesthetic was injected in 5 mL aliquots with incremental aspiration negative for heme, 60cc was injected into into the posterior rectus sheath. A total of 60cc of 0.25% Ropivacaine without adjunct was utilized for the block. The needle was removed from the patient. The patient tolerated the procedure well, with no obvious complications. us Josh Dias MD ANESTHESIA ORDERABLES Final Resu lt * WV AN ELECTIVE ENDOTRACHEAL AIRWAY, PB ANESTHESIA PLACEHOLDER (06/07/2025 12:54 PM EDT) Narrative Deniz Arias MD - 06/07/2025 12:54 PM EDT Deniz Arias MD 06/08/2025 6:51 AM Airway Date/Time: 06/07/2025 12:54 PM Reason: elective Airway not difficult General Information and Staff Patient location during procedure: OR Anesthesiologist: Deniz Arias MD Resident: Griselda Taylor MD Performed: Resident Patient Condition Indications for airway management: anesthesia Patient position: sniffing Final Airway Details Final airway type: endotracheal airway Successful airway: ETT Cuffed: yes Successful intubation technique: direct laryngoscopy Adjuncts used in placement: intubating stylet and cricoid pressure Endotracheal tube insertion site: oral Blade: Ron Blade size: #3 ETT size (mm): 7.5 Cormack-Lehane Classification: grade I - full view of glottis Placement verified by: chest auscultation and capnometry Measured from: lips ETT to lips (cm): 21 Additional Comments Atraumatic. No change to dentition. Deniz Arais MD ANESTHESIA ORDERABLES Final Res ult documented in this encounter Visit Diagnoses Not on filedocumented in this encounter Administered Medications Inactive Administered Medications - up to 3 most recent administrations Medication Order MAR Action Action Date Dose Rate Site cefOXitin (Mefoxin) injection 2 g 2 g, Intravenous, Once, 1 dose, On Tue06/07/25 at 1430, Routine, Anesthesia Intraprocedure Given 06/07/2025 1:00 PM EDT 2 g dexamethasone (Decadron) injection Intravenous, As needed, Starting on Tue06/07/25 at 1305, Until Tue06/07/25 at 1514, Routine, Anesthesia Intraprocedure Given 06/07/2025 1:05 PM EDT 4 mg ePHEDrine Sulfate (Akovaz) injection Intravenous, As needed, Starting on Tue06/07/25 at 1333, Until Tue06/07/25 at 1514, Routine, Anesthesia Intraprocedure Given 06/07/2025 2:09 PM EDT 5 mg Given 06/07/2025 1:33 PM EDT 5 mg fentaNYL (Sublimaze) injection Intravenous, As needed, Starting on Tue06/07/25 at 1251, Until Tue06/07/25 at 1514, Routine, Anesthesia Intraprocedure Given 06/07/2025 1:55 PM EDT 25 mcg Given 06/07/2025 12:51 PM EDT 75 mcg HYDROmorphone PF (Dilaudid) injection Intravenous, As needed, Starting on Tue06/07/25 at 1455, Until Tue06/07/25 at 1514, Routine, Anesthesia Intraprocedure Given 06/07/2025 2:48 PM EDT 0.5 mg lactated Ringer's infusion Intravenous, Continuous PRN, Starting on Tue06/07/25 at 1235, Until Tue06/07/25 at 1514, Routine New Bag 06/07/2025 1:31 PM EDT New Bag 06/07/2025 12:35 PM EDT lidocaine PF (Xylocaine) 2 % injection Intravenous, As needed, Starting on Tue06/07/25 at 1251, Until Tue06/07/25 at 1514, Routine, Anesthesia Intraprocedure Given 06/07/2025 12:51 PM EDT 10 0 mg midazolam (Versed) injection Intravenous, As needed, Starting on Tue06/07/25 at 1229, Until Tue06/07/25 at 1514, Routine, Anesthesia Intraprocedure Given 06/07/2025 12:29 PM EDT 2 mg ondansetron (Zofran) injection Intravenous, As needed, Starting on Tue06/07/25 at 1437, Until Tue06/07/25 at 1514, Routine, Anesthesia Intraprocedure Given 06/07/2025 2:37 PM EDT 4 m g propofol (Diprivan) injection Intravenous, As needed, Starting on Tue06/07/25 at 1251, Until Tue06/07/25 at 1514, Routine, Anesthesia Intraprocedure Given 06/07/2025 12:51 PM EDT 20 0 mg rocuronium (ZeMuron) injection Intravenous, As needed, Starting on Tue06/07/25 at 1251, Until Tue06/07/25 at 1514, Routine, Anesthesia Intraprocedure Given 06/07/2025 2:24 PM EDT 30 mg Given 06/07/2025 1:53 PM EDT 15 mg Given 06/07/2025 1:35 PM EDT 20 mg ropivacaine (Naropin) injection Injection, Once PRN Procedure, Starting on Tue06/07/25 at 1255, Until Tue06/07/25 at 1255, Routine, Anesthesia Intraprocedure Given 06/07/2025 12:55 PM EDT 60 mL sugammadex (Bridion) 100 MG/ML injection Intravenous, As needed, Starting on Tue06/07/25 at 1502, Until Tue06/07/25 at 1514, Routine, Anesthesia Intraprocedure Given 06/07/2025 3:02 PM EDT 200 mg documented in this encounter Additional Health Concerns Assessment Noted Time A Body Mass Index follow-up plan has been documented for the patient 06/08/2025 11:07 AM EDT documented as of this encounter Care Teams Bottom Man Relationship Specialty Start Date End Date Day, AMANDA [address] [place] [address] PCP - General 12/26/20 documented as of this encounter
[2025-06-17 13:42] VITALS: BP 113/74; PULSE 78; RESP 22; TEMP 37.3; O2SAT 100; BMI 33.0
[2025-06-17 13:48] VITALS: BP 113/74; PULSE 73; RESP 22; O2SAT 100
--- OUTSIDE RECORDS SUMMARY | 2025-06-17 14:06 | XMS_ITS | Encounter Summary ---
Author Organization Healthcare Address [address] [place] [address] Care Team Providers Care Hand Straightener Name Role Phone Day, Marilin PATEL Primary Care Provider [phone] Encounter Details Date Type Department Care Team (Late st Contact Info) Description 06/10/2025 Telephone [facility] [address] [place] [address] Jimena Suero, RN [facility] A 7 T2 [facility] Social History Tobacco Use Types Packs/Day Years [...] on file documented as of this encounter Miscellaneous Notes * Telephone Encounter - Jimena Suero RN - 06/10/2025 11:41 AM EDT Called patient. Scheduled for follow up per E email request. 06/25/25 1000 with Jose Garcia APRN for staple removal. Patient aware and agreeable. documented in this encounter Plan of Treatment Upcoming Encounters Date Type Department Care Team (Late st Contact Info) Description 06/20/2025 11:00 AM EST Office Visit [facility] [address] [facility] [place] [address] Douglas Sanders PA [address] [place] [address] 06/25/2025 11:30 AM EST Office Visit [facility] General Surgery [address], [address] [place] [address] Dominique Garcia APRN [address] [place] [address] documented as of this encounter Visit Diagnoses Not on filedocumented in this encounter Additional Health Concerns Infection Onset Date Last Indicated Resolved Time MRSA Comment:Added from external infection. Source: [facility]. 10/07/2023 Assessment Noted Time A Body Mass Index follow-up plan has been documented for the patient 06/08/2025 11:07 AM EDT documented as of this encounter Care Teams Hand Straightener Relationship Specialty Start Date End Date Day, AMANDA [address] [place] [address] PCP - General 12/26/20 documented as of this encounter
--- OUTSIDE RECORDS SUMMARY | 2025-06-17 14:06 | XMS_ITS | Encounter Summary ---
Author Organization [facility] Address [address] [place] [address] Care Team Providers Care Technology Specialist Name Role Phone Day, Marilin PATEL Primary Care Provider [phone] Encounter Details Date Type Department Care Team (Latest Contact Info) Description 06/07/2025 Travel Social History Tobacco Use Types Packs/Day Years [...] Month) No 06/07/2025 8:00 PM EDT Rosario Farris, RN 6. Suicidal Behavior (Lifetime) No 06/07/2025 8:00 PM EDT Rosario Farris, RN documented as of this encounter Plan of Treatment Upcoming Encounters Date Type Department Care Team (Late st Contact Info) Description 06/20/2025 11:00 AM EST Office Visit [facility] [address] [facility] [place] [address] Douglas Sanders PA [address] [facility] [address] [place] [address] 06/25/2025 11:30 AM EST Office Visit [facility] General Surgery [address], [address] [place] [address] Dominique Garcia, COUNTER INTELLIGENCE TECHNICIAN [address] [place] [address] documented as of this encounter Visit Diagnoses Not on filedocumented in this encounter Additional Health Concerns Infection Onset Date Last Indicated Resolved Time MRSA Comment:Added from external infection. Source: [facility]. 10/07/2023 Assessment Noted Time A Body Mass Index follow-up plan has been documented for the patient 06/08/2025 11:07 AM EDT documented as of this encounter Care Teams Technology Specialist Relationship Specialty Start Date End Date Korin, AMANDA Gaston [address] [place] [address] PCP - General 12/26/20 documented as of this encounter
--- OUTSIDE RECORDS SUMMARY | 2025-06-17 14:06 | XMS_ITS ---
Author Organization [facility] Address [address] [place] [address] Phone Care Team Providers Care Library Assistant Name Role Phone Lindsay Conklin APRN Primary Care Physician [phone] Conditions or Problems Problem Name Problem Code Onset Date Status Entry Date Provider Comment Standard Description Annotate Counseling for nutrition Z71.3 (ICD-10-CM) 08/25 Inactive 08/25 Idalmis Reid APRN Dietary counseling and surveillance Immunization update 962138453 (SNOMED CT) 08/25 Active 08/25 Idalmis Reid APRN Active or passive immunization Umbilical hernia 883039285 (SNOMED CT) 08/25 Active 08/25 Idalmis Reid APRN Umbilical hernia Depression 01591376 (SNOMED CT) 08/25 Active 08/25 Daya Santiago MA Depressive disorder Body mass index (BMI) 32.0-32.9; adult Z68.32 (ICD-10-CM) 08/22 Active 08/22 Lindsay Conklin APRN Body mass index [BMI] 32.0-32.9, adult High risk medication management 512249051 (SNOMED CT) 08/22 Active 08/22 Lindsay Conklin APRN High risk drug monitoring Substance Abuse 05025491 (SNOMED CT) 08/22 Active 08/22 Lindsay Conklin APRN Substance abuse Alcohol Abuse 17380679 (SNOMED CT) 08/22 Active 08/22 Lindsay Conklin APRN Harmful pattern of use of alcohol Adjustment Disorder 50413297 (SNOMED CT) 08/22 Active 08/22 Lindsay Conklin APRN Adjustment disorder Anxiety Disorder 452878537 (SNOMED CT) 08/22 Active 08/22 Lindsay Conklin APRN Anxiety disorder Bipolar depression 511139736 (SNOMED CT) 08/22 Active 08/22 Lindsay Conklin APRN Bipolar affective disorder, current episode depression Medications Medication Instructions Start Date Stop Date Generic Name NDC Provider VRAYLAR 1.5 MG CAPS Take one capsule by mouth once every evening 8 CARIPRAZINE HCL [id number] Lindsay Conklin APRN PROZAC 20 MG CAPS TAKE 1 CAPSULE BY MOUTH EVERY MORNING 8 FLUOXETINE HCL 23497365680 Lindsay Conklin APRN WELLBUTRIN XL 300 MG [id number] TAKE 1 TABLET BY MOUTH ONCE A DAY 8 BUPROPION HCL 70059527563 Lindsay Conklin APRN Medications Administered No information available. Allergies, Adverse Reactions, Alerts Observed no known allergies at Results Date Name Value Unit Range Flag Description Lab Report: LIPID PANEL WITH REFLEX TO DIRECT LDL, LIPID PANEL WITH REFL ... HGBA1C 5.4 % OF TOTAL HGB % <5.7 N Hemoglobin A1c/Hemoglobin, total in Blood - % T4, FREE 1.2 ng/dL 0.8-1.8 N Thyroxine (T 4) free [Mass/volume] in Serum or Plasma TSH 0.38 u[iU]/mL 0.40-4.50 L Thyrotropi n [Units/volume] in Serum or Plasma BASO % MANU 0.6 % N basophils as percent of blood leukocytes, manual count EOS % MANU 0.1 % N eosinophil s as percent of blood leukocytes, manual count MONOCYTE % 5.8 % N Monocytes/ 100 leukocytes in Blood by Automated count LYMPH% P BLD 20.4 % N lymphocy brigette as percent of blood leukocytes PMN % 73.1 % N Neutrophils/1 00 leukocytes in Blood by Automated count ABS BASOS 97 {Cells}/u L 0-200 N Basophils [#/volume] in Blood ABS EOS 16 {Cells}/u L 15-500 N Eosinophils [#/volume] in Blood ABS MONOS 934 {Cells}/u L 200-950 N Monocytes [#/volume] in Blood ABSLYMPHCT 3284 {Cells}/u L 850-3900 N Lymphocytes [#/volume] in Blood ABS NEUTROPH 31229 CELLS/UL 10*3/uL 1935-1444 H Neutrophils [#/volume] in Blood MPV 9.5 fL 7.5-12.5 N Platelet meghan n volume [Entitic volume] in Blood by Rashawn PLATELETK/UL 433 THOUSAND/UL 10*3/uL 140-400 H platelet count RDW 13.0 % 11.0-15.0 N Erythrocyte distribution width [Ratio] by Automated count OL-MCHC 34.0 g/dL 32.0-36.0 N mean corpus cular hemoglobin concentration, rbc MCH 30.3 pg 27.0-33.0 N MCH [Entiti c mass] by Automated count MCV 89.2 fL 80.0-100.0 N MCV [Entit ic volume] by Automated count HCT 49.4 % 38.5-50.0 N Hematocrit [Volume Fraction] of Blood by Automated count HGB 16.8 g/dL 13.2-17.1 N Hemoglobin [Mass/volume] in Blood RBC M/UL 5.54 MILLION/UL 10*6/uL 4.20-5.80 N re d blood count WBC CT BLOOD 16.1 10*3/uL 3.8-10.8 H leukocy te count, blood SGPT (ALT) 17 U/L 9-46 N Alanine aminotransferase [Enzymatic activity/volume] in Serum or Plasma SGOT (AST) 18 U/L 10-40 N Aspartate aminotransferase [Enzymatic activity/volume] in Serum or Plasma ALK PHOS 84 U/L 40-115 N Alkaline yessica sphatase [Enzymatic activity/volume] in Blood BILI TOTAL 0.2 mg/dL 0.2-1.2 N Bilirubin. total [Mass/volume] in Serum or Plasma A/G RATIO 1.7 (calc) 1.0-2.5 N Albumin/ Globulin [Mass Ratio] in Serum or Plasma GLOBULIN TOT 2.5 G/DL (CALC) g/dL 1.9-3.7 N Globulin [Mass/volume] in Serum ALBUMIN EOP 4.3 g/dL 3.6-5.1 N Albumin [ Mass/volume] in Serum or Plasma by Electrophoresis PROTEIN, TOT 6.8 g/dL 6.1-8.1 N Protein [Mass/volume] in Serum or Plasma CALCIUM 9.0 mg/dL 8.6-10.3 N Calcium [Moles/volume] in Serum or Plasma CO2 25 mmol/L 20-32 N Carbon dioxid e, total [Moles/volume] in Venous blood CHLORIDE BLD 105 mmol/L 98-110 N chloride , blood POTASSIUM 4.8 mmol/L 3.5-5.3 N Potassium [Moles/volume] in Serum or Plasma SODIUM 139 mmol/L 135-146 N Sodium [Moles /volume] in Serum or Plasma BUN/CREAT NOT APPLICABLE (calc) 6-22 Urea nitrogen/Creatinine [Mass Ratio] in Serum or Plasma EGFR IF AFA 110 mL/min/1. 73m2 >OR = 60 N Glomerular filtratio n rate/1.73 sq M.predicted among blacks [Volume Rate/Area] in Serum, Plasma or Blood by Creatinine-based formula (MDRD) EGFR 95 mL/min/1. 73m2 >OR = 60 N Glomerular filtratio n rate/1.73 sq M.predicted [Volume Rate/Area] in Serum, Plasma or Blood by Creatinine-based formula (MDRD) CREATININE 1.02 mg/dL 0.60-1.35 N Creatini ne [Mass/volume] in Serum or Plasma BUN 14 mg/dL 7-25 N Urea nitrogen [Mass/volume] in Serum or Plasma GLUCOSE SER 70 mg/dL 65-139 N Glucose [ Mass/volume] in Serum or Plasma HEP C AB REACTIVE NON-REACTI A Hepatiti s C virus Ab [Presence] in Serum HB CORE IGM NON-REACTIVE NON-REACTI N H epatitis B virus core IgG+IgM Ab [Presence] in Serum or Plasma by Immunoassay HBSAG NON-REACTIVE NON-REACTI N Hepat itis B virus surface Ag [Presence] in Serum or Plasma by Confirmatory method ANTI-HAV IGM NON-REACTIVE NON-REACTI N Hepatitis A virus IgM Ab [Presence] in Serum or Plasma by Immunoassay NON-HDL CHOL 140 MG/DL (CALC) mg/dL <130 H cholesterol, non -HDL, total CHOL/HDL % 4.8 (calc) <5.0 N cholest art/HDL ratio, serum, percent LDL 99 MG/DL (CALC) mg/dL N Jo Ann sterol in LDL [Mass/volume] in Serum or Plasma - mg/dL TRIGLYC TOT 311 mg/dL <150 H Triglycer vicenta [Mass/volume] in Serum or Plasma - mg/dL HDL 37 mg/dL >40 L Cholesterol i n HDL [Mass/volume] in Serum or Plasma - mg/dL CHOLESTEROL 177 mg/dL <200 N Cholester ol [Mass/volume] in Serum or Plasma - mg/dL Plan of Care Type Date Detail Referral Gastroenterology Referral General Ronda Gerard, [address], [facility] [address], [place], [address] Referral excluded fr om report: Pending order T1 Lipid Panel Pending order T1 HGBA1c Pending order T1 CBC with diff Pending order T1 CMP Pending order T1 Acute Hepatit s Panel Pending order T1 TSH reflex to free T4 Patient education Medications Procedures Code Procedure Name Date Entry Date [id number] Medication Reconciliation GASTRO GEN Gastroenterology Referral General CPT-3074F Most recent systolic blood pressure <130 mm Hg CPT-3078F Most recent diastoli c blood pressure <80 mm Hg CPT-19156 Fluzone Quadrivalent Preservative Free prefilled syringe (36 mos +) CPT-92080 IMADM >18YR IM [address] VAC/TOXOID 08/25 [id number] Dietary management education/guidance/counseling [facility] 18390 T1 Lipid Panel [facility] 496 T1 HGBA1c [facility] 6399 T1 CBC with diff [facility] 80055 T1 CMP [facility] 46174 T1 Acute Hepatits Panel 2019 [facility] 07111 T1 TSH reflex to free T4 202 CPT-3074F Most recent systolic blood pressure <130 mm Hg CPT-3078F Most recent diastoli c blood pressure <80 mm Hg [id number] Medication Reconciliation Vital Signs Date Name Value Unit Description BMI (Body Mass Index) 30.98 kg/m2 Bod y Mass Index (Ratio) Body Temperature 98.1 [degF] temperat ure E&M Body Temperature 36.72 Aby temperat ure in centigrade E&M BP Diastolic 72 mm[Hg] blood pressu re, diastolic BP Systolic 104 mm[Hg] blood pressur e, systolic BSA (Body Surface Area) 2.10 b radha surface area Heart Rate 132 /min pulse rate Height 68 [in_us] height E&M Height 172.72 cm height in cent imeters E&M Respiratory Rate 18 /min respirat ory rate E&M Weight Measured 203 [lb_av] weight E& M Weight Measured 203 [lb_av] weight E& M Weight Measured 92.27 kg weight in kilograms E&M Immunizations Vaccine Administration Date Standard Description CVX Co de Dose PRIVATE Fluzone Quadrivalent Prefilled Syringe 0.5 ML for 6 mos - 64 years PRIVATE Fluzone Quadrivalent Prefilled Syringe 0.5 ML for 6 mos - 64 years 150 0.5 mL Advance Directives No information available.
--- OUTSIDE RECORDS SUMMARY | 2025-06-17 14:06 | XMS_ITS | Encounter Summary ---
Author Organization [facility] Address [address] [place] [address] Care Team Providers Care Nuclear Process Engineer Name Role Phone Day, Marilin PATEL Primary Care Provider [phone] Encounter Details Date Type Department Care Team (Late st Contact Info) Description 06/07/2023 Orders Only External Location [address] [place] [phone] Provider, External Social History Tobacco Use Types Packs/Day Years Used Date Smoking Tobacco: Every Day Alcohol Use Standard Drinks/Week Comments No 0 (1 standard drink = 0.6 oz pur e alcohol) Sex and Gender Information Value Date Recorded Sex Assigned at Not on file Legal Sex Male 8:42 PM EDT Gender Identity Male 06/11/2025 1:33 PM EDT Sexual Orientation Not on file documented as of this encounter Plan of Treatment Upcoming Encounters Date Type Department Care Team (Late Contact Info) Description 06/20/2025 11:00 AM EST Office Visit [facility] [address] [place] [address] Douglas Sanders PA [address] [facility] [address] [place] [address] 06/25/2025 11:30 AM EST Office Visit [facility] General Surgery [address], [address] [place] [address] Dominique Garcia APRN [address] [place] [address] documented as of this encounter Procedures Procedure Name Priority Date/Time Associated Diagnosis Comments CT OUTSIDE IMAGES 06/07/2023 2:45 PM EDT documented in this encounter Results * CT OUTSIDE IMAGES (06/07/2023 2:45 PM EDT) Anatomical Region Laterality Modality Computed Tomogra phy 06/07/2023 2:45 PM EDT us External Provider IMG CT PROCEDURES Final Result documented in this encounter Visit Diagnoses Not on filedocumented in this encounter Additional Health Concerns Infection Onset Date Last Indicated Resolved Time MRSA Comment:Added from external infection. Source: [facility]. 10/07/2023 documented as of this encounter Care Teams Nuclear Process Engineer Relationship Specialty Start Date End Date Korin, AMANDA Gaston [address] [place] [address] PCP - General 12/26/20 documented as of this encounter
--- OUTSIDE RECORDS SUMMARY | 2025-06-17 14:06 | XMS_ITS | Encounter Summary ---
Author Organization [facility] Address [address] [place] [address] Care Team Providers Care Television Production Assistant Name Role Phone Day, Marilin PATEL Primary Care Provider Encounter Details Date Type Department Care Team (Late Contact Info) Description 05/29/2025 [facility]phone [facility] [address], [address] [place] [address] Bhupinder Bower MD [address] [place] [address] Social History Tobacco Use Types Packs/Day Years [...] Description 06/20/2025 11:00 AM EST Office Visit [facility] [address] [facility] [place] [address] Douglas Sanders PA [address] [facility] [address] [place] [address] 06/25/2025 11:30 AM EST Office Visit [facility] General Surgery [address], [address]st [place] [address] Dominique Garcia, VOCATIONAL REHABILITATION SUPERVISOR [address] [place] [address] documented as of this encounter Visit Diagnoses Not on filedocumented in this encounter Additional Health Concerns Assessment Noted Time A Body Mass Index follow-up plan has been documented for the patient 05/10/2025 9:54 AM EDT documented as of this encounter Care Teams Television Production Assistant Relationship Specialty Start Date End Date Marilin Langley PA [address] [place] [address] PCP - General 12/26/20 documented as of this encounter
--- OUTSIDE RECORDS SUMMARY | 2025-06-17 14:06 | XMS_ITS | Encounter Summary ---
Author Organization [facility] Address [address] [place] [address] Care Team Providers Care General Manager Road Production Name Role Phone Marilin Langley Primary Care Provider [phone] Encounter Details Date Type Department Care Team (Late st Contact Info) Description 03/19/2025 Results Follow-Up [facility] [address] [place] [address] Douglas Sanders PA [address] [facility] [address] [place] [address] Social History Tobacco Use Types Packs/Day Years Used Date Smoking Tobacco: Every Day Smokeless Tobacco: Former Alcohol Use Standard Drinks/Week Comments No 0 [...] as of this encounter Functional Status * AUDIT-C Score [...] Penny Gama documented as of this encounter Plan of Treatment Upcoming Encounters Date Type Department Care Team (Late st Contact Info) Description 06/20/2025 11:00 AM EST Office Visit [facility] [address] [place] [address] Douglas Sanders PA [address] [facility] [address] [place] [address] 06/25/2025 11:30 AM EST Office Visit [facility] General Surgery [address], [address] [place] [address] Dominique Garcia APRN [address] [place] [address] documented as of this encounter Visit Diagnoses Not on filedocumented in this encounter Additional Health Concerns Assessment Noted Time A Body Mass Index follow-up plan has been documented for the patient 03/21/2025 11:01 AM EDT documented as of this encounter Care Teams General Manager Road Production Relationship Specialty Start Date End Date Marilin Langley PA [address] [place] [address] PCP - General 12/26/20 documented as of this encounter
--- OUTSIDE RECORDS SUMMARY | 2025-06-17 14:06 | XMS_ITS | Encounter Summary ---
Author Organization Healthcare Address [address] [place] [address] Care Team Providers Care Equipment Mechanic Name Role Phone Day, Marilin PATEL Primary Care Provider [phone] Encounter Details Date Type Department Care Team (Latest Contact Info) Description 05/08/2025 Travel Social History Tobacco Use Types Packs/Day [...] Description 06/20/2025 11:00 AM EST Office Visit [facility] [address] [place] [address] Douglas Sanders PA [address] [facility] [address] [place] [address] 06/25/2025 11:30 AM EST Office Visit [facility] General Surgery [address], [address] [place] [address] Dominique Garcia, JAMAR [address] [place] [address] documented as of this encounter Visit Diagnoses Not on filedocumented in this encounter Additional Health Concerns Assessment Noted Time A Body Mass Index follow-up plan has been documented for the patient 04/13/2025 2:30 PM EDT documented as of this encounter Care Teams Equipment Mechanic Relationship Specialty Start Date End Date Day, AMANDA Gaston [address] [place] [address] PCP - General 12/26/20 documented as of this encounter
--- OUTSIDE RECORDS SUMMARY | 2025-06-17 14:06 | XMS_ITS | Encounter Summary ---
Author Organization [facility] Address [address] [place] [address] Care Team Providers Care Manager Therapy Name Role Phone Day, Marilin PATEL Primary Care Provider Encounter Details Date Type Department Care Team (Latest Contact Info) Description 05/30/2025 Travel Social History Tobacco Use Types Packs/Day [...] Description 06/20/2025 11:00 AM EST Office Visit [facility] [address] [place] [address] Douglas Sanders PA [address] [facility] [address] [place] [address] 06/25/2025 11:30 AM EST Office Visit [facility] General Surgery [address], [address] [place] [address] Dominique Garcia, REAL ESTATE ACCOUNTANT [address] [place] [address] documented as of this encounter Visit Diagnoses Not on filedocumented in this encounter Additional Health Concerns Assessment Noted Time A Body Mass Index follow-up plan has been documented for the patient 05/10/2025 9:54 AM EDT documented as of this encounter Care Teams Manager Therapy Relationship Specialty Start Date End Date Day, AMANDA Gaston [address] [place] [address] PCP - General 12/26/20 documented as of this encounter
--- OUTSIDE RECORDS SUMMARY | 2025-06-17 14:06 | XMS_ITS | Encounter Summary ---
Author Organization [facility] Address [address] [place] [address] Care Team Providers Care Narcotics And Vice Detective Name Role Phone Day, Marilin PATEL Primary Care Provider [phone] Encounter Details Date Type Department Care Team (Latest Contact Info) Description 05/09/2025 Travel Social History Tobacco Use Types Packs/Day [...] does not drink 05/09/2025 1:04 PM EDT Wise, Marilin R Q3: How often do you have six or more drinks on one occasion? Never 05/09/2025 1:04 PM EDT Penny Gama documented as of this encounter Plan of Treatment Upcoming Encounters Date Type Department Care Team (Late st Contact Info) Description 06/20/2025 11:00 AM EST Office Visit [facility] [address] [facility] [place] [address] Douglas Sanders PA [address] [facility] [address] [place] [address] 06/25/2025 11:30 AM EST Office Visit [facility] General Surgery [address], [address] [place] [address] Dominique Garcia, AIRFRAME TECHNICAL OFFICER [address] [place] [address] documented as of this encounter Visit Diagnoses Not on filedocumented in this encounter Additional Health Concerns Assessment Noted Time A Body Mass Index follow-up plan has been documented for the patient 05/10/2025 9:54 AM EDT documented as of this encounter Care Teams Narcotics And Vice Detective Relationship Specialty Start Date End Date Day, AMANDA Gaston [address] [place] [address] PCP - General 12/26/20 documented as of this encounter
--- OUTSIDE RECORDS SUMMARY | 2025-06-17 14:06 | XMS_ITS | Encounter Summary ---
Author Organization Healthcare Address [address] [place] [address] Care Team Providers Care Mosaic Floor Layer Name Role Phone Day, Marilin PATEL Primary Care Provider [phone] Encounter Details Date Type Department Care Team (Late st Contact Info) Description 05/10/2023 Orders Only External Location [address] [place] [address] Provider, External Social History Tobacco Use Types [...] Description 06/20/2025 11:00 AM EST Office Visit [facility] [address] [place] [address] Douglas Sanders PA [address] [facility] [address] [place] [address] 06/25/2025 11:30 AM EST Office Visit [facility] General Surgery [address], [address] [place] [address] Dominique Garcia APRN [address] [place] [address] documented as of this encounter Procedures Procedure Name Priority Date/Time Associated Diagnosis Comments US OUTSIDE IMAGES 05/10/2023 11:41 AM EDT documented in this encounter Results * US OUTSIDE IMAGES (05/10/2023 11:41 AM EDT) Anatomical Region Laterality Modality Ultrasound 05/10/2023 11:4 1 AM EDT us External Provider IMG US PROCEDURES Final Result documented in this encounter Visit Diagnoses Not on filedocumented in this encounter Additional Health Concerns Infection Onset Date Last Indicated Resolved Time MRSA Comment:Added from external infection. Source: [facility]. 10/07/2023 documented as of this encounter Care Teams Mosaic Floor Layer Relationship Specialty Start Date End Date Korin, AMANDA Gaston [address] [place] [address] PCP - General 12/26/20 documented as of this encounter
--- OUTSIDE RECORDS SUMMARY | 2025-06-17 14:06 | XMS_ITS | Encounter Summary ---
Author Organization [facility] Address [address] [place] [address] Care Team Providers Care Coil Tier Name Role Phone Day, Marilin PATEL Primary Care Provider [phone] Encounter Details Date Type Department Care Team (Late st Contact Info) Description 04/19/2025 Telephone [facility] General Surgery [address], [address] [place] [address] Bella Guerra RN [place] [phone] Social History Tobacco Use Types Packs/Day Years [...] encounter Miscellaneous Notes * Telephone Encounter - Bella Guerra RN - 04/19/2025 8:36 AM EDT Called pt to fu on missing CT scan after reschedule. Pt states he got called in to work and is so far behind at work that he is not able to miss work, due to finances. Pt wants to get CT because not feeling any better. He will call and get rescheduled hopefully during a time that he can go without missing work. documented in this encounter Plan of Treatment Upcoming Encounters Date Type Department Care Team (Late st Contact Info) Description 06/20/2025 11:00 AM EST Office Visit [facility] [address] [place] [address] Douglas Sanders PA [address] [facility] [address] [place] [address] 06/25/2025 11:30 AM EST Office Visit [facility] General Surgery [address], [address] [place] [address] Dominique Garcia, KETTLE HAND [address] [place] [address] documented as of this encounter Visit Diagnoses Not on filedocumented in this encounter Additional Health Concerns Assessment Noted Time A Body Mass Index follow-up plan has been documented for the patient 04/13/2025 2:30 PM EDT documented as of this encounter Care Teams Coil Tier Relationship Specialty Start Date End Date Day, AMANDA Gaston [address] [place] [address] PCP - General 12/26/20 documented as of this encounter
--- OUTSIDE RECORDS SUMMARY | 2025-06-17 14:06 | XMS_ITS | Encounter Summary ---
Author Organization Healthcare Address [address] [place] [address] Care Team Providers Care City Editor Name Role Phone Day, Marilin PATEL Primary Care Provider [phone] Encounter Details Date Type Department Care Team (Latest Contact Info) Description 04/23/2025 Travel Social History Tobacco Use Types Packs/Day [...] AM EST Office Visit [facility] [address] [place] [address] Douglas Sanders PA [address] [facility] [address] [place] [address] 06/25/2025 11:30 AM EST Office Visit [facility] General Surgery [address] [place] [address] Dominique Garcia, JAMAR [address] [place] [address] documented as of this encounter Visit Diagnoses Not on filedocumented in this encounter Additional Health Concerns Assessment Noted Time A Body Mass Index follow-up plan has been documented for the patient 04/13/2025 2:30 PM EDT documented as of this encounter Care Teams City Editor Relationship Specialty Start Date End Date Day, AMANDA Gaston [address] [place] [id number] PCP - General 12/26/20 documented as of this encounter
--- OUTSIDE RECORDS SUMMARY | 2025-06-17 14:06 | XMS_ITS | Encounter Summary ---
Author Organization [facility] Address [address] [place] [address] Care Team Providers Care Production Assembly Supervisor Name Role Phone Day, Marilin PATEL Primary Care Provider [phone] Reason for Referral * Consultation (Routine) - Authorized Specialty Diagnoses / Procedures Referred By [place] Referred To Contact Anesthesiology Diagnoses Infected prosthetic mesh of abdominal wall, subsequent encounter Anais Easton MD [address] [facility] [address] [place] [address] Phone: tel: fax: [facility] [address] [place] [address] Phone: tel: Referral ID Status Reason Start Date Expiration Date Visits Requested Visits Authorized [id number] Authorized Consult and Treat 05/29/2025 11/28/2026 1 1 Encounter Details Date Type Department Care Team (Late st Contact Info) Description 05/29/2025 Orders Only [facility] General Surgery [address] [place] [address] Janiya Portillo RN TRAUMA & ACUTE CARE SURG [facility] ACUTE T1 Infected prosthetic mesh of abdominal wall, subsequent encounter (Primary Dx) Social History Tobacco Use Types Packs/Day Years [...] as of this encounter Miscellaneous Notes * Addendum Note - Janiya Portillo RN - 05/29/2025 8:40 AM EDTAddended by: JANIYA PORTILLO on: 05/29/2025 08:54 AM Modules accepted: Orders * Progress Notes - Janiya Portillo RN - 05/29/2025 8:40 AM EDT Called pt and reviewed pre op instructions. Provided pt with a printed copy on [employer]. Pt sts he has transportation issues. He requested meds be sent to [facility] on [address] as he can walk there. Explained that [facility] would need to come from a [place] pharmacy but pt sts he does not have transportation to make it to any [place] pharmacy. Will ask pharmacy to mail it to him as he has no transportation.He does not voice any questions or concerns at this time. documented in this encounter Plan of Treatment Upcoming Encounters Date Type Department Care Team (Late st Contact Info) Description 06/20/2025 11:00 AM EST Office Visit [facility] [address] [place] [address] Douglas Sanders PA [address] [facility] [address] [place] [address] 06/25/2025 11:30 AM EST Office Visit [facility] General Surgery [address] [place] [address] Dominique Garcia, ASSOCIATE ARTISTIC DIRECTOR [address] [place] [address] Scheduled Referrals Name Type Priority Associated Diagnoses Order Schedule Ambulatory referral to Anesthesiology Outpatient Referral Routine Infected prosthetic mesh of abdominal wall, subsequent encounter Expected: 05/29/2025 (Approximate), Expires: 11/27/2026 documented as of this encounter Visit Diagnoses Diagnosis Infected prosthetic mesh of abdominal wall, subsequent encounter- Primary documented in this encounter Additional Health Concerns Assessment Noted Time A Body Mass Index follow-up plan has been documented for the patient 05/10/2025 9:54 AM EDT documented as of this encounter Care Teams Production Assembly Supervisor Relationship Specialty Start Date End Date Korin, AMANDA Gaston [address] [place] [address] PCP - General 12/26/20 documented as of this encounter
--- OUTSIDE RECORDS SUMMARY | 2025-06-17 14:07 | XMS_ITS | Clinical Summary ---
Author Organization [facility] Address [address] [place] [address] Care Team Providers Care Curator Of Manuscripts Name Role Phone Day, Marilin PATEL Primary Care Provider [phone] Allergies No known active allergies Medications atomoxetine (Strattera) 100 MG capsule Take 1 capsule by mouth daily. Active famotidine (Pepcid) 20 MG tablet Take 1 tablet by mouth Daily. Active omeprazole (PriLOSEC) [address] capsule daily. 015 Active emtricitabine-tenof ovir disoproxil fumarate (Truvada) 200-300 MG tabletIndications:C ontact with and (suspected) exposure to human immunodeficiency virus (hiv) Take 1 tablet by mouth daily. 90 tablet 025 Active magnesium oxide (Mag-Ox) 400 (240 Mg) MG tablet 025 Active Multiple Vitamin (Multivitamin) tablet Take 1 tablet by mouth daily. 025 Active fluticasone (Flonase) 50 MCG/ACT nasal spray 1 spray per nostril every day as needed allergies 025 Active Mucus Relief 600 MG 12 hr tablet take 1 tab 2 times a day as needed cough/congest ion 025 Active Melatonin 5 MG tablet tablet take 1-2 tab every night as needed insomnia 025 Active traZODone (Desyrel) 50 MG tablet take 1/2 tab - 1 tab every night 025 Active mupirocin (Bactroban) 2 % ointmentIndications :Infected prosthetic mesh of abdominal wall, subsequent encounter Apply small amount into each nostril twice daily starting 5 days before surgery. 15 g Active acetaminophen (Tylenol) 500 MG tablet Take 2 tablets by mouth every 6 hours. 100 tablet Active docusate sodium 100 MG capsule Take 100 mg by mouth 2 times a day. 30 capsule Active methocarbamol (Robaxin) 750 MG tablet Take 1 tablet by mouth every 8 hours. 42 tablet Active ondansetron ODT (Zofran-ODT) 4 MG disintegrating tablet Dissolve 1 tablet on the tongue every 6 hours as needed for nausea or vomiting. 20 tablet Active oxyCODONE (Roxicodone) 5 MG immediate release tablet Take 1 tablet by mouth every 4 hours as needed for moderate pain. May take up to 2 tablets (10 mg total) by mouth every 4 (four) hours as needed for pain 25 tablet Active naloxone (Narcan) 4 mg/0.1 mL nasal spray 1. Give 1 spray in nostril for no/slow breathing or cannot wake after opioid use 2. Call 911 3. Repeat in other nostril if symptoms continue 1 each Active FLUoxetine (PROzac) 20 MG capsule Take 1 capsule by mouth Daily. 2024 Discontinued ibuprofen 200 MG tablet Take 2 tablets by mouth. 2024 Discontinued SudoGest 30 MG tablet TAKE 2 Tablets by mouth BY MOUTH TWICE DAILY NEEDED FOR congestion 2024 Discontinued chlorhexidine (Hibiclens) 4 % external solutionIndications :Infected prosthetic mesh of abdominal wall, subsequent encounter Hibiclens shower the day before surgery and the morning of surgery. 118 mL 2024 Discontinued mupirocin (Bactroban) 2 % ointmentIndications :Infected prosthetic mesh of abdominal wall, subsequent encounter Apply small amount into each nostril twice daily starting 5 days before surgery. 15 g 2024 Discontinued Nutritional Supplements (Impact Advanced Recovery) liquidIndications:I nfected prosthetic mesh of abdominal wall, subsequent encounter Drink 2 cartons a day starting 5 days before surgery. SSICOLON. Auto Sub for Ensure Surgery if Impact not available. 250 mL 2024 Discontinued chlorhexidine (Hibiclens) 4 % external solutionIndications :Infected prosthetic mesh of abdominal wall, subsequent encounter Hibiclens shower the day before surgery and the morning of surgery. 118 mL 025 2024 Discontinued(S top Taking at Discharge) Nutritional Supplements (Impact Advanced Recovery) liquidIndications:I nfected prosthetic mesh of abdominal wall, subsequent encounter Drink 2 cartons a day starting 5 days before surgery. SSICOLON. Auto Sub for Ensure Surgery if Impact not available. 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 Pallidum Ab w reflex Hepatitis C Ab Hepatitis A Ab and Hepatitis B sAg, sAb, cAb - follow up in 12 weeks, sooner if needed Intra-abdominal abscess 09/21/2024 Subcutaneous nodule of abdominal wall 09/18/2024 Rhinitis 08/31/2024 Blood in urine 07/25/2024 Lesion of penis 07/25/2024 Obesity 07/25/2024 Attention deficit hyperactivity disorder 024 Right lower quadrant pain 07/06/2024 Diverticulosis of colon 07/05/2024 Borderline personality disorder 05/09/2024 Essential hypertension 05/09/2024 Flatulence, eructation and gas pain 05/09/2024 Insomnia 05/09/2024 Molluscum contagiosum infection 05/09/2024 Acid reflux 12/21/2023 Anxiety 12/21/2023 Bipolar disorder 12/21/2023 Chronic constipation 12/21/2023 Depressive disorder 12/21/2023 Diverticulitis 12/21/2023 Seasonal allergies 12/21/2023 Tinea corporis 12/21/2023 Recurrent ventral incisional hernia 07/28/2023 Degeneration, intervertebral disc, lumbar 2014 Back pain 05/09/2015 Resolved Problems Problem Noted Date Diagnosed Date Resolved Date Diarrhea 07/25/2024 06/09/2025 Acute maxillary sinusitis 07/06/2024 Encounters Date Type Department Care Team Description 06/10/2025 Telephone [facility] General Surgery [address], [address] [place] [address] Jimena Suero, RN 06/07/2025 12:29 PM EDT Anesthesia Event [facility] [address] [place] [phone] Deniz Arias MD Bumgardner, Sarah M, PA 06/07/2025 11:05 AM EDT - 06/07/2025 2:20 PM EDT Surgery [facility] [address] [place] [phone] Anais Easton MD LAPAROTOMY, EXPLORATORY [06872 (CPT )] 06/07/2025 9:44 AM EDT - 06/08/2025 2:13 PM EDT Hospital Encounter [facility] Inpatient [address] [place] [address] Anais Easton MD Infected hernioplasty mesh, initial encounter ([facility]) Discharge Disposition: Home or Self Care 06/07/2025 Travel 05/30/2025 2:45 PM EDT Pre-Admission Testing [facility] Anesthesia [address] [place] [address] Infected hernioplasty mesh, subsequent encounter [T85.79XD] (Primary Dx); Preop testing 05/30/2025 Travel 05/29/2025 Telephone [facility] Pre-op Clinic [address], [address] [place] [phone] Bhupinder Bower MD 05/29/2025 Orders Only [facility] General Surgery [address], [address] [place] [address] Myra Samayoa, RN Infected prosthetic mesh of abdominal wall, subsequent encounter (Primary Dx) 05/09/2025 1:45 PM EDT Office Visit [facility] General Surgery [address], [address] [place] [address] Anais Easton MD Infected prosthetic mesh of abdominal wall, subsequent encounter (Primary Dx); Recurrent ventral incisional hernia; Intra-abdominal abscess (CMS/HCC) 05/09/2025 Travel 05/08/2025 Travel 04/23/2025 8:51 AM EDT - 04/23/2025 11:59 PM EDT Hospital Encounter [facility] Radiology [address] [place] [address] Intra-abdominal abscess (CMS/HCC) Discharge Disposition: Home or Self Care 04/23/2025 Travel 04/19/2025 Telephone [facility] General Surgery [address], [address] [place] [address] Bella Guerra RN 04/04/2025 9:00 AM EDT Consult [facility] Surgery [address], [address] [place] [address] Anais Easton MD Intra-abdominal abscess (CMS/HCC) (Primary Dx); Right lower quadrant pain; Recurrent ventral incisional hernia 04/04/2025 Travel 03/19/2025 Results Follow-Up [address] [phone] Douglas Sanders PA 03/18/2025 11:00 AM EDT Office Visit [address] [phone] Douglas Sanders PA Contact with and (suspected) exposure to human immunodeficiency virus (hiv) (Primary Dx) 03/18/2025 Patient Outreach [address] [phone] Caterina Robles 03/18/2025 Travel from Last 3 Months Immunizations Immunization Administration Dates Next Due Hep A, Adult 06/27/2019 Hep B, Adolescent/High Risk 1998 Hep B, Unspecified 01/30/1996,12/26/1995 Influenza, injectable, quadrivalent 05/17/2023 Influenza, injectable, quadrivalent, preservativ e free 08/25/2019,06/27/2016 MMR 12/26/1995 TD (adult), 2 Lf tetanus tox oid, preservative free, adsorbed 1998 Tdap 05/17/2023 Family History Medical History Relation Name Comments Diabetes Father Hypertension Father Anesthesia problems Neg Hx Malig Hyperthermia Neg Hx Relation Name Status Comments Father Social History Tobacco Use Types Packs/Day Years [...] PM EDT Sexual Orientation Not on file Last Filed Vital Signs Vital Sign Reading [...] Mass Index 34 06/07/2025 8:00 PM EDT Plan of Treatment Upcoming Encounters Date Type Department Care Team (Late st Contact Info) Description 06/20/2025 11:00 AM EST Office Visit [facility] [address] [place] [address] Douglas aSnders PA [address] [place] [address] 06/25/2025 11:30 AM EST Office Visit [facility] General Surgery [address], [address] [place] [address] Dominique Garcia, VETERINARY PHARMACOLOGIST [address] [place] [address] Health Maintenance Due Date Last Done Comments [facility]-Depression Screening 1984 [facility]-Infant/Child/Adol SDOH Screenings 1984 [facility]-Varicella Vaccines (1 of 2 - 13+ 2-dose series) 01/22/1997 [facility]- SDOH Screenings 01/22/2002 [facility]-Adult SDOH Screenings 01/22/2002 HPV Vaccines (1 - 3-dose SCDM series) 01/22/2011 [id number] Vaccine (2 - season) 2025 12/17/2020 [facility]-Influenza Vaccine (#1) 04/15/202505/17, 08/25/2019, 06/27/2016 [facility]-DTaP,Tdap,and Td Vaccines (3 - Td or Tdap) 05/17/2033 05/17/2023, 1998 [facility]-Zoster Vaccines (1 of 2) 01/22/2034 [facility]-Hepatitis B Vaccines Completed 998, 01/30/1996, 12/26/1995 [facility]-Hepatitis A Vaccines Aged Out 06/27/2019 No longer eligible based on patient's age to complete this topic [facility]-Hepatitis C Screening Completed 02/08/2025 [facility]-HIV Screening Completed 03/18/2025, 02/08/2025 [facility]-Obesity Intervention Completed 025, 05/09/2025, 04/04/2025, Additional history exists [facility]-HIB Vaccines Aged Out No longer e ligible based on patient's age to complete this topic [facility]-IPV Vaccines Aged Out No longer e ligible based on patient's age to complete this topic [facility]-Pneumococcal Vaccine: Pediatrics (0 to 5 Years) and At-Risk Patients (6 to 49 Years) Aged Out No longer eligible based on patient's age to complete this topic [facility]-Rotavirus Vaccines Aged Out No lo nger eligible based on patient's age to complete this topic Procedures Procedure Name Priority Date/Time Associated Diagnosis Comments PHOSPHORUS, PLASMA Routine 06/08/2025 4: 48 AM EDT MAGNESIUM, PLASMA Routine 06/08/2025 4:4 8 AM EDT BASIC METABOLIC PANEL, PLASMA Routine 06/08/2025 4:48 AM EDT CBC W/O DIFFERENTIAL Routine 06/08/2025 4:48 AM EDT SURGICAL PATHOLOGY EXAM Routine 06/07/2025 2:04 PM EDT Infected hernioplasty mesh, initial encounter ([facility]) ANESTHESIA PERIPHERAL IV PLACEMENT Routine 06/07/2025 12:58 PM EDT PB POINT OF CARE IMAGING PLACEHOLDER Routine 06/07/2025 12:55 PM EDT PB ANESTHESIA PLACEHOLDER Routine 06/07/2025 12:54 PM EDT VT AN ELECTIVE ENDOTRACHEAL AIRWAY Routine 06/07/2025 12:54 PM EDT VT RPR AA HERNIA 1ST 3-10 CM REDUCIBLE 06/07/2025 12:20 PM EDT Infected hernioplasty mesh, initial encounter (CMS/HCC) VT DEBRIDEMENT, SKIN, SUB-Q TISSUE,=<20 SQ CM 06/07/2025 12:20 PM EDT Infected hernioplasty mesh, initial encounter ([facility]) VT EXPLORATORY OF ABDOMEN 06/07/2025 12:20 PM EDT Infected hernioplasty mesh, initial encounter ([facility]) TYPE AND SCREEN Routine 06/07/2025 11:48 AM EDT POCT GLUCOSE METER UNSOLICITED RESULTS Routine 06/07/2025 11:46 AM EDT CBC W/O DIFFERENTIAL Routine 05/30/2025 2:55 PM EDT Preop testing COMPREHENSIVE METABOLIC PANEL, PLASMA Routine 05/30/2025 2:55 PM EDT Preop testing CT ABDOMEN PELVIS W IV CONTRAST Routine 04/23/2025 9:57 AM EDT Intra-abdominal abscess ([facility]) CHLAMYDIA TRACHOMATIS DNA BY PCR Routine 03/18/2025 11:37 AM EDT Contact with and (suspected) exposure to human immunodeficiency virus (hiv) NEISSERIA GONORRHEA DNA BY PCR Routine 03/18/2025 11:37 AM EDT Contact with and (suspected) exposure to human immunodeficiency virus (hiv) HIV 1/2 ANTIBODY/ANTIGEN SCREEN WITH REFLEX TO HIV I/II DIFFERENTIATION Routine 03/18/2025 11:34 AM EDT Contact with and (suspected) exposure to human immunodeficiency virus (hiv) BASIC METABOLIC PANEL, PLASMA Routine 03/18/2025 11:34 AM EDT Contact with and (suspected) exposure to human immunodeficiency virus (hiv) HIV 1/2 ANTIBODY/ANTIGEN SCREEN W/REFLEX TO HIV 1/2 ANTIBODY DIFFERENTIATION Routine 03/18/2025 11:34 AM EDT Contact with and (suspected) exposure to human immunodeficiency virus (hiv) HEPATITIS A ANTIBODY IGG Routine 03/18/2025 11:34 AM EDT Contact with and (suspected) exposure to human immunodeficiency virus (hiv) HEPATITIS B CORE TOTAL AB (IGG AND IGM) Routine 03/18/2025 11:34 AM EDT Contact with and (suspected) exposure to human immunodeficiency virus (hiv) HEPATITIS B SURFACE ANTIBODY, QUANTITATIVE Routine 03/18/2025 11:34 AM EDT Contact with and (suspected) exposure to human immunodeficiency virus (hiv) HEPATITIS B SURFACE ANTIGEN Routine 03/18/2025 11:34 AM EDT Contact with and (suspected) exposure to human immunodeficiency virus (hiv) TREPONEMA PALLIDUM (SYPHILIS) ANTIBODIES WITH REFLEX TO RPR AND RPR TITER (THOSE WITH NO KNOWN SYPHILIS) Routine 03/18/2025 11:34 AM EDT Contact with and (suspected) exposure to human immunodeficiency virus (hiv) HEPATITIS C ANTIBODY - ED W/REFLEX TO HCV QUANT PCR STAT 02/08/2025 2:26 PM EDT from Last 3 Months or Most Recently Relevant to Health Maintenance Results * (ABNORMAL) CBC (06/08/2025 4:48 AM EDT) Only the most recent of2 resultswithin the time period is included. WBC Count 12.30(H) 3.70 - 10.30 10*3/uL LAB HEMATOLOGY METHOD 06/08/2025 5:05 AM EDT [facility] RBC Count 4.58(L) 4.60 - 6.10 10*6/uL LAB HEMATOLOGY METHOD 06/08/2025 5:05 AM EDT [facility] HGB 14.1 13.7 - 17.5 g/dL LAB HEMATOLOGY METHOD 06/08/2025 5:05 AM EDT [facility] HCT 40.7 40.0 - 51.0 % LAB HEMATOLOGY METHOD 06/08/2025 5:05 AM EDT [facility] Platelet Count 291 155 - 369 10*3/uL LAB HEMATOLOGY METHOD 06/08/2025 5:05 AM EDT [facility] MCV 89 79 - 98 fL LAB HEMATOLOGY METHOD 06/08/2025 5:05 AM EDT [facility] MCH 30.8 26.0 - 32.0 pg LAB HEMATOLOGY METHOD 06/08/2025 5:05 AM EDT [facility] MCHC 34.6 30.7 - 35.5 g/dL LAB HEMATOLOGY METHOD 06/08/2025 5:05 AM EDT [facility] RDW 13.1 11.5 - 14.5 % LAB HEMATOLOGY METHOD 06/08/2025 5:05 AM EDT [facility] MPV 9.3 8.8 - 12.5 fL LAB HEMATOLOGY METHOD 06/08/2025 5:05 AM EDT [facility] nRBC 0.0 <=0.0 per 100 WBCs LAB HEMATOLOGY METHOD 06/08/2025 5:05 AM EDT [facility] Blood Venous blood specimen / Unknown Venipuncture / Unknown 06/08/2025 4:48 AM EDT 06/08/2025 4:57 AM EDT Anais Easton MD LAB BLOOD ORDERABLES Rebecca l Result [facility] [address] [place] [address] * Phosphorus (06/08/2025 4:48 AM EDT) Phosphorus, Plasma 4.5 2.5 - 4.5 mg/dL 06/08/2025 5:29 AM EDT [facility] Blood Venous blood specimen / Unknown Venipuncture / Unknown 06/08/2025 4:48 AM EDT 06/08/2025 4:57 AM EDT us Anais Easton MD LAB BLOOD ORDERABLES Rebecca l Result [facility] [address] [place] [address] * Magnesium (06/08/2025 4:48 AM EDT) Magnesium, Plasma 2.0 1.9 - 2.4 mg/dL 06/08/2025 5:29 AM EDT [facility] Blood Venous blood specimen / Unknown Venipuncture / Unknown 06/08/2025 4:48 AM EDT 06/08/2025 4:57 AM EDT us Anais Easton MD LAB BLOOD ORDERABLES Rebecca heidi Result [facility] [address] [place] [address] * (ABNORMAL) Basic Metabolic Panel (06/08/2025 4:48 AM EDT) Only the most recent of2 resultswithin the time period is included. Glucose, Plasma 105(H) 74 - 99 mg/dL 06/08/2025 5:29 AM EDT [facility] BUN, Plasma 9 7 - 21 mg/dL 06/08/2025 5:29 AM EDT [facility] Creatinine, Plasma 0.72 0.70 - 1.20 mg/dL 06/08/2025 5:29 AM EDT [facility] BUN/Creatinine Ratio 13 06/08/2025 5:29 AM EDT [facility] Sodium, Plasma 140 136 - 145 mmol/L 06/08/2025 5:29 AM EDT [facility] Potassium, Plasma 5.1(H) 3.6 - 4.9 mmol/L 06/08/2025 5:29 AM EDT [facility] Chloride, Plasma 104 97 - 107 mmol/L 06/08/2025 5:29 AM EDT [facility] CO2, Plasma 27 22 - 29 mmol/L 06/08/2025 5:29 AM EDT [facility] Anion Gap 9 6 - 16 mmol/L 06/08/2025 5:29 AM EDT [facility] Total Calcium, Plasma 8.6(L) 8.9 - 10.2 mg/dL 06/08/2025 5:29 AM EDT [facility] eGFRcr 117.7 mL/min/1.7 3m*2 06/08/2025 5:29 AM EDT [facility] Comment:Reported eGFRcr in m L/min/1.73m2 is based the CKD-EPI 2020 equation that does not use a race coefficient. Blood Venous blood specimen / Unknown Venipuncture / Unknown 06/08/2025 4:48 AM EDT 06/08/2025 4:57 AM EDT us Anais Easton MD LAB BLOOD ORDERAB[place] [address] * Surgical Pathology Exam (06/07/2025 2:04 PM EDT) Case Report Surgical Pathology Case: [id number] Authorizing Provider: Anais Easton MD Collected: 06/07/2025 1404 Ordering Location: [facility] A OPERATING ROOM Received: 06/07/2025 1525 Pathologist: Heidy Lowe MD Specimens: A) - Other (specify site), intraabdominal mass B) - Other (specify site), explanted abdominal mesh C) - Other (specify site), posterior rectus sheath 10:44 AM EDT [facility] Final Diagnosis A. INTRAABDOMINAL MASS, [...] - NEGATIVE FOR MALIGNANCY. 10:44 AM EDT [facility] at 1044 EDT Clinical Information Infected hernioplasty mesh, initial encounter (CMS/HCC) [T85.79XA] 10:44 AM EDT [facility] Special and Immunohistochemical Stains Special Stain: A2-2 GMS : Negative A2-3 Acid Fast Bacteria : Negative All controls show appropriate reactivity. All immunohistochemis try, in situ hybridization, and histochemical tests were developed by and are performed at the [facility], [address] [place] [address]. All tests reported here, except those addressing [...] negativity on decalcified specimens. 10:44 AM EDT [facility] Gross Description A. INTRAABDOMINAL MASS Received fresh and subsequently placed in formalin labeled intra-abdominal mass is a portion of red-pink to yellow-sharp soft and slightly fibrous tissue measuring 2.7 x 2.7 x 1.0 cm. The specimen is serially sectioned and client support representative sections are submitted in cassettes A1-A2. [...] cm. The specimen is serially sectioned and client support representative sections are submitted in cassette C1. Cold Time: 57m Floridalma Valencia 10:44 AM EDT [facility] Note: A resident was involved in the service. I attest I examined the relevant preparations for the specimens and confirmed the diagnosis or interpretation. 10:44 AM EDT [facility] Tissue Topography unknown / Unknown 06/07/2025 2:04 PM EDT 06/07/2025 3:25 PM EDT Comment:Pre-op diagnosis: Infected hernioplasty mesh, initial encounter (CMS/HCC) [T85.79XA] Tissue specimen (specimen) Topography unknown / Unknown 06/07/2025 2:05 PM EDT 06/07/2025 3:25 PM EDT Comment:Pre-op diagnosis: Infected hernioplasty mesh, initial encounter (CMS/HCC) [T85.79XA] Tissue specimen (specimen) Topography unknown / Unknown 06/07/2025 2:28 PM EDT 06/07/2025 3:25 PM EDT Comment:Pre-op diagnosis: Infected hernioplasty mesh, initial encounter ([facility]) [T85.79XA] us Anais Easton MD LAB PATHOLOGY ORDERABLES Final Result [facility] [address] [place] [address] * Peripheral IV (06/07/2025 12:58 PM EDT) Narrative Deniz Arias MD - 06/07/2025 12:58 PM EDT Deniz Arias MD 06/08/2025 6:51 AM Peripheral IV Date/Time: 06/07/2025 12:58 PM Placement Needle size: 18 G Location: hand Site prep: alcohol Technique: anatomical landmarks Attempts: 1 Deniz Arias MD ANESTHESIA ORDERABLES Final Res ult * PB POINT OF CARE IMAGING PLACEHOLDER (06/07/2025 12:55 PM EDT) Narrative Josh Dias MD - 06/07/2025 12:55 PM EDT Josh Dais MD 06/07/2025 1:36 PM Peripheral Block Patient [...] monitoring: continuous pulse ox, heart rate and professor 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 Laterality: left [...] MD ANESTHESIA ORDERABLES Final Resu lt * VT AN ELECTIVE ENDOTRACHEAL AIRWAY, PB ANESTHESIA PLACEHOLDER [...] Additional Comments Atraumatic. No change to dentition. us Deniz Arias MD ANESTHESIA ORDERABLES Final Res ult * Type and Screen (06/07/2025 11:48 AM EDT) ABO/Rh A Positive 06/07/2025 11:54 AM EDT BLO[facility] Antibody Screen Negative 06/07/2025 11:54 AM EDT [facility] Specimen Expiration 06/10/2025 23:59 06/07/2025 11:54 AM EDT [facility] Blood Venous blood specimen / Unknown Venipuncture / Unknown 06/07/2025 11:48 AM EDT 06/07/2025 11:54 AM EDT us Anais Easton MD LAB BLOOD BANK TEST ORDER MARU Final Result BLOOD BANK [address] [place] [address], * POCT glucose meter (06/07/2025 11:46 AM [...] 06/07/2025 11:47 AM EDT [facility] Container Repairer ID Carrie Brandt 025 11:47 AM EDT [facility] Device ID [id number] 06/07/2025 11:47 AM EDT [facility] Specimen Type POC Venous 06/07/2025 11:47 AM EDT [facility] Blood Venous blood specimen / Unknown 06/07/2025 11:46 AM EDT 06/07/2025 11:47 AM EDT us Anais Easton MD LAB POINT OF CARE TEST DOCKED DEVICE UNSOLICITED RESULTS Final Result [facility] [address] [place] [address] * (ABNORMAL) Comprehensive metabolic panel (05/30/2025 2:55 PM EDT) Glucose, Plasma 81 74 - 99 mg/dL 05/30/2025 5:45 PM EDT [facility] BUN, Plasma 8 7 - 21 mg/dL 05/30/2025 5:45 PM EDT [facility] Creatinine, Plasma 0.91 0.70 - 1.20 mg/dL 05/30/2025 5:45 PM EDT [facility] BUN/Creatinine Ratio 9 05/30/2025 5:45 PM EDT [facility] Sodium, Plasma 140 136 - 145 mmol/L 05/30/2025 5:45 PM EDT [facility] Potassium, Plasma 4.6 3.6 - 4.9 mmol/L 05/30/2025 5:45 PM EDT [facility] Chloride, Plasma 104 97 - 107 mmol/L 05/30/2025 5:45 PM EDT [facility] CO2, Plasma 25 22 - 29 mmol/L 05/30/2025 5:45 PM EDT [facility] Anion Gap 11 6 - 16 mmol/L 05/30/2025 5:45 PM EDT [facility] Total Calcium, Plasma 9.0 8.9 - 10.2 mg/dL 05/30/2025 5:45 PM EDT [facility] Total Protein 6.8 6.3 - 7.9 g/dL 05/30/2025 5:45 PM EDT [facility] Albumin, Plasma 4.2 3.5 - 5.2 g/dL 05/30/2025 5:45 PM EDT [facility] AST, Plasma 29 10 - 50 U/L 05/30/2025 5:45 PM EDT [facility] Comment:Hemolyzed, result ma y be falsely increased. ALT, Plasma 26 10 - 50 U/L 05/30/2025 5:45 PM EDT [facility] Alkaline Phosphatase, Plasma 93 40 - 115 U/L 05/30/2025 5:45 PM EDT [facility] Total Bilirubin, Plasma <0.2(L) 0.2 - 1.1 mg/dL 05/30/2025 5:45 PM EDT [facility] eGFRcr 108.6 mL/min/1.7 3m*2 05/30/2025 5:45 PM EDT [facility] Comment:Reported eGFRcr in m L/min/1.73m2 is based the CKD-EPI 2020 equation that does not use a race coefficient. Blood Venous blood specimen / Unknown Venipuncture / Unknown 05/30/2025 2:55 PM EDT 05/30/2025 2:59 PM EDT us Pat PATEL LAB BLOOD ORDERABLES Final Result [facility] [address] [place] [address] * CT Abdomen Pelvis w IV Contrast [...] MD IMG CT PROCEDURES Final R esult * Chlamydia trachomatis DNA by PCR (03/18/2025 11:37 AM EDT) Chlamydia trachomatis DNA PCR Result Not Detected Not Detected 03/19/2025 10:44 PM EDT [facility] Urine Urine specimen / Unknown Non-blood Collection / Unknown 03/18/2025 11:37 AM EDT 03/18/2025 11:37 AM EDT Narrative [facility] - 03/19/2025 10:44 PM EDT This test is performed by the Netac m2000 instrument for Real Time PCR C. trachomatis and N. gonorrhea. This test is FDA approved for use with endocervical, vaginal, and urine specimens. This test is used for clinical purposes. It should not be regarded as invesigational or for research. The [facility] is certified under the Clinical Laboratory Improvement Amendments of 1988 (CLIA-88) as qualified to perform high complexity clinical laboratory testing. us Douglas PATEL LAB MICROBIOLOGY - GENERAL ORD ERABLES Final Result Performing Organization Address [facility]/[place] [address] * Neisseria gonorrhea DNA by PCR (03/18/2025 11:37 AM EDT) Neisseria gonorrhea DNA PCR Result Not Detected Not Detected. 03/19/2025 10:44 PM EDT [facility] Urine Urine specimen / Unknown Non-blood Collection / Unknown 03/18/2025 11:37 AM EDT 03/18/2025 11:37 AM EDT Narrative [facility] - 03/19/2025 10:44 PM EDT This test is performed by the Or[employer] m2000 instrument for Real Time PCR C. trachomatis and N. gonorrhea. This test is FDA approved for use with endocervical, vaginal, and urine specimens. This test is used for clinical purposes. It should not be regarded as invesigational or for research. The [facility] is certified under the Clinical Laboratory Improvement Amendments of 1988 (CLIA-88) as qualified to perform high complexity clinical laboratory testing. us Douglas PATEL LAB MICROBIOLOGY - GENERAL ORD ERABLES Final Result Performing Organization Address City/[facility]/ZIP Co de Phone Number [facility] [address] [place] [address] * (ABNORMAL) Hepatitis B Surface Antibody, Quantitative (03/18/2025 11:34 AM EDT) Pathologist [facility] Hepatitis B Surface Antibody, Quantitative 193.07(H) NonReacti ve: <8, Grayzone: 8 - <12, Reactive: >= 12 mIU/mL 03/18/2025 5:25 PM EDT [facility] Comment: Reactive. Individual is considered immune to HBV infection. Blood Venous blood specimen / Unknown Venipuncture / Unknown 03/18/2025 11:34 AM EDT 03/18/2025 11:36 AM EDT Douglas PATEL LAB BLOOD ORDERABLES Final Res ult Performing Organization Address [facility] de Phone Number [facility] [address] [place] [address] * Treponema Pallidum (Syphilis) Antibodies with Reflex to RPR and RPR Titer (Those with NO known Syphilis) (03/18/2025 11:34 AM EDT) [facility] Syphilis Antibody (IgG+IgM) Nonreactive Nonreactive 03/18/2025 5:25 PM EDT [facility] Comment:Nonreactive. No sero logic evidence of syphilis. No follow-up necessary unless clinically indicated (e.g., early syphilis). Blood Venous blood specimen / Unknown Venipuncture / Unknown 03/18/2025 11:34 AM EDT 03/18/2025 11:36 AM EDT Douglas PATEL LAB BLOOD ORDERABLES Final Res ult Performing Organization Address [facility] Co de Phone Number [facility] [address] [place] [address] * HIV 1 & 2 Antibody/Antigen Screen (03/18/2025 11:34 AM EDT) [facility] HIV 1 & 2 Antibody/Antigen Screen Non Reactive Non Reactive 03/18/2025 5:12 PM EDT [facility] Comment:Screening for HIV 1 & 2 antibodies, and P24 antigen is NONREACTIVE. No confirmatory testing is required. Blood Venous blood specimen / Unknown Venipuncture / Unknown 03/18/2025 11:34 AM EDT 03/18/2025 11:36 AM EDT us Douglas Tonya Tommy PATEL LAB BLOOD ORDERABLES Final Res ult [facility] [address] [place] [address] * (ABNORMAL) Hepatitis A Antibody IgG (03/18/2025 11:34 AM EDT) Hepatitis A Antibody IgG Positive(A ) Negative 03/18/2025 5:25 PM EDT [facility] Blood Venous blood specimen / Unknown Venipuncture / Unknown 03/18/2025 11:34 AM EDT 03/18/2025 11:36 AM EDT us Douglas PATEL LAB BLOOD ORDERABLES Final Res ult Performing Organization Address [facility]/ZIP Co de Phone Number [facility] [address] [place] [address] * Hepatitis B Core Total Antibody IgG,IgM (03/18/2025 11:34 AM EDT) Hepatitis B Core Total Antibody IgG,IgM Negative Negative 03/18/2025 5:25 PM EDT [facility] Blood Venous blood specimen / Unknown Venipuncture / Unknown 03/18/2025 11:34 AM EDT 03/18/2025 11:36 AM EDT Douglas PATEL LAB BLOOD ORDERABLES Final Res ult [facility] [address] [place] [address] * Hepatitis B Surface Antigen (03/18/2025 11:34 AM EDT) Hepatitis B Surf Antigen Negative Negative 03/18/2025 5:25 PM EDT [facility] Blood Venous blood specimen / Unknown Venipuncture / Unknown 03/18/2025 11:34 AM EDT 03/18/2025 11:36 AM EDT us Douglas PATEL LAB BLOOD ORDERABLES Final Res ult [facility] [address] [place] [address] * (ABNORMAL) Hepatitis C Antibody - ED (02/08/2025 2:26 PM EDT) Hepatitis C Antibody Positive(A ) Negative 02/08/2025 3:26 PM EDT [facility] Blood Venous blood specimen / Unknown Venipuncture / Unknown 02/08/2025 2:26 PM EDT 02/08/2025 2:39 PM EDT us Leonarda Aguilar MD LAB BLOOD ORDERABLES Final R esult Performing Organization Address City/[facility]/ZIP Co de Phone Number [facility] [address] [place] [address] from Last 3 Months or Most Recently Relevant to Health Maintenance Additional Health Concerns Infection Onset Date Last Indicated MRSA Comment:Added from external infection. Source: [facility]. 10/07/[address] [place] [address] MEDICAID Advance Directives * Full Code (Latest Code Status on File) Date Activated Date Inactivated Comments 06/07/2025 3:16 PM 06/08/2025 4:18 PM Question Answer Comments I have reviewed the capacity from the link above and, if needed, have updated to appropriate status: Yes Care Teams Curator Of Manuscripts Relationship Specialty Start Date End Date Day, AMANDA Gaston [address] [place] [address] PCP - General 12/26/20
--- OUTSIDE RECORDS SUMMARY | 2025-06-17 14:07 | XMS_ITS | Encounter Summary ---
Author Organization Healthcare Address [address] [place] [address] Care Team Providers Care Burring Machine Operator Name Role Phone Day, Marilin PATEL Primary Care Provider [phone] Encounter Details Date Type Department Care Team (Late st Contact Info) Description 09/21/2024 Orders Only External Location [address] [place] [phone] Provider, External Social History Tobacco Use Types [...] Description 06/20/2025 11:00 AM EST Office Visit [facility] [address] [place] [address] Douglas Sanders PA [address] [facility] [address] [place] [address] 06/25/2025 11:30 AM EST Office Visit [facility] General Surgery [address] [place] [phone] Dominique Garcia APRN [address] [place] [phone] documented as of this encounter Procedures Procedure Name Priority Date/Time Associated Diagnosis Comments CT OUTSIDE IMAGES 09/21/2024 9:29 AM EST documented in this encounter Results * CT OUTSIDE IMAGES (09/21/2024 9:29 AM EST) Anatomical Region Laterality Modality Computed Tomogra phy 09/21/2024 9:29 AM EST us External Provider IMG CT PROCEDURES Final Result documented in this encounter Visit Diagnoses Not on filedocumented in this encounter Additional Health Concerns Infection Onset Date Last Indicated Resolved Time MRSA Comment:Added from external infection. Source: . 10/07/2023 documented as of this encounter Care Teams Burring Machine Operator Relationship Specialty Start Date End Date Marilin Langley PA [address] [place] [address] PCP - General 12/26/20 documented as of this encounter
--- OUTSIDE RECORDS SUMMARY | 2025-06-17 14:07 | XMS_ITS ---
Author Organization [facility] Address [address] [place] [address] Care Team Providers Care Sales Representative Sales Manager Name Role Phone Marilin Langley Primary Care Provider [phone] PrEP Status:Active (Active) Start date:03/18/2025 Enrollment date:03/18/2025 Overview Pre-Exposure Prophylaxis (PrEP) Program Participants Case Team Name Relationship Phone Caterina Robles(Responsible Staff) Peer Support Spec ialist Continued Care and Services Coordination
--- OUTSIDE RECORDS SUMMARY | 2025-06-17 14:07 | XMS_ITS | Encounter Summary ---
Author Organization Healthcare Address [address] [place] [address] Care Team Providers Care Fellmongering Machine Operator Name Role Phone Day, Marilin PATEL Primary Care Provider [phone] Encounter Details Date Type Department Care Team (Late st Contact Info) Description 09/14/2024 Orders Only External Location [address] [place] [id number] Provider, External Social History Tobacco Use Types [...] 11:00 AM EST Office Visit [facility] [address] [place] [address] Douglas Sanders PA [address] [facility] [address] [place] [address] 06/25/2025 11:30 AM EST Office Visit [facility] General Surgery [address] [place] [phone] Dominique Garcia APRN [address] [place] [phone] documented as of this encounter Procedures Procedure Name Priority Date/Time Associated Diagnosis Comments US OUTSIDE IMAGES 09/14/2024 1:25 PM EST documented in this encounter Results * US OUTSIDE IMAGES (09/14/2024 1:25 PM EST) Anatomical Region Laterality Modality Ultrasound 09/14/2024 1:25 PM EST us External Provider IMG US PROCEDURES Final Result documented in this encounter Visit Diagnoses Not on filedocumented in this encounter Additional Health Concerns Infection Onset Date Last Indicated Resolved Time MRSA Comment:Added from external infection. Source: [facility]. 10/07/2023 documented as of this encounter Care Teams Fellmongering Machine Operator Relationship Specialty Start Date End Date Day, AMANDA Gaston [address] [place] [address] PCP - General 12/26/20 documented as of this encounter
--- NOTE | 2025-06-17 14:28 | CT_ITS ---
PROCEDURE INFORMATION: Exam: CT Abdomen And Pelvis With Contrast Exam date and time: 06/17/2025 3:53 PM Age: 40 years old Clinical indication: Abdominal pain TECHNIQUE: Imaging protocol: Computed tomography of the abdomen and pelvis with contrast. Radiation optimization: All CT scans at this facility use at least one of these dose optimization techniques: automated exposure control; mA and/or kV adjustment per patient size (includes targeted exams where dose is matched to clinical indication); or iterative reconstruction. Contrast material: ISOVUE; Contrast volume: 75 ml; Contrast route: IV; COMPARISON: CR XR CHEST 2V 06/17/2025 3:39 PM FINDINGS: Lungs: Lung bases are clear. Liver: Fatty liver changes with associated hepatomegaly measuring 17.7 cm. Liver otherwise unremarkable. Gallbladder and biliary ducts: Normal. No calcified stones. No ductal dilation. Pancreas: Normal. No ductal dilation. Spleen: Normal. No splenomegaly. Adrenal glands: Normal. No mass. Kidneys and ureters: Normal. No hydronephrosis. Stomach and bowel: Partial colectomy of the distal colon with reanastomosis in the upper left side of the pelvis. Multiple diverticula of the descending colon. Small bowel anastomosis in the lower right midabdomen. GI tract structures otherwise unremarkable with no evident wall thickening allowing for incomplete distention. Appendix: Appendix is normal. No evidence of appendicitis. Intraperitoneal space: Unremarkable. No free air. No significant fluid collection. Vasculature: Unremarkable. No abdominal aortic aneurysm. Lymph nodes: Unremarkable. No enlarged lymph nodes. Urinary bladder: Unremarkable as visualized. Reproductive: Unremarkable as visualized. Bones/joints: Unremarkable. No acute fracture. Soft tissues: Skin ari in the midline of the abdomen and pelvis from relatively recent surgery noted. Small dehiscence of the incision site just above the umbilicus incidentally noted. A 10.3 x 2.7 x 7.7 cm multiloculated marginally enhancing fluid collection with associated small amounts of internal air noted in the abdominal wall musculature of the mid abdomen just above the umbilicus centered on axial image 58 and coronal image 14. A 2.4 x 1.7 x 1.8 cm posterior extension of this collection noted which extends into the anterior intra-abdominal fat centered axial image 54 and coronal image 17. Surrounding inflammatory changes noted around these collections. IMPRESSION: 1. A 10.3 x 2.7 x 7.7 cm multiloculated marginally enhancing fluid collection with associated small amounts of internal air suggesting possible abscess noted in the abdominal wall musculature of the mid abdomen just above the umbilicus. An associated 2.4 x 1.7 x 1.8 cm posterior extension of this collection noted extending into the anterior intra-abdominal fat. Surrounding inflammatory changes noted around these collections. 2. Skin ari in the midline of the abdomen and pelvis from relatively recent surgery noted. Small dehiscence of the incision site just above the umbilicus incidentally noted.
--- NOTE | 2025-06-17 14:34 | ED_ITS ---
<Statement entered by Marlo Fleming MD - 06/17/25 16:47> I consulted the HUGH, and we discussed the complexity of the problems being addressed. I approved the treatment and management plan for this patient's care in the emergency department, thus performing a substantial portion of the medical decision making. Prior to the completion of care of this patient, I signed out care to the oncoming attending, Dr. Martinez. 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 by RN): PT had abd surgery on 06/07 to fix an infected hernia mesh @. Pt started feeling weak and fatigued about 3 days after surgery. Pt noticed a small hole in the middle of the incision that was draining clear-yellow fluid around 5 days after surgery. Pt is complaining of pain in that spot. Muscle aches, fever, and cramps. Pt states he has been goig through withdrawal from all the pain medications they gave him from surgery and that is also making him feel bad History of Present Illness HPI narrative: 40-year-old male presents to the ED today for complaint of having abdominal surgery on 06/07 to fix an infected hernia mesh at . Patient started feeling weak, fatigued having chills and hot flashes as well as possible fevers for 3 days since after the surgery. Patient noticed where the incision has dehisced and there is a hole in the incision and this is draining yellow fluid. This has been going on since the . He is also having some muscle aches and cramps. He has been going through withdrawal from all the pain meds that they gave him and he has been feeling terrible. Related Data Allergies Allergy/AdvReac Type Severity Reaction Status Date / Time No Known Allergies Allergy Verified 06/17/25 15:09 PFSH <Norma Lakhani (ED), [employer]ER - Last Filed: 06/17/25 18:50> [facility] Disclaimer: The information contained in this section may have been updated after the patient was seen, as this information can be updated by other users. Social History (Updated 06/17/25 @ 18:50 by Norma Lakhani (ED), [employer]ER) Smoking Status: Former smoker alcohol intake: former current occupational status: other Travel in the last 8 weeks?: None Have you lived/traveled outside US in past 30 days?: No Contact w/someone who lives/traveled outside US past 30 days?: No Exposure to someone with infectious disease in past 14 days?: No Do you have a fever (greater than 100.4 F or 38 C)?: No Have you tested positive for COVID-19?: No Exposed to someone with COVID-19 in past 14 days?: No Do you have a sore throat?: No Do you have a cough?: No Do you have any weakness?: No Do you have any diarrhea?: No Are you experiencing any unusual bleeding?: No Do you have any muscle aches/pain?: No Do you have any abdominal pain?: No Are you experiencing loss of taste or smell?: No <Norma Lakhani (ED), [employer] - Last Filed: 06/17/25 18:50> ROS Obtained: Yes Systems reviewed as appropriate & no additional complaints except as documented Constitutional Constitutional: Reports as per HPI Physical Exam <Norma Lakhani (ED), [employer]ER - Last Filed: 06/17/25 18:50> General General appearance: alert and in no apparent distress Head Head exam: normocephalic Eye Eye exam: Present PERRL and EOMI ENT ENT exam: Present normal oropharynx and mucous membranes moist Neck Neck exam: Present full ROM and trachea midline Respiratory Respiratory exam: Present normal lung sounds bilaterally Cardiovascular Cardiovascular exam: Present regular rate, normal rhythm, normal heart sounds, +S1 and +S2 Abdominal Exam Abdominal exam: Present soft and normal bowel sounds Extremities Exam Extremities exam: Present full ROM and normal capillary refill Neurological Exam Neurological exam: Present alert and oriented X3 Skin Skin exam: Present warm and other (The abdominal wound is draining yellowish- brown drainage from the site.) Medical Decision Making <Norma Nimario (ED), [employer] - Last Filed: 06/17/25 18:50> Medical Records Screening: Per USPSTF and CDC recommendations, given the prevalence of disease in our region, it is our hospital?s policy to screen for HIV and viral Hepatitis for all patients aged 18 and over and those with ongoing risk factors. Nish Inquiry Pt receiving controlled substance: No Nish was queried for this patient: No Vital Signs: 06/17/25 13:42 06/17/25 13:48 06/17/25 19:33 Temperature 99.1 F Temperature Source Oral Pulse Rate 73 64 Pulse Rate [Right] 78 Respiratory Rate 22 22 16 Blood Pressure 113/74 120/60 Blood Pressure [Right Arm] 113/74 Blood Pressure Mean [Right Arm] 87 Blood Pressure Source Automatic Cuff Blood Pressure Source [Right Arm] Automatic Cuff Blood Pressure Position Sitting Sitting Blood Pressure Position [Right Arm] Sitting 02 Sat by Pulse Oximetry 100 100 96 Oxygen Delivery Method Room Air Room Air Lab Data Lab Results 06/17/25 15:14: WBC 14.4 H, RBC 4.95, Hgb 14.0 L, Hct 43.1, MCV 87.1, MCH 28.3, MCHC 32.5, RDW 13.2, Plt Count 537 H, MPV 8.3, Neut % (Auto) 72.9, Lymph % (Auto) 18.0, [place] % (Auto) 7.3, Eos % (Auto) 0.1, Baso % (Auto) 0.6, Neut # (Auto) 10.5 H, Lymph # (Auto) 2.6, [place] # (Auto) 1.1 H, Eos # (Auto) 0.0, Baso # (Auto) 0.1, ESR 38 H, PT 13.4 H, INR 1.23 H, APTT 26.7, Sodium 133 L, Potassium 4.5, Chloride 100, Carbon Dioxide 27, Anion Gap 10.5, BUN 9, Creatinine 0.70, Estimated Creat Clear 193, Estimated GFR 124, Est GFR ( Amer) 150, G lucose 116 H, Lactate 1.0, Calcium 9.4, Magnesium 2.1, Total Bilirubin 0.5, AST 26, ALT 24, Alkaline Phosphatase 87, Total Creatine Kinase 22 L, C-Reactive Protein 309.7 H, Total Protein 8.1, Albumin 4.1, Globulin 4.0 H, A lbumin/Globulin Ratio 1.0 L, Lipase 45 06/17/25 15:49: SARS-CoV-2 (PCR) Not detected, Influenza A Untype (PCR) Not detected, Influenza Type B (PCR) Not detected 06/17/25 18:37: Urine Color Yellow, Urine Appearance Clear, Urine pH 5.5, Ur Specific [place] <= 1.005, Urine Protein Negative, Urine Glucose (UA) Negative, Urine Ketones Negative, Urine Blood Negative, Urine Nitrate Negative, Urine Bilirubin Negative, Urine Urobilinogen 0.2, Ur Leukocyte Esterase Negative, Urine RBC Occasional, Urine WBC Occasional, Ur Squamous Epith Cells None, Urine Bacteria Trace 06/17/25 15:14 06/17/25 15:14 Orders (Tests/Meds): ED MEDICATIONS Generic Name Dose Route Start Last Admin Trade Name Freq PRN Reason Stop Dose Admin Piperacillin Sod/Tazobactam 100 mls @ 200 mls/hr 06/17/25 16:15 06/17/25 17:09 Sod 4.5 gm/ Sodium Chloride IV 06/27/25 16:14 Infused Q8H JENARO Infusion Discontinued Medications Generic Name Dose Route Start Last Admin Trade Name Freq PRN Reason Stop Dose Admin Acetaminophen 1,000 mg 06/17/25 14:28 06/17/25 15:11 Acetaminophen 1,000mg/100ml Vial IV 06/17/25 14:29 1,000 mg ONCE ONE Administration Sodium Chloride 1,000 mls @ 999 mls/hr 06/17/25 14:28 06/17/25 15:29 Sod Chlor 0.9% 1000ml Bag IV 06/17/25 15:28 Not Given .Q1H1M ONE Lactated Ringer's 2,950 mls @ 1,475 mls/hr 06/17/25 14:34 06/17/25 18:24 Lactated Ringer's 1000 Ml Bag 30 ml/kg infuse over 2 hr (2950 ml) 06/17/25 16:33 Infused IV Infusion .Q2H ONE Protocol Vancomycin/PEG/NADA/Lysine/Water 1.75 gm in 350 mls @ 175 mls/hr 06/17/25 16:15 06/17/25 18:34 Vancomycin 1.75gm/350ml (Peg) Premix IV 06/17/25 18:14 175 mls/hr ONCE ONE Administration Iopamidol 75 ml 06/17/25 16:02 06/17/25 16:03 Iopamidol-370 (76%);100ml Bottle IV 06/17/25 16:03 75 ml ONCE ONE Administration Ketorolac Tromethamine 30 mg 06/17/25 14:28 06/17/25 15:11 Ketorolac 30mg/Ml Vial IV 06/17/25 14:29 30 mg ONCE ONE Administration Miscellaneous 1 each 06/17/25 16:15 Vancomycin Consult Request NOTAPPLIC 07/17/25 16:14 CONSULT [facility]Y [facility] Sodium Chloride 10 ml 06/17/25 16:02 06/17/25 16:03 Sodium Chloride 0.9% 10ml Syr (Rad Only) IV 06/17/25 16:03 10 ml ONCE ONE Administration ORDERS Category Date Time Status CT abdomen pelvis w con Stat Cat Scan 06/17/25 14:28 Completed XR chest 2V Stat Exams 06/17/25 14:34 Completed Activated Partial Thrombo Time Stat Lab 06/17/25 15:14 Completed C-Reactive Protein Stat Lab 06/17/25 15:14 Completed CBC [Complete Blood Count Auto Diff] Stat Lab 06/17/25 15:14 Completed Comprehensive Metabolic Panel Stat Lab 06/17/25 15:14 Completed Creatine Kinase Stat Lab 06/17/25 15:14 Completed Erythrocyte Sedimentation Rate Stat Lab 06/17/25 15:14 Completed Lactic Acid Stat Lab 06/17/25 15:14 Completed Lipase Stat Lab 06/17/25 15:14 Completed Magnesium Stat Lab 06/17/25 15:14 Completed Prothrombin Time INR Stat Lab 06/17/25 15:14 Completed Rapid PCR Covid and Flu A/B Stat Lab 06/17/25 15:49 Completed Urinalysis and Microscopic Stat Lab 06/17/25 18:37 Completed Blood Culture Stat Micro 06/17/25 15:14 Ordered Wound Culture and Gram Stain Stat Micro 06/17/25 15:49 Results Medical Decision Narrative: patient is a 40-year-old male presenting to the emergency department for evaluation of abdominal tenderness, drainage from the incision site from the hernia mesh surgery. Patient is hemodynamically stable and nontoxic-appearing upon arrival, afebrile. Differential diagnosis includes infection from surgical site, abscess, among others. Workup will be conducted with hematologic labs, specific imaging, provocative tests. Initial inventions include crystalloid bolus, analgesics, antibiotics. Initial workup reviewed by me hematologic labs are remarkable for White blood cell count 14.4, platelet count 537, sed rate 38, INR was 1.23, sodium 133, potassium 4.5 BUN 9, creatinine 0.70, lactate was 1 AST and ALT were normal CK was 22 RPP was 309. Imaging completed today showed chest x-ray showed bilateral lower lobe atelectasis. CT of abdomen and pelvis shows small dehiscence of the incision site just above the umbilicus incidentally noted a 10.3 x 4.7 x 7.7 cm multiloculated marginally enhancing fluid collection with associated small amount of internal air in the abdominal wall musculature of the mid abdomen just above the umbilicus centered on axial image 58. There is also a 2.4 x 1.7 x 1.8 posterior extension of this collection noted which extends into the anterior intra-abdominal fat centered surrounding inflammatory changes noted around these collections. I have discussed this with Dr. Martinez. I will discuss this with . I talked to Dr. Domingo who accepted patient to [facility] ED. He talked to surgeon who we both talked to on the phone and she accepted patient as well. Patient is safe for discharge to <Scotty Martinez MD - Last Filed: 06/17/25 20:18> Vital Signs: 06/17/25 13:42 06/17/25 13:48 06/17/25 19:33 Temperature 99.1 F Temperature Source Oral Pulse Rate 73 64 Pulse Rate [Right] 78 Respiratory Rate 22 22 16 Blood Pressure 113/74 120/60 Blood Pressure [Right Arm] 113/74 Blood Pressure Mean [Right Arm] 87 Blood Pressure Source Automatic Cuff Blood Pressure Source [Right Arm] Automatic Cuff Blood Pressure Position Sitting Sitting Blood Pressure Position [Right Arm] Sitting 02 Sat by Pulse Oximetry 100 100 96 Oxygen Delivery Method Room Air Room Air Lab Data Lab Results 06/17/25 15:14: WBC 14.4 H, RBC 4.95, Hgb 14.0 L, Hct 43.1, MCV 87.1, MCH 28.3, MCHC 32.5, RDW 13.2, Plt Count 537 H, MPV 8.3, Neut % (Auto) 72.9, Lymph % (Auto) 18.0, [place] % (Auto) 7.3, Eos % (Auto) 0.1, Baso % (Auto) 0.6, Neut # (Auto) 10.5 H, Lymph # (Auto) 2.6, [place] # (Auto) 1.1 H, Eos # (Auto) 0.0, Baso # (Auto) 0.1, ESR 38 H, PT 13.4 H, INR 1.23 H, APTT 26.7, Sodium 133 L, Potassium 4.5, Chloride 100, Carbon Dioxide 27, Anion Gap 10.5, BUN 9, Creatinine 0.70, Estimated Creat Clear 193, Estimated GFR 124, Est GFR ( Amer) 150, G lucose 116 H, Lactate 1.0, Calcium 9.4, Magnesium 2.1, Total Bilirubin 0.5, AST 26, ALT 24, Alkaline Phosphatase 87, Total Creatine Kinase 22 L, C-Reactive Protein 309.7 H, Total Protein 8.1, Albumin 4.1, Globulin 4.0 H, A lbumin/Globulin Ratio 1.0 L, Lipase 45 06/17/25 15:49: SARS-CoV-2 (PCR) Not detected, Influenza A Untype (PCR) Not detected, Influenza Type B (PCR) Not detected 06/17/25 18:37: Urine Color Yellow, Urine Appearance Clear, Urine pH 5.5, Ur Specific [place] <= 1.005, Urine Protein Negative, Urine Glucose (UA) Negative, Urine Ketones Negative, Urine Blood Negative, Urine Nitrate Negative, Urine Bilirubin Negative, Urine Urobilinogen 0.2, Ur Leukocyte Esterase Negative, Urine RBC Occasional, Urine WBC Occasional, Ur Squamous Epith Cells None, Urine Bacteria Trace Orders (Tests/Meds): ED MEDICATIONS Generic Name Dose Route Start Last Admin Trade Name Freq PRN Reason Stop Dose Admin Piperacillin Sod/Tazobactam 100 mls @ 200 mls/hr 06/17/25 16:15 06/17/25 17:09 Sod 4.5 gm/ Sodium Chloride IV 06/27/25 16:14 Infused Q8H JENARO Infusion Discontinued Medications Generic Name Dose Route Start Last Admin Trade Name Freq PRN Reason Stop Dose Admin Acetaminophen 1,000 mg 06/17/25 14:28 06/17/25 15:11 Acetaminophen 1,000mg/100ml Vial IV 06/17/25 14:29 1,000 mg ONCE ONE Administration Sodium Chloride 1,000 mls @ 999 mls/hr 06/17/25 14:28 06/17/25 15:29 Sod Chlor 0.9% 1000ml Bag IV 06/17/25 15:28 Not Given .Q1H1M ONE Lactated Ringer's 2,950 mls @ 1,475 mls/hr 06/17/25 14:34 06/17/25 18:24 Lactated Ringer's 1000 Ml Bag 30 ml/kg infuse over 2 hr (2950 ml) 06/17/25 16:33 Infused IV Infusion .Q2H ONE Protocol Vancomycin/PEG/NADA/Lysine/Water 1.75 gm in 350 mls @ 175 mls/hr 06/17/25 16:15 06/17/25 18:34 Vancomycin 1.75gm/350ml (Peg) Premix IV 06/17/25 18:14 175 mls/hr ONCE ONE Administration Iopamidol 75 ml 06/17/25 16:02 06/17/25 16:03 Iopamidol-370 (76%);100ml Bottle IV 06/17/25 16:03 75 ml ONCE ONE Administration Ketorolac Tromethamine 30 mg 06/17/25 14:28 06/17/25 15:11 Ketorolac 30mg/Ml Vial IV 06/17/25 14:29 30 mg ONCE ONE Administration Miscellaneous 1 each 06/17/25 16:15 Vancomycin Consult Request NOTAPPLIC 07/17/25 16:14 CONS[facility]Y [facility] Sodium Chloride 10 ml 06/17/25 16:02 06/17/25 16:03 Sodium Chloride 0.9% 10ml Syr (Rad Only) IV 06/17/25 16:03 10 ml ONCE ONE Administration ORDERS Category Date Time Status CT abdomen pelvis w con Stat Cat Scan 06/17/25 14:28 Completed XR chest 2V Stat Exams 06/17/25 14:34 Completed Activated Partial Thrombo Time Stat Lab 06/17/25 15:14 Completed C-Reactive Protein Stat Lab 06/17/25 15:14 Completed CBC [Complete Blood Count Auto Diff] Stat Lab 06/17/25 15:14 Completed Comprehensive Metabolic Panel Stat Lab 06/17/25 15:14 Completed Creatine Kinase Stat Lab 06/17/25 15:14 Completed Erythrocyte Sedimentation Rate Stat Lab 06/17/25 15:14 Completed Lactic Acid Stat Lab 06/17/25 15:14 Completed Lipase Stat Lab 06/17/25 15:14 Completed Magnesium Stat Lab 06/17/25 15:14 Completed Prothrombin Time INR Stat Lab 06/17/25 15:14 Completed Rapid PCR Covid and Flu A/B Stat Lab 06/17/25 15:49 Completed Urinalysis and Microscopic Stat Lab 06/17/25 18:37 Completed Blood Culture Stat Micro 06/17/25 15:14 Ordered Wound Culture and Gram Stain Stat Micro 06/17/25 15:49 Results Medical Decision Narrative: patient is a 40-year-old male presenting to the emergency department for evaluation of abdominal tenderness, drainage from the incision site from the hernia mesh surgery. Patient is hemodynamically stable and nontoxic-appearing upon arrival, afebrile. Differential diagnosis includes infection from surgical site, abscess, among others. Workup will be conducted with hematologic labs, specific imaging, provocative tests. Initial inventions include crystalloid bolus, analgesics, antibiotics. Initial workup reviewed by [facility] hematologic labs are remarkable for White blood cell count 14.4, platelet count 537, sed rate 38, INR was 1.23, sodium 133, potassium 4.5 BUN 9, creatinine 0.70, lactate was 1 AST and ALT were normal CK was 22 RPP was 309. Imaging completed today showed chest x-ray showed bilateral lower lobe atelectasis. CT of abdomen and pelvis shows small dehiscence of the incision site just above the umbilicus incidentally noted a 10.3 x 4.7 x 7.7 cm multiloculated marginally enhancing fluid collection with associated small amount of internal air in the abdominal wall musculature of the mid abdomen just above the umbilicus centered on axial image 58. There is also a 2.4 x 1.7 x 1.8 posterior extension of this collection noted which extends into the anterior intra-abdominal fat centered surrounding inflammatory changes noted around these collections. I have discussed this with Dr. Martinez. I will discuss this with . I talked to Dr. Domingo who accepted patient to [facility] ED. He talked to surgeon who we both talked to on the phone and she accepted patient as well. Patient is safe for transfer to I was consulted by the HUGH, and we discussed the complexity of the problems being addressed. I approve the treatment and management plan for this patient's care in the emergency department, thus performing a substantive portion of the medical decision making. Patient remained in the ER until 2018 when EMS arrived for transport. He remained stable throughout his ED visit and was appropriate for transfer at this time. Scotty Martinez MD Critical Care <Norma Lakhani (ED), [employer]BER P[employer]ER - Last Filed: 06/17/25 18:50> Critical Care Time Critical Care Time: No
--- NOTE | 2025-06-17 14:34 | XR_ITS ---
FINAL REPORT CLINICAL HISTORY: sepsis FINDINGS: 2 views of the chest were obtained . The heart is normal in size. The mediastinum is within normal limits. There is bilateral lower lobe atelectasis. The lungs are otherwise clear. There is no pneumothorax. Osseous structures are unremarkable. IMPRESSION: Bilateral lower lobe atelectasis. Reviewed, Interpreted and Dictated by Moira Hines MD Transcribed by Rosie Parker Authenticated and . [facility]
[2025-06-17] MEDS: ACETAMINOPHEN 1,000MG/100ML VIAL 1000 MG IV (15:11)
[2025-06-17] MEDS: KETOROLAC 30MG/ML VIAL 30 MG IV (15:11)
[2025-06-17] MEDS: LACTATED RINGERS 1475 ML IV (15:21)
[2025-06-17 15:29] LABS: Hematocrit 43.1 % (42.0-52.0); Hemoglobin 14.0 g/dL (14.1-18.0); Immature Granulocytes % 1.1 %; Mean Corpuscular HGB Conc 32.5 g/dL (31.8-35.4); Mean Corpuscular Hemoglobin 28.3 pg (27.0-31.2); Mean Corpuscular Volume 87.1 fl (80-94); Nucleated Red Blood Cells % 0 %; Platelet Count 537 K/mm3 (142-424); Red Blood Count 4.95 M/mm3 (4.60-6.20); Red Cell Distribution Width-SD 42.4 fL; White Blood Count 14.4 K/mm3 (4.8-10.8)
--- NOTE | 2025-06-17 15:30 | PC.NURSE ---
provider ok with one blood culture set being obtained
[2025-06-17 15:44] LABS: Activated Partial Thrombo Time 26.7 seconds (22.8-30.6); Alanine Aminotransferase 24 U/L (12-78); Albumin Level 4.1 g/dl (3.5-5.0); Albumin/Globulin Ratio 1.0 (1.1-1.8); Alkaline Phosphatase 87 U/L (38-126); Anion Gap 10.5 mEq/L (5-15); Aspartate Amino Transferase 26 U/L (17-59); Bilirubin,Total 0.5 mg/dl (0.2-1.3); Blood Urea Nitrogen 9 mg/dl (9-20); Calcium 9.4 mg/dl (8.4-10.2); Carbon Dioxide 27 mmol/L (22.0-30.0); Chloride 100 mmol/L (98-107); Creatine Kinase 22 U/L (55-170); Creatinine Clearance Estimated 193 mL/min (50-200); Creatinine,Serum 0.70 mg/dl (0.66-1.25); Estimated Glomerular Filt Rate 124 ml/min (>60); GFR (African American) 150 ML/MIN (>60); Globulin 4.0 g/dL (1.3-3.2); Glucose 116 mg/dl (74-100); INR 1.23 (0.9-1.1); Lipase 45 U/L (23-300); Magnesium 2.1 mg/dl (1.6-2.3); Potassium 4.5 mmoL/L (3.5-5.1); Prothrombin Time 13.4 seconds (10.1-12.5); Sodium 133 mmol/L (136-145); Total Protein,Serum 8.1 g/dl (6.3-8.2)
[2025-06-17 15:50] LABS: C-Reactive Protein 309.7 mg/L (0-4)
[2025-06-17 15:55] LABS: Coronavirus 19, PCR Not Detected (NotDetected); Influenza A, PCR Not Detected (NotDetected); Influenza B, PCR Not Detected (NotDetected)
[2025-06-17] MEDS: IOPAMIDOL-370 (76%);100ML BOTTLE 75 ML IV (16:03)
[2025-06-17] MEDS: SODIUM CHLORIDE 0.9% 10ML SYR (RAD ONLY) 10 ML IV (16:03)
[2025-06-17] MEDS: PIPERACILLIN/TAZO 4.5 GM in 0.9 % SODIUM CHLORIDE 100 ML IV (16:35)
[2025-06-17] MEDS: VANCOMYCIN/WATER FOR INJ (PEG) 1.75 GM/350 ML PIGGYBACK IV (18:34)
[2025-06-17 18:42] LABS: Microscopic, Urine URINE MICROSCOPIC (MICROSCOPIC)
[2025-06-17 18:48] LABS: Bilirubin,Urine Negative (Negative); Color,Urine YELLOW (Yellow); Glucose,Urine (UA) Negative (Negative); Ketones,Urine Negative (Negative); Leukocyte Esterase,Urine Negative (Negative); PH,Urine 5.5 (5.0-8.5); Protein,Urine Negative (Negative); Specific Gravity, Urine <= 1.005 (1.005-1.030); Urobilinogen,Urine 0.2 EU/dl (0.2)
--- NOTE | 2025-06-17 18:50 | PC.NURSE ---
call made to EMS for pt transfer to [facility]
--- NOTE | 2025-06-17 18:50 | PC.NURSE ---
report called to tae at er
[2025-06-17 19:33] VITALS: BP 120/60; PULSE 64; RESP 16; O2SAT 96
--- NOTE | 2025-06-17 19:35 | PC.NURSE ---
spoke with [facility] regarding transfer to ensure they were aware.
[2025-06-17 19:53] LABS: Bacteria,Urine Trace /lpf; RBC,Urine Occasional #/hpf (0-3); WBC,Urine Occasional #/hpf (0-3)
[2025-06-17 20:22] VITALS: BP 134/68; PULSE 74; RESP 16; TEMP 37.2; O2SAT 100
--- NOTE | 2025-06-20 05:05 | PC.NURSE ---
wound culture results faxed to ED
== END 2025-06-17 20:25 | disposition other institution (70) ==
PROVIDERS: Nurse Practitioner; Emergency Provider Student in an Organized Health Care Education/Training Program; PCP Family Medicine
DX: T81.43XA Infection following a procedure, organ and space surgical site, initial encounter (principal); T81.83XA Persistent postprocedural fistula, initial encounter; Z98.890 Other specified postprocedural states; B95.62 Methicillin resistant Staphylococcus aureus infection as the cause of diseases classified elsewhere
CPT/HCPCS: 71046; 74177; 80053; 81001; 82550; 83605; 83690; 83735; 85025; 85610; 85651; 85730; 86140; 87040; 87070; 87077; 87186; 87205; 87636; 96361; 96365; 96366; 96375; 99285; J0131; J1885; J2543; J3375; J7120; Q9967